=== PATIENT | female | born 1990 | race American Indian/Alaskan Native ===

== ENCOUNTER 2018-07-08 14:14 | Inpatient (IN) | payer MEDICAID ==
[2018-07-08] MEDS ORDERED: TYLENOL PO PRN (15:34)
[2018-07-08] MEDS: BENADRYL IV PRN (18:44)
[2018-07-08] MEDS: DILAUDID IV SCH ×3 (18:44→23:42)
[2018-07-08 18:52] LABS: Hemoglobin 6.2 gm/dl (10.1-14.3); Mean Corpuscular HGB Conc 35 % (30-34); Mean Corpuscular Volume 90 fl (79-97); Platelet Count 267 K/mm3 (140-440); Red Blood Count 1.96 M/mm3 (3.65-5.03)
[2018-07-08] MEDS ORDERED: ZOFRAN IV PRN (19:02)
[2018-07-08 19:08] LABS: Hematocrit 17.6 % (30.3-42.9); Red Cell Distribution Width 21.9 % (13.2-15.2)
--- NOTE | 2018-07-08 19:11 | History and Physical Report ---
History of Present Illness Date of examination: 07/08/18 Date of admission: 07/08/18 16:37 Chief complaint: Sickle pain crisis. History of present illness: Patient seen/examined, she had presented to the office, with pain crisis, and low grade temp. she was examined, and determined that she needed a direct admit to the Hospital , for sxs control, and management of other co morbid issues. She was in the hospital ER few days ago, hydrated, and went home but pain crisis started again, hence this admission. she does have hx of chronic iron overload, due to multiple blood transfusion.Will check her iron level this admission. Past History Past Medical History: anemia Social history: single, lives with family Family history: no significant family history Medications and Allergies Allergies Allergy/AdvReac Type Severity Reaction Status Date / Time morphine Allergy Unknown Verified 01/24/18 13:20 oxycodone [From Percocet] Allergy Unknown Verified 01/24/18 13:20 vancomycin AdvReac Unknown Verified 01/24/18 13:20 Home Medications Medication Instructions Recorded Confirmed Last Taken Type Folic Acid [Folvite] 1 mg PO DAILY 01/24/18 03/25/18 2 Days Ago History ~01/22/18 10 Hydroxyurea [Hydrea] 500 mg PO DAILY 01/24/18 03/25/18 2 Days Ago History ~01/22/18 500 OxyCONTIN ER TAB 10 mg PO Q12H 03/25/18 03/25/18 Unknown History Active Meds: Active Medications Acetaminophen (Tylenol) 650 mg PO Q6H PRN PRN Reason: Fever >100 Diphenhydramine HCl (Benadryl) 25 mg IV Q6H PRN PRN Reason: Itching Last Admin: 07/08/18 18:44 Dose: 25 mg Documented by: Folic Acid (Folvite) 1 mg PO DAILY [facility] Heparin Sodium (Porcine) (Heparin) 5,000 unit SUB-Q Q12HR SONAL Hydromorphone HCl (Dilaudid) 3 mg IV Q3H SONAL Stop: 07/09/18 16:59 Last Admin: 07/08/18 18:44 Dose: 3 mg Documented by: Hydromorphone HCl (Dilaudid) 2 mg IV Q3H PRN PRN Reason: Pain, Moderate (4-6) Hydroxyurea (Hydrea) 500 mg PO DAILY SONAL Dextrose/Sodium Chloride (D5ns 0.2%) 1,000 mls @ 250 mls/hr IV DIRECT SONAL Miscellaneous Medication (Oxycontin Er Tab) 10 mg PO Q12H SONAL Ondansetron HCl (Zofran) 4 mg IV Q8H PRN PRN Reason: Nausea And Vomiting Review of Systems Constitutional: fatigue, chronic pain Breasts: deferred Respiratory: dyspnea on exertion Menstruation: period normal Musculoskeletal: low back pain Integumentary: dryness Exam - Constitutional Vitals: Temp Pulse Resp BP Pulse Ox 99.6 F 105 H 20 110/68 93 07/08/18 17:31 07/08/18 17:31 07/08/18 17:31 07/08/18 17:31 07/08/18 17:31 General appearance: Present: mild distress, well-nourished - EENT Eyes: Present: PERRL ENT: hearing intact, clear oral mucosa - Neck Neck: Present: supple, normal ROM - Respiratory Respiratory: bilateral: CTA - Cardiovascular Heart Sounds: Present: S1 & S2. Absent: rub, click - Extremities Extremities: pulses symmetrical, No edema Peripheral Pulses: within normal limits - Abdominal General gastrointestinal: Present: soft, non-tender, non-distended, normal bowel sounds Female genitourinary: Present: deferred, normal - Rectal Rectal Exam: deferred - Integumentary Integumentary: Present: clear, warm, dry - Musculoskeletal Musculoskeletal: gait normal, strength equal bilaterally - Psychiatric Psychiatric: appropriate mood/affect, intact judgment & insight - Neurologic Neurologic: CNII-XII intact, moves all extremities Assessment and Plan - Patient Problems (1) Anemia Current Visit: No Status: Chronic Plan to address problem: Replacement transfusion. (2) Iron overload due to repeated red blood cell transfusions Current Visit: No Status: Chronic Plan to address problem: monitor iron level. (3) Dehydration Current Visit: No Status: Acute Plan to address problem: hydration. (4) Leukocytosis Current Visit: No Status: Resolved (5) Sickle cell pain crisis Current Visit: No Status: Acute Plan to address problem: pain control
[2018-07-08] MEDS ORDERED: OXYCONTIN 10 MG PO SCH (19:15)
[2018-07-08] MEDS ORDERED: NACL 0.9% 500 ML 500 ML IV SCH (19:18)
[2018-07-08 19:47] LABS: Basophils % (Manual) 0 % (0.0-1.8); Total Cells Counted 100
[2018-07-08 19:48] LABS: Anisocytosis 2+
[2018-07-08 19:49] LABS: Poikilocytosis 1+; Sickle Cells 2+; Target Cells Few
[2018-07-08 19:51] LABS: Giant Platelets Few; Hypochromasia 2+; Large Platelets Few; Platelet Estimate Consistent w Auto
[2018-07-08 20:07] LABS: % Iron Saturation 52.44 %; Alanine Aminotransferase 34 units/L (7-56); Albumin 4.3 g/dL (3.9-5); BUN/Creatinine Ratio 17; Blood Urea Nitrogen 12 mg/dL (7-17); Calcium 8.8 mg/dL (8.4-10.2); Hemolysis Index 30; Iron 86 ug/dL (37-170); Total Iron Binding Capacity 164 mcg/dL (250-450)
[2018-07-08] MEDS: OxyCONTIN PO SCH (23:15)
[2018-07-08] MEDS: HEPARIN SUB-Q SCH (23:15)
[2018-07-08] MEDS: D5NS 0.2% 1,000 ML IV SCH (23:15)
[2018-07-09] MEDS: BENADRYL IV PRN ×4 (02:41→23:01)
[2018-07-09] MEDS: DILAUDID IV SCH ×5 (02:41→15:29)
[2018-07-09] MEDS: D5NS 0.2% 1,000 ML IV SCH ×3 (02:58→18:24)
[2018-07-09] MEDS: HEPARIN SUB-Q SCH ×2 (09:05→22:42)
[2018-07-09] MEDS: HYDREA PO SCH (09:05)
[2018-07-09] MEDS: FOLVITE PO SCH (09:05)
[2018-07-09] MEDS: OxyCONTIN PO SCH ×2 (10:10→22:43)
--- NOTE | 2018-07-09 16:24 | Progress Note ---
Assessment and Plan - Patient Problems (1) Anemia Current Visit: No Status: Chronic Plan to address problem: Replacement transfusion. completed. (2) Iron overload due to repeated red blood cell transfusions Current Visit: No Status: Chronic Plan to address problem: monitor iron level. elevated,and will do a chelating tx. (3) Dehydration Current Visit: No Status: Acute Plan to address problem: hydration. (4) Sickle cell pain crisis Current Visit: No Status: Acute Plan to address problem: pain control Subjective Date of service: 07/09/18 Principal diagnosis: SCD/Pain crisis/anemia. Interval history: Patient seen/examined, resting in bed, records reviewed, case d/w patient.She is s/p PRBC replacement transfusion.Will start her on Iron chelator. She also complained of lack of appetite, and will give an enhancement. Objective - Constitutional Vitals: Vital Signs - 12hr 07/09/18 07/09/18 07/09/18 05:44 05:48 08:34 Temperature 98.2 F 98.2 F Pulse Rate 99 H 95 H Respiratory 16 16 18 Rate Blood Pressure 114/46 109/54 O2 Sat by Pulse 97 99 Oximetry 07/09/18 07/09/18 07/09/18 08:48 09:03 09:33 Temperature 98.1 F 98.7 F 98.4 F Pulse Rate 89 82 92 H Respiratory 18 18 18 Rate Blood Pressure 109/54 113/59 114/65 O2 Sat by Pulse 97 98 98 Oximetry 07/09/18 07/09/18 07/09/18 10:03 10:05 10:33 Temperature 98.1 F 98.3 F Pulse Rate 89 90 90 Respiratory 18 18 18 Rate Blood Pressure 116/71 114/65 111/70 O2 Sat by Pulse 98 98 99 Oximetry 07/09/18 07/09/18 07/09/18 11:03 11:15 12:00 Temperature 98.4 F 98.0 F 98.4 F Pulse Rate 90 95 H 88 Respiratory 18 20 18 Rate Blood Pressure 110/69 111/70 110/69 O2 Sat by Pulse 98 91 98 Oximetry 07/09/18 07/09/18 07/09/18 12:15 12:45 12:55 Temperature 98.2 F 98.6 F 98.5 F Pulse Rate 93 H 92 H 95 H Respiratory 18 18 18 Rate Blood Pressure 108/65 112/59 111/67 O2 Sat by Pulse 97 94 98 Oximetry 07/09/18 07/09/18 07/09/18 13:04 13:21 13:51 Temperature 98.7 F 98.8 F Pulse Rate 88 92 H Respiratory 18 18 Rate Blood Pressure 112/71 101/69 O2 Sat by Pulse 94 97 98 Oximetry 07/09/18 14:21 Temperature 98.9 F Pulse Rate 18 L Respiratory 18 Rate Blood Pressure 114/77 O2 Sat by Pulse 98 Oximetry General appearance: Present: mild distress - EENT Eyes: PERRL, EOM intact ENT: hearing intact, clear oral mucosa Ears: bilateral: normal - Neck Neck: supple, normal ROM - Respiratory Respiratory effort: normal Respiratory: bilateral: CTA - Breasts Breasts: deferred - Cardiovascular Rhythm: regular Heart Sounds: Present: S1 & S2. Absent: gallop, rub Extremities: pulses intact, No edema, normal color, Full ROM - Gastrointestinal General gastrointestinal: Present: soft, non-tender, non-distended, normal bowel sounds Rectal Exam: deferred - Genitourinary Female genitourinary: deferred - Integumentary Integumentary: clear, warm, dry - Musculoskeletal Musculoskeletal: 1, strength equal bilaterally - Neurologic Neurologic: moves all extremities - Psychiatric Psychiatric: memory intact, appropriate mood/affect, intact judgment & insight - Labs CBC & Chem 7: 07/08/18 18:22 07/08/18 18:22 Labs: Abnormal lab results 07/08/18 07/08/18 07/08/18 Range/Units 18:22 18:22 20:38 WBC 18.3 H (4.5-11.0) K/mm3 RBC 1.96 L (3.65-5.03) M/mm3 Hgb 6.2 L (10.1-14.3) gm/dl Hct 17.6 L* (30.3-42.9) % MCHC 35 H (30-34) % RDW 21.9 H (13.2-15.2) % Lymphocytes % (Manual) 43.0 H (13.4-35.0) % Monocytes % (Manual) 11.0 H (0.0-7.3) % Nucleated RBC % 3.0 H (0.0-0.9) % Seg Neutrophils # Man 7.9 H (1.8-7.7) K/mm3 Lymphocytes # (Manual) 7.9 H (1.2-5.4) K/mm3 Monocytes # (Manual) 2.0 H (0.0-0.8) K/mm3 Eosinophils # (Manual) 0.5 H (0.0-0.4) K/mm3 Sodium 136 L (137-145) mmol/L TIBC 164 L (250-450) mcg/dL Transferrin 133 L (192-382) mg/dl Ferritin 3603.0 H (13.0-400.0) ng/mL Total Bilirubin 3.30 H (0.1-1.2) mg/dL AST 102 H (5-40) units/L Lactate Dehydrogenase 696 H (91-180) units/L Crossmatch 07/08/18 Range/Units 20:38 WBC (4.5-11.0) K/mm3 RBC (3.65-5.03) M/mm3 Hgb (10.1-14.3) gm/dl Hct (30.3-42.9) % MCHC (30-34) % RDW (13.2-15.2) % Lymphocytes % (Manual) (13.4-35.0) % Monocytes % (Manual) (0.0-7.3) % Nucleated RBC % (0.0-0.9) % Seg Neutrophils # Man (1.8-7.7) K/mm3 Lymphocytes # (Manual) (1.2-5.4) K/mm3 Monocytes # (Manual) (0.0-0.8) K/mm3 Eosinophils # (Manual) (0.0-0.4) K/mm3 Sodium (137-145) mmol/L TIBC (250-450) mcg/dL Transferrin (192-382) mg/dl Ferritin (13.0-400.0) ng/mL Total Bilirubin (0.1-1.2) mg/dL AST (5-40) units/L Lactate Dehydrogenase (91-180) units/L Crossmatch See Detail Medications & Allergies - Medications Allergies/Adverse Reactions: Allergies morphine Allergy (Verified 01/24/18 13:20) Unknown oxycodone [From Percocet] Allergy (Verified 01/24/18 13:20) Unknown vancomycin Adverse Reaction (Verified 01/24/18 13:20) Unknown Home Medications: Home Medications Medication Instructions Recorded Confirmed Last Taken Type Folic Acid [Folvite] 1 mg PO DAILY 01/24/18 07/08/18 2 Days Ago History ~01/22/18 10 Hydroxyurea [Hydrea] 1,500 mg PO DAILY 01/24/18 07/08/18 2 Days Ago History ~01/22/18 500 OxyCONTIN ER TAB 10 mg PO Q12H 03/25/18 07/08/18 Unknown History Hydromorphone HCl [Dilaudid] 4 mg PO Q3H PRN 07/08/18 07/08/18 Unknown History Ibuprofen [Ibu] 800 mg PO Q6H 07/08/18 07/08/18 Unknown History Active Medications: Generic Name Dose Route Start Last Admin Trade Name Freq PRN Reason Stop Dose Admin Acetaminophen 650 mg 07/08/18 15:34 Tylenol PO Q6H PRN Fever >100 Diphenhydramine HCl 25 mg 07/08/18 15:50 07/09/18 15:30 Benadryl IV 25 mg Q6H PRN Administration Itching Folic Acid 1 mg 07/09/18 10:00 07/09/18 09:05 Folvite PO 1 mg DAILY SONAL Administration Heparin Sodium (Porcine) 5,000 unit 07/08/18 22:00 07/09/18 09:05 Heparin SUB-Q Not Given Q12HR SONAL Hydromorphone HCl 3 mg 07/08/18 17:00 07/09/18 15:29 Dilaudid IV 07/09/18 16:59 3 mg Q3H SONAL Administration Hydromorphone HCl 2 mg 07/09/18 20:00 Dilaudid IV Q3H PRN Pain, Moderate (4-6) Hydroxyurea 500 mg 07/09/18 10:00 07/09/18 09:05 Hydrea PO 500 mg DAILY SONAL Administration Dextrose/Sodium Chloride 1,000 mls @ 250 mls/hr 07/08/18 16:00 07/09/18 06:44 D5ns 0.2% IV 250 mls/hr DIRECT SONAL Administration Sodium Chloride 500 mls @ 0 mls/hr 07/08/18 19:18 Nacl 0.9% 500 Ml IV 07/09/18 19:17 ONCE SONAL As Directed Ondansetron HCl 4 mg 07/08/18 19:02 Zofran IV Q8H PRN Nausea And Vomiting Oxycodone HCl 10 mg 07/08/18 22:00 07/09/18 10:10 Oxycontin PO 10 mg Q12HR SONAL Administration
[2018-07-09] MEDS ORDERED: DILAUDID IV PRN (19:30)
[2018-07-09] MEDS: DILAUDID IV PRN ×2 (19:47→23:00)
[2018-07-09] MEDS: [UNRECOGNIZED DRUG - OTHER] IV SCH (20:05)
[2018-07-09] MEDS: NACL 0.9% IV SCH (20:05)
[2018-07-09 20:21] LABS: Hematocrit 22.7 % (30.3-42.9); Hemoglobin 7.9 gm/dl (10.1-14.3); Mean Corpuscular HGB Conc 35 % (30-34); Mean Corpuscular Volume 86 fl (79-97); Platelet Count 239 K/mm3 (140-440); Red Blood Count 2.65 M/mm3 (3.65-5.03); Red Cell Distribution Width 17.4 % (13.2-15.2)
[2018-07-09 21:58] LABS: Basophils % (Manual) 0 % (0.0-1.8); Total Cells Counted 100
[2018-07-09 21:59] LABS: Anisocytosis 2+; Platelet Estimate Consistent w Auto; Sickle Cells 1+; Target Cells 1+
[2018-07-09] MEDS: PERIACTIN PO SCH (22:42)
[2018-07-10] MEDS: D5NS 0.2% 1,000 ML IV SCH ×3 (05:19→15:38)
[2018-07-10] MEDS: DILAUDID IV PRN ×6 (05:19→23:35)
[2018-07-10] MEDS: PERIACTIN PO SCH ×4 (05:29→21:53)
[2018-07-10 05:49] LABS: Hematocrit 23.4 % (30.3-42.9); Hemoglobin 8.3 gm/dl (10.1-14.3); Mean Corpuscular HGB Conc 36 % (30-34); Mean Corpuscular Volume 85 fl (79-97); Platelet Count 257 K/mm3 (140-440); Red Blood Count 2.75 M/mm3 (3.65-5.03); Red Cell Distribution Width 17.9 % (13.2-15.2)
[2018-07-10 06:10] LABS: BUN/Creatinine Ratio 12; Blood Urea Nitrogen 6 mg/dL (7-17); Calcium 8.4 mg/dL (8.4-10.2); Hemolysis Index 24
[2018-07-10 06:58] LABS: Anisocytosis 1+; Band Neutrophils # (Manual) 0.4 K/mm3; Basophils % (Manual) 0 % (0.0-1.8); Platelet Estimate Consistent w Auto; Sickle Cells 1+; Target Cells 1+; Total Cells Counted 100
[2018-07-10] MEDS: BENADRYL IV PRN ×3 (08:22→23:35)
[2018-07-10] MEDS: FOLVITE PO SCH (09:45)
[2018-07-10] MEDS: HEPARIN SUB-Q SCH ×2 (09:46→21:55)
[2018-07-10] MEDS: HYDREA PO SCH (10:41)
[2018-07-10] MEDS: OxyCONTIN PO SCH ×2 (10:41→21:53)
--- NOTE | 2018-07-10 14:05 | Progress Note ---
Assessment and Plan - Patient Problems (1) Anemia Current Visit: No Status: Chronic Plan to address problem: Replacement transfusion. completed. (2) Iron overload due to repeated red blood cell transfusions Current Visit: No Status: Chronic Plan to address problem: monitor iron level. elevated,and will do a chelating tx. (3) Dehydration Current Visit: No Status: Acute Plan to address problem: hydration. (4) Sickle cell pain crisis Current Visit: No Status: Acute Plan to address problem: pain control Subjective Date of service: 07/10/18 Principal diagnosis: SCD/Pain crisis/anemia. Interval history: Patient seen/examined, resting in bed, records reviewed, case d/w patient.She is s/p PRBC replacement transfusion.Will start her on Iron chelator. She also complained of lack of appetite, and will give an enhancement. Patient seen/examined, resting in bed. pain still at 7/10, tolerating desferal ok. Retic count still up at 19+, cultures negative so far. Objective - Constitutional Vitals: Vital Signs - 12hr 07/10/18 07/10/18 07/10/18 05:09 10:00 12:00 Temperature 99.2 F 98.4 F Pulse Rate 91 H 94 H Respiratory 16 18 Rate Blood Pressure 138/86 Blood Pressure 118/68 [Left] O2 Sat by Pulse 95 94 95 Oximetry General appearance: Present: mild distress - EENT Eyes: PERRL, EOM intact ENT: hearing intact, clear oral mucosa Ears: bilateral: normal - Neck Neck: supple, normal ROM - Respiratory Respiratory effort: normal Respiratory: bilateral: CTA - Cardiovascular Rhythm: regular Heart Sounds: Present: S1 & S2. Absent: gallop, rub Extremities: pulses intact, No edema, normal color, Full ROM - Gastrointestinal General gastrointestinal: Present: soft, non-tender, non-distended, normal bowel sounds Rectal Exam: deferred - Genitourinary Female genitourinary: deferred - Integumentary Integumentary: clear, warm, dry - Musculoskeletal Musculoskeletal: 1, strength equal bilaterally - Neurologic Neurologic: moves all extremities - Psychiatric Psychiatric: memory intact, appropriate mood/affect, intact judgment & insight - Labs CBC & Chem 7: 07/10/18 05:30 07/10/18 05:30 Labs: Abnormal lab results 02/01/19 02/02/19 02/03/19 Range/Units 20:38 19:30 05:30 WBC 16.7 H 14.4 H (4.5-11.0) K/mm3 RBC 2.65 L 2.75 L (3.65-5.03) M/mm3 Hgb 7.9 L 8.3 L (10.1-14.3) gm/dl Hct 22.7 L 23.4 L (30.3-42.9) % MCHC 35 H 36 H (30-34) % RDW 17.4 H 17.9 H (13.2-15.2) % Seg Neuts % (Manual) 20.0 L 28.0 L (40.0-70.0) % Lymphocytes % (Manual) 70.0 H 60.0 H (13.4-35.0) % Eosinophils % (Manual) 7.0 H (0.0-4.3) % Nucleated RBC % 1.0 H 3.0 H (0.0-0.9) % Lymphocytes # (Manual) 11.7 H 8.6 H (1.2-5.4) K/mm3 Monocytes # (Manual) 0.9 H (0.0-0.8) K/mm3 Eosinophils # (Manual) 1.2 H (0.0-0.4) K/mm3 Percent Retic 19.76 H (0.78-2.58) % BUN (7-17) mg/dL Creatinine (0.7-1.2) mg/dL Glucose (65-100) mg/dL Crossmatch See Detail 07/10/18 Range/Units 05:30 WBC (4.5-11.0) K/mm3 RBC (3.65-5.03) M/mm3 Hgb (10.1-14.3) gm/dl Hct (30.3-42.9) % MCHC (30-34) % RDW (13.2-15.2) % Seg Neuts % (Manual) (40.0-70.0) % Lymphocytes % (Manual) (13.4-35.0) % Eosinophils % (Manual) (0.0-4.3) % Nucleated RBC % (0.0-0.9) % Lymphocytes # (Manual) (1.2-5.4) K/mm3 Monocytes # (Manual) (0.0-0.8) K/mm3 Eosinophils # (Manual) (0.0-0.4) K/mm3 Percent Retic (0.78-2.58) % BUN 6 L (7-17) mg/dL Creatinine 0.5 L (0.7-1.2) mg/dL Glucose 101 H (65-100) mg/dL Crossmatch Medications & Allergies - Medications Allergies/Adverse Reactions: Allergies morphine Allergy (Verified 01/24/18 13:20) Unknown oxycodone [From Percocet] Allergy (Verified 01/24/18 13:20) Unknown vancomycin Adverse Reaction (Verified 01/24/18 13:20) Unknown Home Medications: Home Medications Medication Instructions Recorded Confirmed Last Taken Type Folic Acid [Folvite] 1 mg PO DAILY 01/24/18 07/08/18 2 Days Ago History ~01/22/18 10 Hydroxyurea [Hydrea] 1,500 mg PO DAILY 01/24/18 07/08/18 2 Days Ago History ~01/22/18 500 OxyCONTIN ER TAB 10 mg PO Q12H 03/25/18 07/08/18 Unknown History Hydromorphone HCl [Dilaudid] 4 mg PO Q3H PRN 07/08/18 07/08/18 Unknown History Ibuprofen [Ibu] 800 mg PO Q6H 07/08/18 07/08/18 Unknown History Active Medications: Generic Name Dose Route Start Last Admin Trade Name Freq PRN Reason Stop Dose Admin Acetaminophen 650 mg 07/08/18 15:34 Tylenol PO Q6H PRN Fever >100 Cyproheptadine HCl 4 mg 07/09/18 22:00 07/10/18 09:47 Periactin PO 4 mg Q8HR SONAL Administration Diphenhydramine HCl 25 mg 07/08/18 15:50 07/10/18 08:22 Benadryl IV 25 mg Q6H PRN Administration Itching Folic Acid 1 mg 07/09/18 10:00 07/10/18 09:45 Folvite PO 1 mg DAILY SONAL Administration Heparin Sodium (Porcine) 5,000 unit 07/08/18 22:00 07/10/18 09:46 Heparin SUB-Q Not Given Q12HR SONAL Hydromorphone HCl 2 mg 07/09/18 20:00 07/10/18 12:27 Dilaudid IV 2 mg Q3H PRN Administration Pain, Moderate (4-6) Hydroxyurea 500 mg 07/09/18 10:00 07/10/18 10:41 Hydrea PO 500 mg DAILY SONAL Administration Dextrose/Sodium Chloride 1,000 mls @ 250 mls/hr 07/08/18 16:00 07/10/18 10:42 D5ns 0.2% IV 250 mls/hr DIRECT SONAL Administration Deferoxamine Mesylate 3,350 mg 250 mls @ 32 mls/hr 07/09/18 18:00 07/09/18 20:05 / Sodium Chloride IV 07/12/18 01:49 32 mls/hr Q24H SONAL Administration Ondansetron HCl 4 mg 07/08/18 19:02 07/09/18 20:13 Zofran IV 4 mg Q8H PRN Administration Nausea And Vomiting Oxycodone HCl 10 mg 07/08/18 22:00 07/10/18 10:41 Oxycontin PO 10 mg Q12HR SONAL Administration
[2018-07-10] MEDS: [UNRECOGNIZED DRUG - OTHER] IV SCH (17:34)
[2018-07-10] MEDS: NACL 0.9% IV SCH (17:34)
[2018-07-11] MEDS: DILAUDID IV PRN ×6 (02:59→21:11)
[2018-07-11] MEDS: BENADRYL IV PRN ×3 (05:51→21:11)
[2018-07-11] MEDS: PERIACTIN PO SCH ×3 (05:52→21:11)
[2018-07-11] MEDS: D5NS 0.2% 1,000 ML IV SCH (06:04)
[2018-07-11] MEDS: HYDREA PO SCH (09:36)
[2018-07-11] MEDS: FOLVITE PO SCH (09:36)
[2018-07-11] MEDS: OxyCONTIN PO SCH ×2 (10:43→22:44)
[2018-07-11] MEDS: HEPARIN SUB-Q SCH ×2 (10:43→21:11)
[2018-07-11] MEDS: [UNRECOGNIZED DRUG - OTHER] IV SCH (18:50)
[2018-07-11] MEDS: NACL 0.9% IV SCH (18:50)
[2018-07-11] MEDS ORDERED: MIRALAX 3350 PO PRN (19:20)
--- NOTE | 2018-07-11 19:25 | Progress Note ---
Assessment and Plan - Patient Problems (1) Anemia Current Visit: No Status: Chronic Plan to address problem: Replacement transfusion. completed. (2) Iron overload due to repeated red blood cell transfusions Current Visit: No Status: Chronic Plan to address problem: monitor iron level. elevated,and will do a chelating tx. (3) Dehydration Current Visit: No Status: Acute Plan to address problem: hydration. (4) Sickle cell pain crisis Current Visit: No Status: Acute Plan to address problem: pain control Subjective Date of service: 07/11/18 Principal diagnosis: SCD/Pain crisis/anemia. Interval history: Patient seen/examined, resting in bed, records reviewed, case d/w patient.She is s/p PRBC replacement transfusion.Will start her on Iron chelator. She also complained of lack of appetite, and will give an enhancement. Patient seen/examined, resting in bed. pain still at 7/10, tolerating desferal ok. Retic count still up at 19+, cultures negative so far. Patient seen/examined, resting in bed, c/o pain at 6/10, at this time.will d/c home tomorrow. Objective - Constitutional Vitals: Vital Signs - 12hr 07/11/18 07/11/18 12:51 18:41 Temperature 98.5 F 98.6 F Pulse Rate 96 H 94 H Respiratory 15 16 Rate Blood Pressure 113/71 121/72 O2 Sat by Pulse 95 95 Oximetry General appearance: Present: mild distress, well-nourished - EENT Eyes: PERRL, EOM intact ENT: hearing intact, clear oral mucosa Ears: bilateral: normal - Neck Neck: supple, normal ROM - Respiratory Respiratory effort: normal Respiratory: bilateral: CTA - Breasts Breasts: deferred - Cardiovascular Rhythm: regular Heart Sounds: Present: S1 & S2. Absent: gallop, rub Extremities: pulses intact, No edema, normal color, Full ROM - Gastrointestinal General gastrointestinal: Present: soft, non-tender, non-distended, normal bowel sounds Rectal Exam: deferred - Genitourinary Female genitourinary: deferred - Integumentary Integumentary: clear, warm, dry - Musculoskeletal Musculoskeletal: 1, strength equal bilaterally - Neurologic Neurologic: moves all extremities - Psychiatric Psychiatric: memory intact, appropriate mood/affect, intact judgment & insight - Labs CBC & Chem 7: 07/10/18 05:30 07/10/18 05:30 Medications & Allergies - Medications Allergies/Adverse Reactions: Allergies morphine Allergy (Verified 01/24/18 13:20) Unknown oxycodone [From Percocet] Allergy (Verified 01/24/18 13:20) Unknown vancomycin Adverse Reaction (Verified 01/24/18 13:20) Unknown Home Medications: Home Medications Medication Instructions Recorded Confirmed Last Taken Type Folic Acid [Folvite] 1 mg PO DAILY 01/24/18 07/08/18 2 Days Ago History ~01/22/18 10 Hydroxyurea [Hydrea] 1,500 mg PO DAILY 01/24/18 07/08/18 2 Days Ago History ~01/22/18 500 OxyCONTIN ER TAB 10 mg PO Q12H 03/25/18 07/08/18 Unknown History Hydromorphone HCl [Dilaudid] 4 mg PO Q3H PRN 07/08/18 07/08/18 Unknown History Ibuprofen [Ibu] 800 mg PO Q6H 07/08/18 07/08/18 Unknown History Active Medications: Generic Name Dose Route Start Last Admin Trade Name Freq PRN Reason Stop Dose Admin Acetaminophen 650 mg 07/08/18 15:34 Tylenol PO Q6H PRN Fever >100 Cyproheptadine HCl 4 mg 07/09/18 22:00 07/11/18 15:49 Periactin PO 4 mg Q8HR SONAL Administration Diphenhydramine HCl 25 mg 07/08/18 15:50 07/11/18 12:35 Benadryl IV 25 mg Q6H PRN Administration Itching Folic Acid 1 mg 07/09/18 10:00 07/11/18 09:36 Folvite PO 1 mg DAILY SONAL Administration Heparin Sodium (Porcine) 5,000 unit 07/08/18 22:00 07/11/18 10:43 Heparin SUB-Q Not Given Q12HR SONAL Hydromorphone HCl 2 mg 07/09/18 20:00 07/11/18 15:52 Dilaudid IV 2 mg Q3H PRN Administration Pain, Moderate (4-6) Hydroxyurea 500 mg 07/09/18 10:00 07/11/18 09:36 Hydrea PO 500 mg DAILY SONAL Administration Dextrose/Sodium Chloride 1,000 mls @ 250 mls/hr 07/08/18 16:00 07/11/18 06:04 D5ns 0.2% IV 250 mls/hr DIRECT SONAL Administration Deferoxamine Mesylate 3,350 mg 250 mls @ 32 mls/hr 07/09/18 18:00 07/11/18 18:50 / Sodium Chloride IV 07/12/18 01:49 32 mls/hr Q24H SONAL Administration Ondansetron HCl 4 mg 07/08/18 19:02 07/09/18 20:13 Zofran IV 4 mg Q8H PRN Administration Nausea And Vomiting Oxycodone HCl 10 mg 07/08/18 22:00 07/11/18 10:43 Oxycontin PO 10 mg Q12HR SONAL Administration Polyethylene Glycol 17 gm 07/11/18 19:20 Miralax 3350 PO BID PRN Constipation
[2018-07-12] MEDS: DILAUDID IV PRN ×7 (00:09→20:01)
[2018-07-12] MEDS: BENADRYL IV PRN ×3 (03:23→17:00)
[2018-07-12] MEDS: D5W IV SCH ×4 (03:25→15:28)
[2018-07-12] MEDS: NACL IV SCH ×4 (03:25→15:28)
[2018-07-12] MEDS: PERIACTIN PO SCH ×2 (06:21→13:42)
[2018-07-12 06:26] LABS: Hemoglobin 7.2 gm/dl (10.1-14.3); Mean Corpuscular HGB Conc 34 % (30-34); Mean Corpuscular Volume 86 fl (79-97); Platelet Count 272 K/mm3 (140-440); Red Blood Count 2.44 M/mm3 (3.65-5.03); Red Cell Distribution Width 17.6 % (13.2-15.2)
[2018-07-12 08:50] LABS: Anisocytosis 2+; Basophils % (Manual) 0 % (0.0-1.8); Total Cells Counted 100
[2018-07-12 08:51] LABS: Ovalocytes Few; Platelet Estimate Consistent w Auto; Sickle Cells 2+; Target Cells Few
[2018-07-12] MEDS: FOLVITE PO SCH (09:35)
[2018-07-12] MEDS: HYDREA PO SCH (09:36)
[2018-07-12] MEDS: HEPARIN SUB-Q SCH (11:51)
[2018-07-12] MEDS: OxyCONTIN PO SCH (11:53)
[2018-07-12 16:50] VITALS: BP 126/76
--- NOTE | 2018-07-12 20:03 | Discharge Summary ---
Providers - Providers Date of Admission: 07/08/18 16:37 Date of discharge: 07/12/18 Attending physician: CAM PARSON Primary care physician: CAM PARSON Hospitalization Reason for admission: Sickle pain crisis. Condition: Stable Hospital course: Patient was seen/examined in the office, and admitted directly into the hospital for sxs control, and management. She was treated with hydration, pain control, and given 2units PRBC replacement transfusion, which she tolerated fairly well.She also had iron chelation, for iron overload. She is seen today, examined, labs reviewed, some delusional effect on the hgb.NAD, she will be d/c home this evening. I have spoken to her mom.She will see me in the office. Disposition: TO HOME OR SELFCARE - Discharge Diagnoses (1) Anemia Status: Chronic (2) Iron overload due to repeated red blood cell transfusions Status: Chronic (3) Dehydration Status: Resolved (4) Sickle cell pain crisis Status: Resolved Core Measure Documentation - Palliative Care Palliative Care/ Comfort Measures: Not Applicable - Core Measures Any of the following diagnoses?: none Exam - Constitutional Vitals: Temp Pulse Resp BP Pulse Ox 98.9 F 104 H 18 126/76 94 07/12/18 16:28 07/12/18 16:28 07/12/18 16:28 07/12/18 16:28 07/12/18 16:28 General appearance: Present: no acute distress, well-nourished - EENT Eyes: Present: PERRL ENT: hearing intact, clear oral mucosa - Neck Neck: Present: supple, normal ROM - Respiratory Respiratory effort: normal Respiratory: bilateral: CTA - Cardiovascular Heart Sounds: Present: S1 & S2. Absent: rub, click - Extremities Extremities: pulses symmetrical, No edema Peripheral Pulses: within normal limits - Abdominal General gastrointestinal: Present: soft, non-tender, non-distended, normal bowel sounds Female genitourinary: Present: deferred - Rectal Rectal Exam: deferred - Integumentary Integumentary: Present: clear, warm, dry - Musculoskeletal Musculoskeletal: gait normal, strength equal bilaterally - Psychiatric Psychiatric: appropriate mood/affect, intact judgment & insight - Neurologic Neurologic: CNII-XII intact, moves all extremities Plan Activity: no restrictions Diet: regular Follow up with: CAM PARSON DO [Primary Care Provider] - 7 Days
== END 2018-07-12 21:16 | disposition home or self-care (01) | DRG 812 ==
LOC: 3A 14:14 → UNDOADMIN 14:14 → 3A 16:37
PROVIDERS: ADMIT Internal Medicine Hematology & Oncology; ATTEND Internal Medicine Hematology & Oncology
PROC: 30233N1 Transfusion of Nonautologous Red Blood Cells into Peripheral Vein, Percutaneous Approach (ICD-10-PCS; principal; 2018-07-09)
DX: D57.00 Hb-SS disease with crisis, unspecified (principal); E86.0 Dehydration; D64.9 Anemia, unspecified; E83.111 Hemochromatosis due to repeated red blood cell transfusions; G89.29 Other chronic pain; D72.829 Elevated white blood cell count, unspecified; Z88.5 Allergy status to narcotic agent; Z88.1 Allergy status to other antibiotic agents; Z79.899 Other long term (current) drug therapy
CPT/HCPCS: 36415; 80048; 80053; 82728; 83550; 83615; 85007; 85025; 85045; 85660; 86850; 86870; 86900; 86901; 86922; 87040; 94760; G0378; J0895; J1170; J1200; J1644; J2405; J7040; J7050; J7070; J7131; P9016

== ENCOUNTER 2018-08-15 11:27 | Inpatient (IN) | payer MEDICAID ==
--- NOTE | 2018-08-15 11:38 | Emergency Department Report ---
Blank Doc - Documentation Documentation: This is a 28-year-old female presents with generalized pain from sickle cell c risis with shortness of breathe. Denies any chest pain. 92% on room air. Tachycardia at 144 This initial assessment/diagnostic orders/clinical plan/treatment(s) is/are subject to change based on patient's health status, clinical progression and re- assessment by fellow clinical providers in the ED. Further treatment and workup at subsequent clinical providers discretion. Patient/guardians urged not to elope from the ED as their condition may be serious if not clinically assessed and managed. Initial orders include: 1- Patient sent to MAIN ED for further evaluation and treatment 2- Labs 3- EKG 4- CXR 5- O2 oxygen 4L
[2018-08-15 11:58] LABS: Hematocrit 20.7 % (30.3-42.9); Hemoglobin 7.2 gm/dl (10.1-14.3); Mean Corpuscular HGB Conc 35 % (30-34); Mean Corpuscular Volume 100 fl (79-97); Platelet Count 282 K/mm3 (140-440); Red Blood Count 2.08 M/mm3 (3.65-5.03)
[2018-08-15] MEDS ORDERED: NACL 0.9% 1000 ML 1,000 ML IV ONE (11:58)
[2018-08-15 12:03] LABS: Red Cell Distribution Width 30.7 % (13.2-15.2)
[2018-08-15 12:13] LABS: INR 0.99 (0.87-1.13)
[2018-08-15 12:14] LABS: Partial Thromboplastin Time 28.9 Sec. (24.2-36.6)
[2018-08-15 12:20] LABS: BUN/Creatinine Ratio 11; Blood Urea Nitrogen 10 mg/dL (7-17); Calcium 8.8 mg/dL (8.4-10.2); Hemolysis Index 21
--- NOTE | 2018-08-15 12:23 | XRay Report ---
AP CHEST: HISTORY: chest pain AP view of the chest demonstrates a normal mediastinal and cardiac contour with clear lungs and normal bony and soft tissue structures. Right [id number] is unchanged since 01/24/18. IMPRESSION: Unremarkable AP chest.
[2018-08-15 12:24] LABS: Albumin 4.1 g/dL (3.9-5); Bilirubin,Direct 0.8 mg/dL (0-0.2)
[2018-08-15] MEDS ORDERED: TORADOL IV ONE (12:25)
[2018-08-15] MEDS ORDERED: DILAUDID IV ONE ×2 (12:25→14:34)
[2018-08-15] MEDS ORDERED: BENADRYL IV ONE (12:37)
--- NOTE | 2018-08-15 13:08 | Emergency Department Report ---
ED General Adult HPI - General Chief complaint: Sickle Cell Crisis Stated complaint: SICKLE CELL Time Seen by Provider: 08/15/18 11:33 Source: patient Mode of arrival: Ambulatory Limitations: No Limitations - History of Present Illness Initial comments: 28-year-old female with history of sickle cell disease presents to ED with complaint of pain. Patient reports onset of pain approximately one week ago, states has been taking PO Dilaudid at home. Patient states pain worsened on yesterday. States pain initially began in bilateral ankles, now throughout the entire legs bilaterally. Denies chest pain, reports mild shortness of breath. He states baseline hemoglobin is around 7, usually gets transfused when hemoglobin reaches 6.5. Patient states she received a blood transfusion during her last admission here. Systems Operator: Shimon -: week(s) (1) Location: left, right, lower extremity Severity scale (0 -10): 8 Quality: aching Consistency: constant Improves with: none Worsens with: movement Associated Symptoms: shortness of breath. denies: chest pain, nausea/vomiting Treatments Prior to Arrival: other (dilaudid) - Related Data Home Medications Medication Instructions Recorded Confirmed Last Taken Folic Acid [Folvite] 1 mg PO DAILY 01/24/18 08/15/18 2 Days Ago ~01/22/18 10 Hydroxyurea [Hydrea] 1,500 mg PO DAILY 01/24/18 08/15/18 2 Days Ago ~01/22/18 500 OxyCONTIN ER TAB 10 mg PO Q12H 03/25/18 08/15/18 Unknown Hydromorphone HCl [Dilaudid] 4 mg PO Q3H PRN 07/08/18 08/15/18 Unknown Ibuprofen [Ibu] 800 mg PO Q6H 07/08/18 08/15/18 Unknown Allergies Allergy/AdvReac Type Severity Reaction Status Date / Time morphine Allergy Unknown Verified 01/24/18 13:20 oxycodone [From Percocet] Allergy Unknown Verified 01/24/18 13:20 vancomycin AdvReac Unknown Verified 01/24/18 13:20 ED Review of Systems ROS: Stated complaint: SICKLE CELL Other details as noted in HPI Comment: All other systems reviewed and negative Constitutional: denies: chills, fever Respiratory: shortness of breath Cardiovascular: denies: chest pain Gastrointestinal: denies: nausea, vomiting Musculoskeletal: arthralgia, other (denies leg swelling) ED Past Medical Hx - Past Medical History Hx Congestive Heart Failure: No Hx Diabetes: No Hx Sickle Cell Disease: Yes Hx Asthma: No Hx COPD: No - Surgical History Hx Appendectomy: Yes - Social History Smoking Status: Never Smoker Substance Use Type: None - Medications Home Medications: Home Medications Medication Instructions Recorded Confirmed Last Taken Type Folic Acid [Folvite] 1 mg PO DAILY 01/24/18 08/15/18 2 Days Ago History ~01/22/18 10 Hydroxyurea [Hydrea] 1,500 mg PO DAILY 01/24/18 08/15/18 2 Days Ago History ~01/22/18 500 OxyCONTIN ER TAB 10 mg PO Q12H 03/25/18 08/15/18 Unknown History Hydromorphone HCl [Dilaudid] 4 mg PO Q3H PRN 07/08/18 08/15/18 Unknown History Ibuprofen [Ibu] 800 mg PO Q6H 07/08/18 08/15/18 Unknown History ED Physical Exam - General Limitations: No Limitations General appearance: alert, in no apparent distress - Head Head exam: Present: atraumatic, normocephalic - Eye Eye exam: Present: normal appearance - ENT ENT exam: Present: mucous membranes moist - Neck Neck exam: Present: normal inspection - Respiratory Respiratory exam: Present: normal lung sounds bilaterally. Absent: respiratory distress - Cardiovascular Cardiovascular Exam: Present: normal rhythm, tachycardia - GI/Abdominal GI/Abdominal exam: Present: soft. Absent: distended, tenderness - Extremities Exam Extremities exam: Present: normal inspection. Absent: pedal edema, joint swelling - Neurological Exam Neurological exam: Present: alert, oriented X3, CN II-XII intact. Absent: motor sensory deficit - Psychiatric Psychiatric exam: Present: normal affect, normal mood - Skin Skin exam: Present: warm, dry, intact, normal color. Absent: rash ED Course Vital Signs 08/15/18 08/15/18 08/15/18 11:45 12:00 12:16 Temperature 98.1 F Pulse Rate 144 H 115 H 107 H Respiratory 20 10 L 10 L Rate Blood Pressure 136/81 124/79 O2 Sat by Pulse 92 97 98 Oximetry 08/15/18 08/15/18 08/15/18 12:31 12:35 12:45 Temperature Pulse Rate 101 H 104 H Respiratory 11 L 20 14 Rate Blood Pressure 124/79 O2 Sat by Pulse 99 98 Oximetry 08/15/18 08/15/18 08/15/18 13:01 13:59 14:01 Temperature Pulse Rate 108 H 109 H 105 H Respiratory 17 15 16 Rate Blood Pressure 124/79 O2 Sat by Pulse 99 97 97 Oximetry 08/15/18 08/15/18 08/15/18 14:15 14:51 14:52 Temperature Pulse Rate 98 H 112 H Respiratory 16 16 Rate Blood Pressure O2 Sat by Pulse 99 Oximetry 08/15/18 08/15/18 08/15/18 15:00 15:15 15:45 Temperature Pulse Rate 112 H 99 H 97 H Respiratory 13 11 L 15 Rate Blood Pressure 118/58 118/58 121/57 O2 Sat by Pulse 93 99 100 Oximetry ED Medical Decision Making - Lab Data Result diagrams: 08/15/18 11:41 08/15/18 11:41 - Radiology Data Radiology results: report reviewed, image reviewed - Medical Decision Making 28 yo female presents to ED with sickle cell crisis. Hemoglobin currently 7.2, with reticulocyte count of 16. Patient initially tachycardic and hypoxic, d- dimer was ordered and found to be elevated. CTA obtained, however negative for PE or any other acute findings. The patient has required several doses of Dilaudid here in the ED for pain control. 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 Requests bridge orders be placed. - Differential Diagnosis pain crisis, severe anemia, pneumonia, PE, pulm edema Critical care attestation.: If time is entered above; I have spent that time in minutes in the direct care of this critically ill patient, excluding procedure time. ED Disposition Clinical Impression: Sickle cell anemia with crisis, Hypoxia Disposition: OP ADMIT IP TO THIS HOSP Is pt being admited?: Yes Condition: Stable Time of Disposition: 15:15
--- NOTE | 2018-08-15 14:45 | Cat Scan Report ---
CTA CHEST: HISTORY: Short of breath. COMPARISON: none. TECHNIQUE: Helical CT in 1.25mm intervals following IV contrast. Pulmonary embolus protocol. Sagittal and coronal reformatted images. Rotational MIP images. FINDINGS: Contrast bolus is satisfactory. No pulmonary embolus is identified. Thyroid gland: Normal. Tracheobronchial tree: Normal. Esophagus: Normal. Heart: Borderline heart size. Pericardium: Normal. Mediastinum: Normal. Lung Jacobs: Normal. Pleural Spaces: Normal. Musculoskeletal: Normal. IMPRESSION: No evidence for pulmonary embolus. Borderline to mild cardiomegaly. Lungs clear.
[2018-08-15 14:46] LABS: Anisocytosis 3+; Band Neutrophils # (Manual) 0.3 K/mm3; Hypochromasia 1+; Sickle Cells 2+; Total Cells Counted 100
[2018-08-15 14:47] LABS: Platelet Estimate Consistent w Auto
[2018-08-15 15:10] LABS: Amphetamine Screen,Urine PRESUMPTIVE NEGATIVE; Benzodiazepines Screen,Urine PRESUMPTIVE NEGATIVE; Cannabinoid Screen,Urine PRESUMPTIVE NEGATIVE; Cocaine Screen,Urine PRESUMPTIVE NEGATIVE; Methadone Screen,Urine PRESUMPTIVE NEGATIVE; Opiate Screen,Urine PRESUMPTIVE NEGATIVE
[2018-08-15 15:24] LABS: Bacteria,Urine 1+ /HPF (Negative); Bilirubin,Urine NEG (Negative); Blood,Urine NEG (Negative); Color,Urine Yellow (Yellow); Mucus,Urine FEW /HPF; Protein,Urine <15 mg/dL mg/dL (Negative); Urobilinogen,Urine < 2.0 mg/dL (<2.0); WBC,Urine < 1.0 /HPF (0.0-6.0)
[2018-08-15] MEDS: BENADRYL IV PRN (18:21)
[2018-08-15] MEDS: ZOFRAN IV PRN (18:21)
[2018-08-15] MEDS: DILAUDID IV PRN ×2 (18:22→22:02)
[2018-08-15] MEDS: D5NS 0.2% 1,000 ML IV SCH ×2 (18:23→22:03)
--- NOTE | 2018-08-15 23:58 | History and Physical Report ---
History of Present Illness Date of examination: 08/15/18 Date of admission: 08/15/18 15:15 Chief complaint: Diffuse joint pain History of present illness: Patient presented to the ER with CC of diffuse joint pain, started at home, and unable to control with her home oral meds. She rated tony at 10/10. She was worked up in the ED, WBC 34,00, HGb 7.2, and is definitely expected to drop further. Patient severe pain crisis permits her to get full admission for better sxs management, and pain control, and treat her leukocytosis.She will be hydrated, get pain management, PRBC replacement, once her HGB less than 7.0 Past History Social history: single, lives with family Medications and Allergies Allergies Allergy/AdvReac Type Severity Reaction Status Date / Time morphine Allergy Unknown Verified 01/24/18 13:20 oxycodone [From Percocet] Allergy Unknown Verified 01/24/18 13:20 vancomycin AdvReac Unknown Verified 01/24/18 13:20 Home Medications Medication Instructions Recorded Confirmed Last Taken Type Folic Acid [Folvite] 1 mg PO DAILY 01/24/18 08/15/18 2 Days Ago History ~01/22/18 10 Hydroxyurea [Hydrea] 1,500 mg PO DAILY 01/24/18 08/15/18 2 Days Ago History ~01/22/18 500 OxyCONTIN ER TAB 10 mg PO Q12H 03/25/18 08/15/18 Unknown History Hydromorphone HCl [Dilaudid] 4 mg PO Q3H PRN 07/08/18 08/15/18 Unknown History Ibuprofen [Ibu] 800 mg PO Q6H 07/08/18 08/15/18 Unknown History Active Meds: Active Medications Diphenhydramine HCl (Benadryl) 25 mg IV Q6H PRN PRN Reason: Itching Last Admin: 08/15/18 18:21 Dose: 25 mg Documented by: Folic Acid (Folvite) 1 mg PO QDAY SONAL Folic Acid (Folvite) 1 mg PO DAILY SONAL Hydromorphone HCl (Dilaudid) 3 mg IV Q3H PRN PRN Reason: Pain , Severe (7-10) Last Admin: 08/15/18 22:02 Dose: 3 mg Documented by: Hydroxyurea (Hydrea) 1,500 mg PO DAILY SONAL Dextrose/Sodium Chloride (D5ns 0.2%) 1,000 mls @ 250 mls/hr IV DIRECT SONAL Last Admin: 08/15/18 22:03 Dose: 250 mls/hr Documented by: Miscellaneous Medication (Oxycontin Er Tab) 10 mg PO Q12H [facility] Ondansetron HCl (Zofran) 4 mg IV Q8H PRN PRN Reason: Nausea Last Admin: 08/15/18 18:21 Dose: 4 mg Documented by: Review of Systems Constitutional: fatigue, weakness, chronic pain Breasts: deferred Cardiovascular: shortness of breath Respiratory: shortness of breath Musculoskeletal: neck pain, low back pain, myalgias Exam - Constitutional Vitals: Temp Pulse Resp BP Pulse Ox 98.2 F 95 H 17 109/60 98 08/15/18 18:55 08/15/18 18:55 08/15/18 22:32 08/15/18 18:55 08/15/18 20:39 General appearance: Present: severe distress, well-nourished - EENT Eyes: Present: PERRL ENT: hearing intact, clear oral mucosa - Neck Neck: Present: supple, normal ROM - Respiratory Respiratory effort: normal Respiratory: bilateral: diminished - Cardiovascular Heart Sounds: Present: S1 & S2. Absent: rub, click - Extremities Extremities: pulses symmetrical, No edema Peripheral Pulses: within normal limits - Abdominal General gastrointestinal: Present: soft, non-tender, non-distended, normal bowel sounds Female genitourinary: Present: deferred - Rectal Rectal Exam: deferred - Integumentary Integumentary: Present: clear, warm, dry - Musculoskeletal Musculoskeletal: gait normal, strength equal bilaterally - Psychiatric Psychiatric: appropriate mood/affect, intact judgment & insight - Neurologic Neurologic: CNII-XII intact, moves all extremities Results - Labs CBC & Chem 7: 08/15/18 11:41 08/15/18 11:41 Labs: Abnormal lab results 08/15/18 08/15/18 08/15/18 Range/Units 11:41 11:41 11:41 WBC 34.0 H (4.5-11.0) K/mm3 RBC 2.08 L (3.65-5.03) M/mm3 Hgb 7.2 L (10.1-14.3) gm/dl Hct 20.7 L (30.3-42.9) % MCV 100 H (79-97) fl MCH 34 H (28-32) pg MCHC 35 H (30-34) % RDW 30.7 H (13.2-15.2) % Seg Neuts % (Manual) 39.0 L (40.0-70.0) % Lymphocytes % (Manual) 53.0 H (13.4-35.0) % Nucleated RBC % 9.0 H (0.0-0.9) % Seg Neutrophils # Man 13.3 H (1.8-7.7) K/mm3 Lymphocytes # (Manual) 18.0 H (1.2-5.4) K/mm3 Monocytes # (Manual) 1.4 H (0.0-0.8) K/mm3 Eosinophils # (Manual) 0.7 H (0.0-0.4) K/mm3 Basophils # (Manual) 0.3 H (0.0-0.1) K/mm3 Percent Retic 17.61 H (0.78-2.58) % D-Dimer 427.31 H (0-234) ng/mlDDU Glucose 102 H (65-100) mg/dL Total Bilirubin (0.1-1.2) mg/dL Direct Bilirubin (0-0.2) mg/dL AST (5-40) units/L /04/25 Range/Units 11:41 WBC (4.5-11.0) K/mm3 RBC (3.65-5.03) M/mm3 Hgb (10.1-14.3) gm/dl Hct (30.3-42.9) % MCV (79-97) fl MCH (28-32) pg MCHC (30-34) % RDW (13.2-15.2) % Seg Neuts % (Manual) (40.0-70.0) % Lymphocytes % (Manual) (13.4-35.0) % Nucleated RBC % (0.0-0.9) % Seg Neutrophils # Man (1.8-7.7) K/mm3 Lymphocytes # (Manual) (1.2-5.4) K/mm3 Monocytes # (Manual) (0.0-0.8) K/mm3 Eosinophils # (Manual) (0.0-0.4) K/mm3 Basophils # (Manual) (0.0-0.1) K/mm3 Percent Retic (0.78-2.58) % D-Dimer (0-234) ng/mlDDU Glucose (65-100) mg/dL Total Bilirubin 2.90 H (0.1-1.2) mg/dL Direct Bilirubin 0.8 H (0-0.2) mg/dL AST 52 H (5-40) units/L Assessment and Plan - Patient Problems (1) Sickle cell anemia with crisis Current Visit: Yes Status: Acute (2) Hypoxia Current Visit: Yes Status: Acute (3) Dehydration Current Visit: No Status: Acute Plan to address problem: hydration. (4) Iron overload due to repeated red blood cell transfusions Current Visit: No Status: Chronic Plan to address problem: check iron level, and treat as needed. (5) Anemia Current Visit: No Status: Acute (6) Sickle cell pain crisis Current Visit: No Status: Acute Plan to address problem: Pain control
[2018-08-16] MEDS: OxyCONTIN PO SCH ×3 (00:23→21:25)
[2018-08-16] MEDS: DILAUDID IV PRN ×7 (01:28→23:44)
[2018-08-16] MEDS: BENADRYL IV PRN ×4 (01:29→23:43)
[2018-08-16] MEDS: D5NS 0.2% 1,000 ML IV SCH ×4 (02:15→16:04)
[2018-08-16] MEDS: ZOFRAN IV PRN (05:11)
[2018-08-16 05:49] LABS: Mean Corpuscular HGB Conc 36 % (30-34); Mean Corpuscular Volume 96 fl (79-97); Platelet Count 227 K/mm3 (140-440); Red Blood Count 1.74 M/mm3 (3.65-5.03)
[2018-08-16 06:13] LABS: Iron 123 ug/dL (37-170)
[2018-08-16 06:14] LABS: Red Cell Distribution Width 28.4 % (13.2-15.2)
[2018-08-16 06:16] LABS: Hematocrit 16.8 % (30.3-42.9)
[2018-08-16 07:01] LABS: Total Iron Binding Capacity 136 mcg/dL (250-450)
[2018-08-16] MEDS ORDERED: NACL 0.9% 500 ML 500 ML IV ONE ×2 (08:06→17:44)
[2018-08-16 08:50] LABS: Band Neutrophils # (Manual) 0.2 K/mm3; Total Cells Counted 100
[2018-08-16 08:54] LABS: Anisocytosis 3+; Hypochromasia 1+; Poikilocytosis 2+; Sickle Cells 2+
[2018-08-16 08:55] LABS: Macrocytosis Few; Platelet Estimate Consistent w Auto; Target Cells 1+
[2018-08-16] MEDS: FOLVITE PO SCH (09:12)
[2018-08-16] MEDS: HYDREA PO SCH (09:12)
[2018-08-16] MEDS ORDERED: XYLOCAINE 1% MPF 5 mL INFILTRATI ONE (09:30)
[2018-08-16] MEDS ORDERED: FOLVITE PO SCH (10:00)
[2018-08-16] MEDS ORDERED: ROCEPHIN IM SCH (10:00)
[2018-08-16] MEDS: ROCEPHIN/NS 1 GM/50 ML 1 GM/50 ML BAG IV SCH (11:15)
[2018-08-16] MEDS: TYLENOL PO PRN ×2 (11:47→18:41)
[2018-08-16] MEDS ORDERED: PROVENTIL IH PRN ×2 (20:30→20:50)
--- NOTE | 2018-08-16 21:39 | Progress Note ---
Assessment and Plan - Patient Problems (1) Sickle cell anemia with crisis Current Visit: Yes Status: Acute Plan to address problem: blood transfusion (2) Hypoxia Current Visit: Yes Status: Acute Plan to address problem: oxygen support. (3) Dehydration Current Visit: No Status: Acute Plan to address problem: hydration. (4) Iron overload due to repeated red blood cell transfusions Current Visit: No Status: Chronic Plan to address problem: check iron level, and treat as needed. (5) Anemia Current Visit: No Status: Acute Plan to address problem: same as above. (6) Sickle cell pain crisis Current Visit: No Status: Acute Plan to address problem: Pain control Subjective Date of service: 08/16/18 Principal diagnosis: SCD/pain crisis/anemia. Interval history: Patient seen/examined, resting in bed, records reviewed, case d/w patient. She had requested breathing tx earlier. Will do a V/Q scan, to see why hypoxia.Will also repeat lab in am. Objective - Constitutional Vitals: Vital Signs - 12hr 08/16/18 08/16/18 08/16/18 10:00 11:07 17:24 Temperature 100.5 F H 98.0 F Pulse Rate 108 H 116 H Pulse Rate [ Bilateral Throughout] Respiratory 16 18 Rate Respiratory Rate [Bilateral Throughout] Blood Pressure 109/65 130/87 O2 Sat by Pulse 96 93 86 Oximetry 08/16/18 08/16/18 08/16/18 18:11 18:26 18:56 Temperature 98.1 F 99 F 99.2 F Pulse Rate 106 H 104 H 98 H Pulse Rate [ Bilateral Throughout] Respiratory 18 18 18 Rate Respiratory Rate [Bilateral Throughout] Blood Pressure 118/65 112/60 114/59 O2 Sat by Pulse 92 97 97 Oximetry 08/16/18 08/16/18 08/16/18 19:39 19:52 20:49 Temperature Pulse Rate Pulse Rate [ 110 H Bilateral Throughout] Respiratory 20 Rate Respiratory 18 Rate [Bilateral Throughout] Blood Pressure O2 Sat by Pulse 97 Oximetry 08/16/18 20:59 Temperature Pulse Rate Pulse Rate [ 106 H Bilateral Throughout] Respiratory Rate Respiratory 18 Rate [Bilateral Throughout] Blood Pressure O2 Sat by Pulse Oximetry General appearance: Present: mild distress, well-nourished - EENT Eyes: PERRL, EOM intact ENT: hearing intact, clear oral mucosa Ears: bilateral: normal - Neck Neck: supple, normal ROM - Respiratory Respiratory effort: normal Respiratory: bilateral: CTA - Breasts Breasts: deferred - Cardiovascular Rhythm: regular Heart Sounds: Present: S1 & S2. Absent: gallop, rub Extremities: pulses intact, No edema, normal color, Full ROM - Gastrointestinal General gastrointestinal: Present: soft, non-tender, non-distended, normal bowel sounds Rectal Exam: deferred - Genitourinary Female genitourinary: deferred - Integumentary Integumentary: clear, warm, dry - Musculoskeletal Musculoskeletal: 1, strength equal bilaterally - Neurologic Neurologic: moves all extremities - Psychiatric Psychiatric: memory intact, appropriate mood/affect, intact judgment & insight - Labs CBC & Chem 7: 08/16/18 05:22 08/15/18 11:41 Labs: Abnormal lab results 08/16/18 08/16/18 08/16/18 Range/Units 05:22 05:22 05:22 WBC 20.6 H (4.5-11.0) K/mm3 RBC 1.74 L (3.65-5.03) M/mm3 Hgb 6.0 L (10.1-14.3) gm/dl Hct 16.8 L* (30.3-42.9) % MCH 34 H (28-32) pg MCHC 36 H (30-34) % RDW 28.4 H (13.2-15.2) % Seg Neuts % (Manual) 33.0 L (40.0-70.0) % Lymphocytes % (Manual) 57.0 H (13.4-35.0) % Nucleated RBC % 10.0 H (0.0-0.9) % Lymphocytes # (Manual) 12.9 H (1.2-5.4) K/mm3 Monocytes # (Manual) 1.1 H (0.0-0.8) K/mm3 Eosinophils # (Manual) 0.7 H (0.0-0.4) K/mm3 Basophils # (Manual) 0.2 H (0.0-0.1) K/mm3 Percent Retic 18.19 H (0.78-2.58) % TIBC 136 L (250-450) mcg/dL Ferritin 2880.0 H (13.0-400.0) ng/mL Crossmatch 08/16/18 Range/Units 08:17 WBC (4.5-11.0) K/mm3 RBC (3.65-5.03) M/mm3 Hgb (10.1-14.3) gm/dl Hct (30.3-42.9) % MCH (28-32) pg MCHC (30-34) % RDW (13.2-15.2) % Seg Neuts % (Manual) (40.0-70.0) % Lymphocytes % (Manual) (13.4-35.0) % Nucleated RBC % (0.0-0.9) % Lymphocytes # (Manual) (1.2-5.4) K/mm3 Monocytes # (Manual) (0.0-0.8) K/mm3 Eosinophils # (Manual) (0.0-0.4) K/mm3 Basophils # (Manual) (0.0-0.1) K/mm3 Percent Retic (0.78-2.58) % TIBC (250-450) mcg/dL Ferritin (13.0-400.0) ng/mL Crossmatch See Detail Medications & Allergies - Medications Allergies/Adverse Reactions: Allergies morphine Allergy (Verified 01/24/18 13:20) Unknown oxycodone [From Percocet] Allergy (Verified 01/24/18 13:20) Unknown vancomycin Adverse Reaction (Verified 01/24/18 13:20) Unknown Home Medications: Home Medications Medication Instructions Recorded Confirmed Last Taken Type Folic Acid [Folvite] 1 mg PO DAILY 01/24/18 08/15/18 2 Days Ago History ~01/22/18 10 Hydroxyurea [Hydrea] 1,500 mg PO DAILY 01/24/18 08/15/18 2 Days Ago History ~01/22/18 500 OxyCONTIN ER TAB 10 mg PO Q12H 03/25/18 08/15/18 Unknown History Hydromorphone HCl [Dilaudid] 4 mg PO Q3H PRN 07/08/18 08/15/18 Unknown History Ibuprofen [Ibu] 800 mg PO Q6H 07/08/18 08/15/18 Unknown History Active Medications: Generic Name Dose Route Start Last Admin Trade Name Freq PRN Reason Stop Dose Admin Acetaminophen 650 mg 08/16/18 11:26 08/16/18 18:41 Tylenol PO 650 mg Q6H PRN Administration Pain, Mild (1-3) Albuterol 2.5 mg 08/16/18 20:50 Proventil IH Q4HRT PRN Shortness Of Breath Diphenhydramine HCl 25 mg 08/15/18 17:49 08/16/18 16:00 Benadryl IV 25 mg Q6H PRN Administration Itching Folic Acid 1 mg 08/16/18 10:00 08/16/18 09:12 Folvite PO 1 mg DAILY SONAL Administration Hydromorphone HCl 3 mg 08/15/18 17:49 08/16/18 20:47 Dilaudid IV 3 mg Q3H PRN Administration Pain , Severe (7-10) Hydroxyurea 1,500 mg 08/16/18 10:00 08/16/18 09:12 Hydrea PO 1,500 mg DAILY SONAL Administration Dextrose/Sodium Chloride 1,000 mls @ 250 mls/hr 08/15/18 18:00 08/16/18 16:04 D5ns 0.2% IV 250 mls/hr DIRECT SONAL Administration Ceftriaxone Sodium 1 gm in 50 mls @ 100 mls/hr 08/16/18 10:00 08/16/18 11:15 Rocephin/Ns 1 Gm/50 Ml IV 100 mls/hr Q24HR SONAL Administration Protocol Sodium Chloride 500 mls @ 50 mls/hr 08/16/18 17:44 Nacl 0.9% 500 Ml IV 08/17/18 03:43 ONCE ONE Ondansetron HCl 4 mg 08/15/18 17:59 08/16/18 05:11 Zofran IV 4 mg Q8H PRN Administration Nausea Oxycodone HCl 10 mg 08/16/18 00:00 08/16/18 21:25 Oxycontin PO 10 mg Q12HR SONAL Administration
[2018-08-17] MEDS ORDERED: BENADRYL IV ONE (01:05)
[2018-08-17] MEDS: DILAUDID IV PRN ×5 (04:10→20:38)
[2018-08-17 06:35] LABS: Hematocrit 24.1 % (30.3-42.9); Hemoglobin 8.7 gm/dl (10.1-14.3)
[2018-08-17] MEDS: BENADRYL IV PRN ×2 (09:07→17:26)
[2018-08-17] MEDS: FOLVITE PO SCH (09:08)
[2018-08-17] MEDS: HYDREA PO SCH (09:08)
[2018-08-17] MEDS: OxyCONTIN PO SCH ×2 (09:08→22:28)
[2018-08-17] MEDS: ROCEPHIN/NS 1 GM/50 ML 1 GM/50 ML BAG IV SCH (09:09)
--- NOTE | 2018-08-17 19:11 | Progress Note ---
Assessment and Plan - Patient Problems (1) Sickle cell anemia with crisis Current Visit: Yes Status: Acute Plan to address problem: blood transfusion (2) Hypoxia Current Visit: Yes Status: Acute Plan to address problem: oxygen support. (3) Dehydration Current Visit: No Status: Acute Plan to address problem: hydration. (4) Iron overload due to repeated red blood cell transfusions Current Visit: No Status: Chronic Plan to address problem: check iron level, and treat as needed. (5) Anemia Current Visit: No Status: Acute (6) Sickle cell pain crisis Current Visit: No Status: Acute Subjective Date of service: 08/17/18 Principal diagnosis: SCD/pain crisis/anemia. Interval history: Patient seen/examined, resting in bed, records reviewed, case d/w patient. She had requested breathing tx earlier. Will do a V/Q scan, to see why hypoxia.Will also repeat lab in am. Patient seen/examined, resting in b ed, labs/records reviewed.Her retic count still high, at 18.1 range. c/o pain at 7/10.will recheck retic count tomorrow, and if trending down, and pain better, will plan d/c home. Objective - Constitutional Vitals: Vital Signs - 12hr 08/17/18 08/17/18 08/17/18 09:06 09:33 10:00 Temperature Pulse Rate Respiratory 20 20 Rate Blood Pressure O2 Sat by Pulse 94 Oximetry 08/17/18 08/17/18 08/17/18 12:39 13:52 17:09 Temperature 100.0 F H 98.6 F Pulse Rate 109 H 115 H Respiratory 16 20 19 Rate Blood Pressure 134/81 131/86 O2 Sat by Pulse 89 91 Oximetry 08/17/18 17:25 Temperature Pulse Rate Respiratory 20 Rate Blood Pressure O2 Sat by Pulse Oximetry General appearance: Present: mild distress, well-nourished - EENT Eyes: PERRL, EOM intact ENT: hearing intact, clear oral mucosa Ears: bilateral: normal - Neck Neck: supple, normal ROM - Respiratory Respiratory effort: normal Respiratory: bilateral: CTA - Breasts Breasts: deferred - Cardiovascular Rhythm: regular Heart Sounds: Present: S1 & S2. Absent: gallop, rub Extremities: pulses intact, No edema, normal color, Full ROM - Gastrointestinal General gastrointestinal: Present: soft, non-tender, non-distended, normal bowel sounds Rectal Exam: deferred - Genitourinary Female genitourinary: deferred - Integumentary Integumentary: clear, warm, dry - Musculoskeletal Musculoskeletal: 1, strength equal bilaterally - Neurologic Neurologic: moves all extremities - Psychiatric Psychiatric: memory intact, appropriate mood/affect, intact judgment & insight - Labs CBC & Chem 7: 08/17/18 06:12 08/15/18 11:41 Labs: Abnormal lab results 08/16/18 08/17/18 Range/Units 08:17 06:12 Hgb 8.7 L (10.1-14.3) gm/dl Hct 24.1 L D (30.3-42.9) % Crossmatch See Detail Medications & Allergies - Medications Allergies/Adverse Reactions: Allergies morphine Allergy (Verified 01/24/18 13:20) Unknown oxycodone [From Percocet] Allergy (Verified 01/24/18 13:20) Unknown vancomycin Adverse Reaction (Verified 01/24/18 13:20) Unknown Home Medications: Home Medications Medication Instructions Recorded Confirmed Last Taken Type Folic Acid [Folvite] 1 mg PO DAILY 01/24/18 08/15/18 2 Days Ago History ~01/22/18 10 Hydroxyurea [Hydrea] 1,500 mg PO DAILY 01/24/18 08/15/18 2 Days Ago History ~01/22/18 500 OxyCONTIN ER TAB 10 mg PO Q12H 03/25/18 08/15/18 Unknown History Hydromorphone HCl [Dilaudid] 4 mg PO Q3H PRN 07/08/18 08/15/18 Unknown History Ibuprofen [Ibu] 800 mg PO Q6H 07/08/18 08/15/18 Unknown History Active Medications: Generic Name Dose Route Start Last Admin Trade Name Freq PRN Reason Stop Dose Admin Acetaminophen 650 mg 08/16/18 11:26 08/16/18 18:41 Tylenol PO 650 mg Q6H PRN Administration Pain, Mild (1-3) Albuterol 2.5 mg 08/16/18 20:50 Proventil IH Q4HRT PRN Shortness Of Breath Diphenhydramine HCl 25 mg 08/15/18 17:49 08/17/18 17:26 Benadryl IV 25 mg Q6H PRN Administration Itching Folic Acid 1 mg 08/16/18 10:00 08/17/18 09:08 Folvite PO 1 mg DAILY SONAL Administration Hydromorphone HCl 3 mg 08/15/18 17:49 08/17/18 17:25 Dilaudid IV 3 mg Q3H PRN Administration Pain , Severe (7-10) Hydroxyurea 1,500 mg 08/16/18 10:00 08/17/18 09:08 Hydrea PO 1,500 mg DAILY SONAL Administration Dextrose/Sodium Chloride 1,000 mls @ 250 mls/hr 08/15/18 18:00 08/16/18 20:30 D5ns 0.2% IV Infused DIRECT SONAL Infusion Ceftriaxone Sodium 1 gm in 50 mls @ 100 mls/hr 08/16/18 10:00 08/17/18 09:09 Rocephin/Ns 1 Gm/50 Ml IV 100 mls/hr Q24HR SONAL Administration Protocol Ondansetron HCl 4 mg 08/15/18 17:59 08/16/18 05:11 Zofran IV 4 mg Q8H PRN Administration Nausea Oxycodone HCl 10 mg 08/16/18 00:00 08/17/18 09:08 Oxycontin PO 10 mg Q12HR SONAL Administration
[2018-08-17] MEDS ORDERED: MIRALAX 3350 PO PRN (19:50)
[2018-08-17] MEDS: D5NS 0.2% 1,000 ML IV SCH (20:37)
[2018-08-18] MEDS: DILAUDID IV PRN ×6 (00:11→21:56)
[2018-08-18] MEDS: BENADRYL IV PRN ×3 (00:11→18:11)
[2018-08-18] MEDS: D5NS 0.2% 1,000 ML IV SCH ×6 (00:18→22:01)
[2018-08-18] MEDS: FOLVITE PO SCH (09:31)
[2018-08-18] MEDS: ROCEPHIN/NS 1 GM/50 ML 1 GM/50 ML BAG IV SCH (09:31)
[2018-08-18] MEDS: OxyCONTIN PO SCH ×2 (09:31→21:56)
[2018-08-18] MEDS: HYDREA PO SCH (09:32)
[2018-08-18] MEDS: ZOFRAN IV PRN ×2 (10:17→18:11)
[2018-08-18] MEDS: NACL 0.9% IV SCH (10:18)
[2018-08-18] MEDS: [UNRECOGNIZED DRUG - OTHER] IV SCH (10:18)
--- NOTE | 2018-08-18 19:22 | Progress Note ---
Assessment and Plan - Patient Problems (1) Sickle cell anemia with crisis Current Visit: Yes Status: Acute Plan to address problem: blood transfusion (2) Hypoxia Current Visit: Yes Status: Acute Plan to address problem: oxygen support. (3) Dehydration Current Visit: No Status: Acute Plan to address problem: hydration. (4) Iron overload due to repeated red blood cell transfusions Current Visit: No Status: Chronic Plan to address problem: check iron level, and treat as needed. (5) Anemia Current Visit: No Status: Acute Plan to address problem: same as above. (6) Sickle cell pain crisis Current Visit: No Status: Acute Plan to address problem: Pain control Subjective Date of service: 08/18/18 Principal diagnosis: SCD/pain crisis/anemia. Interval history: Patient seen/examined, resting in bed, records reviewed, case d/w patient. She had requested breathing tx earlier. Will do a V/Q scan, to see why hypoxia.Will also repeat lab in am. Patient seen/examined, resting in b ed, labs/records reviewed.Her retic count still high, at 18.1 range. c/o pain at 7/10.will recheck retic count tomorrow, and if trending down, and pain better, will plan d/c home. Patient seen/examined, resting in bed, labs reviewed, case d/w patient. the last Desf will finish tomorrow, and D/C home. Objective - Constitutional Vitals: Vital Signs - 12hr 08/18/18 08/18/18 12:26 17:20 Temperature 98.5 F 98.9 F Pulse Rate 101 H 103 H Respiratory 18 18 Rate Blood Pressure 103/55 123/78 O2 Sat by Pulse 93 93 Oximetry General appearance: Present: mild distress, well-nourished - EENT Eyes: PERRL, EOM intact ENT: hearing intact, clear oral mucosa Ears: bilateral: normal - Neck Neck: supple, normal ROM - Respiratory Respiratory effort: normal Respiratory: bilateral: CTA - Breasts Breasts: deferred - Cardiovascular Rhythm: regular Heart Sounds: Present: S1 & S2. Absent: gallop, rub Extremities: pulses intact, No edema, normal color, Full ROM - Gastrointestinal General gastrointestinal: Present: soft, non-tender, non-distended, normal bowel sounds Rectal Exam: deferred - Genitourinary Female genitourinary: deferred - Integumentary Integumentary: clear, warm, dry - Musculoskeletal Musculoskeletal: 1, strength equal bilaterally - Neurologic Neurologic: moves all extremities - Psychiatric Psychiatric: memory intact, appropriate mood/affect, intact judgment & insight - Labs CBC & Chem 7: 08/17/18 06:12 08/15/18 11:41 Labs: Abnormal lab results 08/18/18 Range/Units 05:30 Percent Retic 23.40 H (0.78-2.58) % Medications & Allergies - Medications Allergies/Adverse Reactions: Allergies morphine Allergy (Verified 01/24/18 13:20) Unknown oxycodone [From Percocet] Allergy (Verified 01/24/18 13:20) Unknown vancomycin Adverse Reaction (Verified 01/24/18 13:20) Unknown Home Medications: Home Medications Medication Instructions Recorded Confirmed Last Taken Type Folic Acid [Folvite] 1 mg PO DAILY 01/24/18 08/15/18 2 Days Ago History ~01/22/18 10 Hydroxyurea [Hydrea] 1,500 mg PO DAILY 01/24/18 08/15/18 2 Days Ago History ~01/22/18 500 OxyCONTIN ER TAB 10 mg PO Q12H 03/25/18 08/15/18 Unknown History Hydromorphone HCl [Dilaudid] 4 mg PO Q3H PRN 07/08/18 08/15/18 Unknown History Ibuprofen [Ibu] 800 mg PO Q6H 07/08/18 08/15/18 Unknown History Active Medications: Generic Name Dose Route Start Last Admin Trade Name Freq PRN Reason Stop Dose Admin Acetaminophen 650 mg 08/16/18 11:26 08/16/18 18:41 Tylenol PO 650 mg Q6H PRN Administration Pain, Mild (1-3) Albuterol 2.5 mg 08/16/18 20:50 Proventil IH Q4HRT PRN Shortness Of Breath Diphenhydramine HCl 25 mg 08/15/18 17:49 08/18/18 18:11 Benadryl IV 25 mg Q6H PRN Administration Itching Folic Acid 1 mg 08/16/18 10:00 08/18/18 09:31 Folvite PO 1 mg DAILY SONAL Administration Hydromorphone HCl 3 mg 08/15/18 17:49 08/18/18 18:11 Dilaudid IV 3 mg Q3H PRN Administration Pain , Severe (7-10) Hydroxyurea 1,500 mg 08/16/18 10:00 08/18/18 09:32 Hydrea PO 1,500 mg DAILY SONAL Administration Dextrose/Sodium Chloride 1,000 mls @ 250 mls/hr 08/15/18 18:00 08/18/18 18:16 D5ns 0.2% IV 250 mls/hr DIRECT SONAL Administration Ceftriaxone Sodium 1 gm in 50 mls @ 100 mls/hr 08/16/18 10:00 08/18/18 09:31 Rocephin/Ns 1 Gm/50 Ml IV 100 mls/hr Q24HR SONAL Administration Protocol Deferoxamine Mesylate 3,950 mg 250 mls @ 32 mls/hr 08/18/18 10:00 08/18/18 10:18 / Sodium Chloride IV 32 mls/hr Q24HR SONAL Administration Ondansetron HCl 4 mg 08/15/18 17:59 08/18/18 18:11 Zofran IV 4 mg Q8H PRN Administration Nausea Oxycodone HCl 10 mg 08/16/18 00:00 08/18/18 09:31 Oxycontin PO 10 mg Q12HR SONAL Administration Polyethylene Glycol 17 gm 08/17/18 19:50 Miralax 3350 PO BID PRN Constipation
[2018-08-19] MEDS: DILAUDID IV PRN ×5 (00:58→18:00)
[2018-08-19] MEDS: BENADRYL IV PRN ×3 (00:59→18:00)
[2018-08-19] MEDS: D5NS 0.2% 1,000 ML IV SCH ×4 (02:31→15:40)
[2018-08-19] MEDS: ROCEPHIN/NS 1 GM/50 ML 1 GM/50 ML BAG IV SCH (09:52)
[2018-08-19] MEDS: NACL 0.9% IV SCH (09:52)
[2018-08-19] MEDS: ZOFRAN IV PRN ×2 (09:52→18:00)
[2018-08-19] MEDS: [UNRECOGNIZED DRUG - OTHER] IV SCH (09:52)
[2018-08-19] MEDS: OxyCONTIN PO SCH (09:53)
[2018-08-19] MEDS: HYDREA PO SCH (09:53)
[2018-08-19] MEDS: FOLVITE PO SCH (09:53)
[2018-08-19 17:53] VITALS: BP 111/59
--- NOTE | 2018-08-19 19:20 | Discharge Summary ---
Providers - Providers Date of Admission: 08/15/18 15:15 Date of discharge: 08/19/18 Attending physician: CAM PASRON Primary care physician: CAM PARSON Hospitalization Reason for admission: SCDPain crisis/anemia. Condition: Stable Hospital course: Patient presented to the ER with diffuse pain in all the joints, admitted with Pain crisis, sepsis syndrome. She was treated with IVF, pain control, and was transfused with 2uPRBC, followed by iron chelation for chronic iron overload.She also was given IV ABX, for WBC of 30+,000.She is seen/examined, no ACD, labs reviewed, case d/w patient, .She will be D/C home today. Disposition: DC- TO HOME OR SELFCARE - Discharge Diagnoses (1) Sickle cell anemia with crisis Status: Chronic (2) Hypoxia Status: Resolved (3) Dehydration Status: Resolved (4) Iron overload due to repeated red blood cell transfusions Status: Chronic (5) Anemia Status: Chronic (6) Sickle cell pain crisis Status: Resolved Core Measure Documentation - Palliative Care Palliative Care/ Comfort Measures: Not Applicable - Core Measures Any of the following diagnoses?: none Exam - Constitutional Vitals: Temp Pulse Resp BP Pulse Ox 98.8 F 91 H 18 111/59 100 08/19/18 16:56 08/19/18 16:56 08/19/18 16:56 08/19/18 16:56 08/19/18 16:56 General appearance: Present: no acute distress, well-nourished - EENT Eyes: Present: PERRL ENT: hearing intact, clear oral mucosa - Neck Neck: Present: supple, normal ROM - Respiratory Respiratory effort: normal Respiratory: bilateral: CTA - Cardiovascular Heart Sounds: Present: S1 & S2. Absent: rub, click - Extremities Extremities: pulses symmetrical, No edema Peripheral Pulses: within normal limits - Abdominal General gastrointestinal: Present: soft, non-tender, non-distended, normal bowel sounds Female genitourinary: Present: deferred - Rectal Rectal Exam: deferred - Integumentary Integumentary: Present: clear, warm, dry - Musculoskeletal Musculoskeletal: gait normal, strength equal bilaterally - Psychiatric Psychiatric: appropriate mood/affect, intact judgment & insight - Neurologic Neurologic: CNII-XII intact, moves all extremities Plan Activity: no restrictions Diet: regular Follow up with: PRIMARY CARE, [Referring] - 3-5 Days
[2018-08-19] MEDS ORDERED: FLUSH HEPARIN IV ONE (19:48)
== END 2018-08-19 21:39 | disposition home or self-care (01) | DRG 871 ==
LOC: ED 11:27 → 3A 15:15
PROVIDERS: ADMIT Internal Medicine Hematology & Oncology; ATTEND Internal Medicine Hematology & Oncology
PROC: 30233N1 Transfusion of Nonautologous Red Blood Cells into Peripheral Vein, Percutaneous Approach (ICD-10-PCS; principal; 2018-08-16)
DX: A41.9 Sepsis, unspecified organism (principal); D57.00 Hb-SS disease with crisis, unspecified; R09.02 Hypoxemia; E83.111 Hemochromatosis due to repeated red blood cell transfusions; E86.0 Dehydration; Z88.5 Allergy status to narcotic agent; Z88.1 Allergy status to other antibiotic agents; Z79.899 Other long term (current) drug therapy; Z90.49 Acquired absence of other specified parts of digestive tract
CPT/HCPCS: 36415; 71045; 71275; 80048; 80076; 80307; 81001; 82728; 83550; 84484; 84703; 85007; 85014; 85018; 85025; 85045; 85379; 85610; 85660; 85730; 86850; 86870; 86900; 86901; 86922; 87040; 87116; 93005; 93010; 94640; 94760; 96374; 96375; 99285; G0378; J0696; J0895; J1170; J1200; J1642; J1885; J2405; J7030; J7040; J7050; P9016; Q9967

== ENCOUNTER 2018-09-09 08:25 | Inpatient (IN) | payer MEDICAID ==
[2018-09-09] MEDS ORDERED: BENADRYL IV ONE (09:17)
[2018-09-09] MEDS ORDERED: DILAUDID IV ONE ×3 (09:17→10:53)
[2018-09-09] MEDS ORDERED: TORADOL IV ONE (09:17)
[2018-09-09] MEDS ORDERED: ZOFRAN IV ONE (09:17)
--- NOTE | 2018-09-09 09:23 | Emergency Department Report ---
ED General Adult HPI - General Chief complaint: Chest Pain Stated complaint: SICKLE CELL CRSIS Time Seen by Provider: 09/09/18 09:11 Source: patient Mode of arrival: Ambulatory Limitations: No Limitations - History of Present Illness Initial comments: Cinthya Patterson is a very pleasant 28 yo female with hx of Hgb SS disease who presents with 2 weeks of sharp chest pain. Ruled out for acute chest syndrome with chest x-ray at [facility] recently. Has used home oxygen as needed with analgesia. No relief. Persistent severe chest pain without shortness of breath. Denies abdominal pain or fever. Denies extremity pain. LMP this week. Has port in right chest. PCP Dr. Robins -: Gradual, week(s) (2) Location: chest Severity scale (0 -10): 8 Quality: sharp Consistency: constant Worsens with: none Associated Symptoms: denies other symptoms - Related Data Home Medications Medication Instructions Recorded Confirmed Last Taken Folic Acid [Folvite] 1 mg PO DAILY 01/24/18 08/15/18 2 Days Ago ~01/22/18 10 Hydroxyurea [Hydrea] 1,500 mg PO DAILY 01/24/18 08/15/18 2 Days Ago ~01/22/18 500 OxyCONTIN ER TAB 10 mg PO Q12H 03/25/18 08/15/18 Unknown Hydromorphone HCl [Dilaudid] 4 mg PO Q3H PRN 07/08/18 08/15/18 Unknown Ibuprofen [Ibu] 800 mg PO Q6H 07/08/18 08/15/18 Unknown Allergies Allergy/AdvReac Type Severity Reaction Status Date / Time morphine Allergy Unknown Verified 09/09/18 08:47 oxycodone [From Percocet] Allergy Unknown Verified 09/09/18 08:47 vancomycin AdvReac Unknown Verified 09/09/18 08:47 ED Review of Systems ROS: Stated complaint: SICKLE CELL CRSIS Other details as noted in HPI Comment: All other systems reviewed and negative Constitutional: denies: fever, malaise Respiratory: denies: cough, shortness of breath Cardiovascular: chest pain Gastrointestinal: denies: abdominal pain ED Past Medical Hx - Past Medical History Previous Medical History?: Yes Hx Congestive Heart Failure: No Hx Diabetes: No Hx Sickle Cell Disease: Yes Hx Asthma: No Hx COPD: No - Surgical History Hx Appendectomy: Yes - Social History Smoking Status: Never Smoker Substance Use Type: None Other Social History: mother is a family practice physician, 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 - Medications Home Medications: Home Medications Medication Instructions Recorded Confirmed Last Taken Type Folic Acid [Folvite] 1 mg PO DAILY 01/24/18 08/15/18 2 Days Ago History ~01/22/18 10 Hydroxyurea [Hydrea] 1,500 mg PO DAILY 01/24/18 08/15/18 2 Days Ago History ~01/22/18 500 OxyCONTIN ER TAB 10 mg PO Q12H 03/25/18 08/15/18 Unknown History Hydromorphone HCl [Dilaudid] 4 mg PO Q3H PRN 07/08/18 08/15/18 Unknown History Ibuprofen [Ibu] 800 mg PO Q6H 07/08/18 08/15/18 Unknown History ED Physical Exam - General Limitations: No Limitations General appearance: alert, in no apparent distress - Head Head exam: Present: atraumatic, normocephalic - Eye Eye exam: Present: normal appearance - ENT ENT exam: Present: mucous membranes moist - Neck Neck exam: Present: normal inspection, full ROM - Respiratory Respiratory exam: Present: normal lung sounds bilaterally. Absent: respiratory distress, wheezes, rales, rhonchi - Cardiovascular Cardiovascular Exam: Present: regular rate, normal rhythm, normal heart sounds. Absent: systolic murmur, diastolic murmur, rubs, gallop - GI/Abdominal GI/Abdominal exam: Present: soft, normal bowel sounds. Absent: distended, tenderness, guarding, rebound - Extremities Exam Extremities exam: Present: normal inspection - Back Exam Back exam: Present: normal inspection - Neurological Exam Neurological exam: Present: alert, oriented X3 - Psychiatric Psychiatric exam: Present: normal affect, normal mood - Skin Skin exam: Present: warm, dry, intact, normal color. Absent: rash ED Course Vital Signs 09/09/18 08:47 Temperature 97.8 F Pulse Rate 90 Respiratory 18 Rate Blood Pressure 127/62 O2 Sat by Pulse 96 Oximetry ED Medical Decision Making - Lab Data Result diagrams: 09/09/18 09:20 09/09/18 09:20 - EKG Data -: EKG Interpreted by Me EKG shows normal: sinus rhythm, axis, intervals, QRS complexes, ST-T waves Rate: normal - EKG Data Interpretation: no acute changes, normal EKG - Medical Decision Making Cinthya presents with sickle cell crisis and chest pain. No indication of pneumonia, pericarditis, PE. Consideration: acute chest syndrome, Labs reviewed, Dr. Robins will admit Critical care attestation.: If time is entered above; I have spent that time in minutes in the direct care of this critically ill patient, excluding procedure time. ED Disposition Clinical Impression: Sickle cell anemia with crisis, Chest pain Disposition: OP ADMIT IP TO THIS HOSP Is pt being admited?: Yes Does the pt Need Aspirin: No Condition: Stable Instructions: Chest Pain (ED)
[2018-09-09 09:45] LABS: Hematocrit 20.2 % (30.3-42.9); Hemoglobin 7.2 gm/dl (10.1-14.3); Mean Corpuscular HGB Conc 36 % (30-34); Mean Corpuscular Volume 90 fl (79-97); Platelet Count 331 K/mm3 (140-440); Red Blood Count 2.23 M/mm3 (3.65-5.03)
[2018-09-09 09:48] LABS: Hemolysis Index 0
[2018-09-09 09:49] LABS: Red Cell Distribution Width 22.3 % (13.2-15.2)
[2018-09-09] MEDS ORDERED: ZOFRAN IV PRN (10:22)
[2018-09-09 10:23] LABS: Basophils % (Manual) 0 % (0.0-1.8); Total Cells Counted 100
[2018-09-09 10:24] LABS: Anisocytosis 2+; Large Platelets Few; Platelet Estimate Consistent w Auto; Poikilocytosis 2+; Sickle Cells 2+; Target Cells Few
[2018-09-09] MEDS: D5NS 0.2% 1,000 ML IV SCH ×3 (10:30→22:03)
[2018-09-09 10:36] LABS: BUN/Creatinine Ratio 19; Blood Urea Nitrogen 13 mg/dL (7-17); Calcium 8.6 mg/dL (8.4-10.2)
[2018-09-09] MEDS ORDERED: DILAUDID ONE (10:56)
[2018-09-09] MEDS: DILAUDID IV PRN ×3 (14:11→22:36)
[2018-09-09] MEDS: BENADRYL IV PRN (17:48)
--- NOTE | 2018-09-09 17:56 | History and Physical Report ---
History of Present Illness Date of examination: 09/09/18 Date of admission: 09/09/18 10:20 Chief complaint: Diffuse joint pain. History of present illness: Patient presents to the Er with diffuse joint pain, not getting better at home, hence to Er. W/Up revealed anemia, elevated WBC, and retic count.. she was admitted, for better management, and sxs control.She has chronic iron overload.She will be hydrated, pain control, and w/up leukocytosis.She may be treated with abx,if indicated. Past History Past Medical History: anemia Social history: no significant social history, lives with family Family history: no significant family history Medications and Allergies Allergies Allergy/AdvReac Type Severity Reaction Status Date / Time morphine Allergy Unknown Verified 09/09/18 08:47 oxycodone [From Percocet] Allergy Unknown Verified 09/09/18 08:47 vancomycin AdvReac Unknown Verified 09/09/18 08:47 Home Medications Medication Instructions Recorded Confirmed Last Taken Type Folic Acid [Folvite] 1 mg PO DAILY 01/24/18 09/09/18 2 Days Ago History ~01/22/18 10 Hydroxyurea [Hydrea] 1,500 mg PO DAILY 01/24/18 09/09/18 2 Days Ago History ~01/22/18 500 OxyCONTIN ER TAB 10 mg PO Q12H 03/25/18 09/09/18 Unknown History Hydromorphone HCl [Dilaudid] 4 mg PO Q3H PRN 07/08/18 09/09/18 Unknown History Ibuprofen [Ibu] 800 mg PO Q6H 07/08/18 09/09/18 Unknown History Active Meds: Active Medications Diphenhydramine HCl (Benadryl) 25 mg IV Q6H PRN PRN Reason: Itching Hydromorphone HCl (Dilaudid) 1 mg IV Q2H PRN PRN Reason: Pain , Severe (7-10) Last Admin: 09/09/18 14:11 Dose: 1 mg Documented by: Dextrose/Sodium Chloride (D5ns 0.2%) 1,000 mls @ 250 mls/hr IV DIRECT SONAL Last Admin: 09/09/18 14:12 Dose: 250 mls/hr Documented by: Ondansetron HCl (Zofran) 4 mg IV Q6H PRN PRN Reason: Nausea Review of Systems Constitutional: chronic pain Breasts: deferred Exam - Constitutional Vitals: Temp Pulse Resp BP Pulse Ox 98.9 F 103 H 18 123/68 91 09/09/18 17:25 09/09/18 17:25 09/09/18 17:25 09/09/18 17:25 09/09/18 17:25 General appearance: Present: mild distress, well-nourished - EENT Eyes: Present: PERRL ENT: hearing intact, clear oral mucosa - Neck Neck: Present: supple, normal ROM - Respiratory Respiratory effort: normal Respiratory: bilateral: CTA - Cardiovascular Heart Sounds: Present: S1 & S2. Absent: rub, click - Extremities Extremities: pulses symmetrical, No edema Peripheral Pulses: within normal limits - Abdominal General gastrointestinal: Present: soft, non-tender, non-distended, normal bowel sounds Female genitourinary: Present: deferred - Rectal Rectal Exam: deferred - Integumentary Integumentary: Present: clear, warm, dry - Musculoskeletal Musculoskeletal: gait normal, strength equal bilaterally - Psychiatric Psychiatric: appropriate mood/affect, intact judgment & insight - Neurologic Neurologic: CNII-XII intact, moves all extremities Results - Labs CBC & Chem 7: 09/09/18 09:20 09/09/18 09:20 Labs: Abnormal lab results 09/09/18 09/09/18 Range/Units 09:20 09:20 WBC 19.6 H (4.5-11.0) K/mm3 RBC 2.23 L (3.65-5.03) M/mm3 Hgb 7.2 L (10.1-14.3) gm/dl Hct 20.2 L (30.3-42.9) % MCHC 36 H (30-34) % RDW 22.3 H (13.2-15.2) % Lymphocytes % (Manual) 47.0 H (13.4-35.0) % Monocytes % (Manual) 8.0 H (0.0-7.3) % Nucleated RBC % 2.0 H (0.0-0.9) % Seg Neutrophils # Man 8.4 H (1.8-7.7) K/mm3 Lymphocytes # (Manual) 9.2 H (1.2-5.4) K/mm3 Monocytes # (Manual) 1.6 H (0.0-0.8) K/mm3 Percent Retic 18.02 H (0.78-2.58) % Chloride 60.0 L (98-107) mmol/L Creatinine < 0.2 L (0.7-1.2) mg/dL Assessment and Plan - Patient Problems (1) Chest pain Current Visit: Yes Status: Acute (2) Sickle cell anemia with crisis Current Visit: Yes Status: Chronic Plan to address problem: pain control. (3) Anemia Current Visit: No Status: Chronic Plan to address problem: replacement ,if needed. (4) Iron overload due to repeated red blood cell transfusions Current Visit: No Status: Chronic Plan to address problem: monitor, may chelate. (5) Dehydration Current Visit: No Status: Resolved Plan to address problem: hydration. (6) Leukocytosis Current Visit: No Status: Resolved Plan to address problem: see w/up labs.
[2018-09-09] MEDS ORDERED: OXYCONTIN 10 MG PO SCH (18:00)
[2018-09-09] MEDS ORDERED: DILAUDID IM PRN (18:02)
[2018-09-09] MEDS ORDERED: XYLOCAINE 1% MPF 5 mL INFILTRATI ONE (18:06)
[2018-09-09] MEDS ORDERED: PERCOCET 5/325 PO PRN (20:50)
[2018-09-09] MEDS: OxyCONTIN PO SCH (22:03)
[2018-09-09] MEDS: HEPARIN SUB-Q SCH (22:06)
[2018-09-10] MEDS: BENADRYL IV PRN ×4 (02:10→23:47)
[2018-09-10] MEDS: DILAUDID IV PRN ×7 (02:11→23:43)
[2018-09-10] MEDS: D5NS 0.2% 1,000 ML IV SCH ×4 (02:18→17:18)
[2018-09-10 06:17] LABS: Hemoglobin 6.3 gm/dl (10.1-14.3); Mean Corpuscular HGB Conc 36 % (30-34); Mean Corpuscular Volume 89 fl (79-97); Platelet Count 289 K/mm3 (140-440)
[2018-09-10 06:28] LABS: Hematocrit 17.7 % (30.3-42.9); Red Cell Distribution Width 21.9 % (13.2-15.2)
[2018-09-10] MEDS ORDERED: NACL 0.9% 500 ML 500 ML IV ONE ×2 (07:00→23:10)
[2018-09-10] MEDS: TYLENOL PO PRN ×2 (09:17→23:23)
[2018-09-10] MEDS ORDERED: ROCEPHIN IM SCH (10:00)
[2018-09-10] MEDS ORDERED: HYDREA PO SCH (10:00)
[2018-09-10] MEDS: ROCEPHIN/NS 1 GM/50 ML 1 GM/50 ML BAG IV SCH (13:10)
[2018-09-10] MEDS: FOLVITE PO SCH (13:11)
[2018-09-10] MEDS: HEPARIN SUB-Q SCH ×2 (14:04→23:13)
[2018-09-10] MEDS: OxyCONTIN PO SCH ×2 (14:04→23:13)
[2018-09-10 15:37] LABS: Basophils % (Manual) 0 % (0.0-1.8); Total Cells Counted 100
[2018-09-10 15:38] LABS: Anisocytosis 1+; Platelet Estimate Consistent w Auto; Sickle Cells 2+
[2018-09-10 15:40] LABS: Target Cells Rare
--- NOTE | 2018-09-10 16:45 | Progress Note ---
Assessment and Plan - Patient Problems (1) Chest pain Current Visit: Yes Status: Acute Plan to address problem: better. (2) Sickle cell anemia with crisis Current Visit: Yes Status: Chronic Plan to address problem: pain control. (3) Anemia Current Visit: No Status: Chronic Plan to address problem: replacement ,if needed. awaiting Blood. (4) Iron overload due to repeated red blood cell transfusions Current Visit: No Status: Chronic Plan to address problem: monitor, may chelate. will start today. (5) Dehydration Current Visit: No Status: Resolved Plan to address problem: hydration. (6) Leukocytosis Current Visit: No Status: Resolved Plan to address problem: see w/up labs. Subjective Date of service: 09/10/18 Principal diagnosis: Sickle pain crisis. Interval history: Patient seen/examined, resting in bed, records reviewed, case d/w her. Hgb 6.2, and awaiting PRBC. Iron, elevated, and will start on DESFEROLWill also start on appetite enhancement. Objective - Constitutional Vitals: Vital Signs - 12hr 09/10/18 09/10/18 09/10/18 05:46 10:00 10:12 Temperature 99.5 F Pulse Rate 103 H Respiratory 16 20 Rate Blood Pressure 109/57 O2 Sat by Pulse 92 99 Oximetry 09/10/18 09/10/18 12:02 13:40 Temperature 98.9 F Pulse Rate 89 Respiratory 16 20 Rate Blood Pressure 101/49 O2 Sat by Pulse 90 Oximetry General appearance: Present: mild distress, well-nourished - EENT Eyes: PERRL, EOM intact ENT: hearing intact, clear oral mucosa Ears: bilateral: normal - Neck Neck: supple, normal ROM - Respiratory Respiratory effort: normal Respiratory: bilateral: CTA - Breasts Breasts: deferred - Cardiovascular Rhythm: regular Heart Sounds: Present: S1 & S2. Absent: gallop, rub Extremities: pulses intact, No edema, normal color, Full ROM - Gastrointestinal General gastrointestinal: Present: soft, non-tender, non-distended, normal bowel sounds Rectal Exam: deferred - Genitourinary Female genitourinary: deferred - Integumentary Integumentary: clear, warm, dry - Musculoskeletal Musculoskeletal: 1, strength equal bilaterally - Neurologic Neurologic: moves all extremities - Psychiatric Psychiatric: memory intact, appropriate mood/affect, intact judgment & insight - Labs CBC & Chem 7: 09/10/18 05:30 09/09/18 09:20 Labs: Abnormal lab results 09/09/18 09/10/18 09/10/18 Range/Units 18:41 05:30 08:50 WBC 18.9 H (4.5-11.0) K/mm3 RBC 2.00 L (3.65-5.03) M/mm3 Hgb 6.3 L (10.1-14.3) gm/dl Hct 17.7 L* (30.3-42.9) % MCHC 36 H (30-34) % RDW 21.9 H (13.2-15.2) % Lymphocytes % (Manual) 49.0 H (13.4-35.0) % Nucleated RBC % 2.0 H (0.0-0.9) % Seg Neutrophils # Man 8.7 H (1.8-7.7) K/mm3 Lymphocytes # (Manual) 9.3 H (1.2-5.4) K/mm3 Eosinophils # (Manual) 0.6 H (0.0-0.4) K/mm3 Percent Retic 17.75 H (0.78-2.58) % Ferritin 3740.0 H (13.0-400.0) ng/mL Crossmatch See Detail Medications & Allergies - Medications Allergies/Adverse Reactions: Allergies morphine Allergy (Verified 09/09/18 08:47) Unknown oxycodone [From Percocet] Allergy (Verified 09/09/18 08:47) Unknown vancomycin Adverse Reaction (Verified 09/09/18 08:47) Unknown Home Medications: Home Medications Medication Instructions Recorded Confirmed Last Taken Type Folic Acid [Folvite] 1 mg PO DAILY 01/24/18 09/09/18 2 Days Ago History ~01/22/18 10 Hydroxyurea [Hydrea] 1,500 mg PO DAILY 01/24/18 09/09/18 2 Days Ago History ~01/22/18 500 OxyCONTIN ER TAB 10 mg PO Q12H 03/25/18 09/09/18 Unknown History Hydromorphone HCl [Dilaudid] 4 mg PO Q3H PRN 07/08/18 09/09/18 Unknown History Ibuprofen [Ibu] 800 mg PO Q6H 07/08/18 09/09/18 Unknown History Active Medications: Generic Name Dose Route Start Last Admin Trade Name Freq PRN Reason Stop Dose Admin Acetaminophen 650 mg 09/10/18 09:04 09/10/18 09:17 Tylenol PO 650 mg Q6H PRN Administration Pain, Mild (1-3) Diphenhydramine HCl 25 mg 09/09/18 10:22 09/10/18 09:41 Benadryl IV 25 mg Q6H PRN Administration Itching Folic Acid 1 mg 09/10/18 10:00 09/10/18 13:11 Folvite PO 1 mg DAILY SONAL Administration Heparin Sodium (Porcine) 5,000 unit 09/09/18 22:00 09/10/18 14:04 Heparin SUB-Q 5,000 unit Q12HR SONAL Administration Hydromorphone HCl 2 mg 09/09/18 21:20 09/10/18 13:10 Dilaudid IV 2 mg Q3H PRN Administration Pain , Severe (7-10) Hydroxyurea 1,500 mg 09/10/18 10:00 09/10/18 13:11 Hydrea PO 1,500 mg DAILY SONAL Administration Dextrose/Sodium Chloride 1,000 mls @ 250 mls/hr 09/09/18 19:00 09/10/18 12:52 D5ns 0.2% IV 250 mls/hr DIRECT SONAL Administration Ceftriaxone Sodium 1 gm in 50 mls @ 100 mls/hr 09/10/18 10:00 09/10/18 13:10 Rocephin/Ns 1 Gm/50 Ml IV 100 mls/hr Q24HR SONAL Administration Ondansetron HCl 4 mg 09/09/18 10:22 Zofran IV Q6H PRN Nausea Oxycodone HCl 10 mg 09/09/18 22:00 09/10/18 14:04 Oxycontin PO 10 mg Q12HR SONAL Administration
[2018-09-10] MEDS: [UNRECOGNIZED DRUG - OTHER] IV SCH (20:33)
[2018-09-10] MEDS: NACL 0.9% IV SCH (20:33)
[2018-09-10] MEDS: PERIACTIN PO SCH (23:14)
[2018-09-11] MEDS: DILAUDID IV PRN ×5 (03:48→21:17)
[2018-09-11] MEDS: PERIACTIN PO SCH ×3 (06:17→22:44)
[2018-09-11] MEDS: OxyCONTIN PO SCH ×2 (09:51→22:44)
[2018-09-11] MEDS: FOLVITE PO SCH (09:51)
[2018-09-11] MEDS: ROCEPHIN/NS 1 GM/50 ML 1 GM/50 ML BAG IV SCH (09:51)
[2018-09-11] MEDS: HEPARIN SUB-Q SCH ×2 (09:53→21:18)
[2018-09-11] MEDS: BENADRYL IV PRN ×2 (10:40→16:23)
[2018-09-11] MEDS: D5NS 0.2% 1,000 ML IV SCH (10:42)
--- NOTE | 2018-09-11 10:46 | Progress Note ---
Assessment and Plan - Patient Problems (1) Chest pain Current Visit: Yes Status: Acute Plan to address problem: better. resolved. (2) Sickle cell anemia with crisis Current Visit: Yes Status: Chronic Plan to address problem: pain control. (3) Anemia Current Visit: No Status: Chronic Plan to address problem: replacement ,if needed. awaiting Blood. (4) Iron overload due to repeated red blood cell transfusions Current Visit: No Status: Chronic Plan to address problem: monitor, may chelate. will start today. (5) Dehydration Current Visit: No Status: Resolved Plan to address problem: hydration. (6) Leukocytosis Current Visit: No Status: Resolved Plan to address problem: see w/up labs. Subjective Date of service: 09/11/18 Principal diagnosis: Sickle pain crisis. Interval history: Patient seen/examined, resting in bed, records reviewed, case d/w her. Hgb 6.2, and awaiting PRBC. Iron, elevated, and will start on DESFEROLWill also start on appetite enhancement. patient seen/examined, resting in bed, s/p blood transfusion. will continue Desf for another couple of days, and d/c.Had fever last, night. Objective - Constitutional Vitals: Vital Signs - 12hr 09/10/18 09/11/18 09/11/18 23:16 02:22 02:37 Temperature 100.3 F H 98.1 F 98.1 F Pulse Rate 105 H 91 H 84 Respiratory 17 20 20 Rate Blood Pressure 110/56 124/70 120/70 O2 Sat by Pulse 92 99 Oximetry 09/11/18 09/11/18 09/11/18 03:07 03:37 04:07 Temperature 99.3 F 98.0 F 98.3 F Pulse Rate 89 84 85 Respiratory 20 20 20 Rate Blood Pressure 106/57 102/48 107/48 O2 Sat by Pulse 99 99 100 Oximetry 09/11/18 09/11/18 09/11/18 04:14 04:16 04:29 Temperature 98.3 F 98.3 F 98.1 F Pulse Rate 85 90 85 Respiratory 20 20 20 Rate Blood Pressure 107/48 101/52 103/51 O2 Sat by Pulse 100 100 100 Oximetry 09/11/18 09/11/18 09/11/18 05:36 06:14 06:45 Temperature 98.3 F 98.1 F 98.1 F Pulse Rate 90 90 92 H Respiratory 16 20 20 Rate Blood Pressure 101/52 107/58 109/63 O2 Sat by Pulse 97 100 100 Oximetry 09/11/18 09/11/18 09:51 10:40 Temperature Pulse Rate Respiratory 16 16 Rate Blood Pressure O2 Sat by Pulse Oximetry General appearance: Present: mild distress, well-nourished - EENT Eyes: PERRL, EOM intact ENT: hearing intact, clear oral mucosa Ears: bilateral: normal - Neck Neck: supple, normal ROM - Respiratory Respiratory effort: normal Respiratory: bilateral: CTA - Breasts Breasts: deferred - Cardiovascular Rhythm: regular Heart Sounds: Present: S1 & S2. Absent: gallop, rub Extremities: pulses intact, No edema, normal color, Full ROM - Gastrointestinal General gastrointestinal: Present: soft, non-tender, non-distended, normal bowel sounds Rectal Exam: deferred - Genitourinary Female genitourinary: deferred - Integumentary Integumentary: clear, warm, dry - Musculoskeletal Musculoskeletal: 1, strength equal bilaterally - Neurologic Neurologic: moves all extremities - Psychiatric Psychiatric: memory intact, appropriate mood/affect, intact judgment & insight - Labs CBC & Chem 7: 09/10/18 05:30 09/09/18 09:20 Labs: Abnormal lab results 09/10/18 09/10/18 Range/Units 05:30 08:50 Lymphocytes % (Manual) 49.0 H (13.4-35.0) % Nucleated RBC % 2.0 H (0.0-0.9) % Seg Neutrophils # Man 8.7 H (1.8-7.7) K/mm3 Lymphocytes # (Manual) 9.3 H (1.2-5.4) K/mm3 Eosinophils # (Manual) 0.6 H (0.0-0.4) K/mm3 Crossmatch See Detail Medications & Allergies - Medications Allergies/Adverse Reactions: Allergies morphine Allergy (Verified 09/09/18 08:47) Unknown oxycodone [From Percocet] Allergy (Verified 09/09/18 08:47) Unknown vancomycin Adverse Reaction (Verified 09/09/18 08:47) Unknown Home Medications: Home Medications Medication Instructions Recorded Confirmed Last Taken Type Folic Acid [Folvite] 1 mg PO DAILY 01/24/18 09/09/18 2 Days Ago History ~01/22/18 10 Hydroxyurea [Hydrea] 1,500 mg PO DAILY 01/24/18 09/09/18 2 Days Ago History ~01/22/18 500 OxyCONTIN ER TAB 10 mg PO Q12H 03/25/18 09/09/18 Unknown History Hydromorphone HCl [Dilaudid] 4 mg PO Q3H PRN 07/08/18 09/09/18 Unknown History Ibuprofen [Ibu] 800 mg PO Q6H 07/08/18 09/09/18 Unknown History Active Medications: Generic Name Dose Route Start Last Admin Trade Name Freq PRN Reason Stop Dose Admin Acetaminophen 650 mg 09/10/18 09:04 09/10/18 23:23 Tylenol PO 650 mg Q6H PRN Administration Pain, Mild (1-3) Cyproheptadine HCl 4 mg 09/10/18 22:00 09/11/18 06:17 Periactin PO 4 mg Q8HR SONAL Administration Diphenhydramine HCl 25 mg 09/09/18 10:22 09/11/18 10:40 Benadryl IV 25 mg Q6H PRN Administration Itching Folic Acid 1 mg 09/10/18 10:00 09/11/18 09:51 Folvite PO 1 mg DAILY SONAL Administration Heparin Sodium (Porcine) 5,000 unit 09/09/18 22:00 09/11/18 09:53 Heparin SUB-Q 5,000 unit Q12HR SONAL Administration Hydromorphone HCl 2 mg 09/09/18 21:20 09/11/18 10:40 Dilaudid IV 2 mg Q3H PRN Administration Pain , Severe (7-10) Dextrose/Sodium Chloride 1,000 mls @ 250 mls/hr 09/09/18 19:00 09/11/18 10:42 D5ns 0.2% IV 250 mls/hr DIRECT SONAL Administration Ceftriaxone Sodium 1 gm in 50 mls @ 100 mls/hr 09/10/18 10:00 09/11/18 09:51 Rocephin/Ns 1 Gm/50 Ml IV 100 mls/hr Q24HR SONAL Administration Deferoxamine Mesylate 3,500 mg 250 mls @ 32 mls/hr 09/10/18 19:00 09/10/18 20:33 / Sodium Chloride IV 32 mls/hr Q24H SONAL Administration Ondansetron HCl 4 mg 09/09/18 10:22 Zofran IV Q6H PRN Nausea Oxycodone HCl 10 mg 09/09/18 22:00 09/11/18 09:51 Oxycontin PO 10 mg Q12HR SONAL Administration
[2018-09-11] MEDS ORDERED: NACL 38.5 MEQ in D5W 1,000 ML IV SCH (16:15)
[2018-09-11] MEDS: NACL IV SCH (17:43)
[2018-09-11] MEDS: D5W IV SCH (17:43)
[2018-09-11] MEDS: [UNRECOGNIZED DRUG - OTHER] IV SCH (21:17)
[2018-09-11] MEDS: NACL 0.9% IV SCH (21:17)
[2018-09-12] MEDS: DILAUDID IV PRN ×5 (00:43→18:43)
[2018-09-12] MEDS: BENADRYL IV PRN ×3 (00:45→18:42)
[2018-09-12] MEDS: NACL IV SCH (05:51)
[2018-09-12] MEDS: D5W IV SCH (05:51)
[2018-09-12] MEDS: PERIACTIN PO SCH ×2 (06:10→14:33)
[2018-09-12 06:31] LABS: Hematocrit 24.5 % (30.3-42.9); Hemoglobin 8.7 gm/dl (10.1-14.3); Mean Corpuscular HGB Conc 36 % (30-34); Mean Corpuscular Volume 89 fl (79-97); Platelet Count 268 K/mm3 (140-440); Red Blood Count 2.75 M/mm3 (3.65-5.03)
[2018-09-12 06:34] LABS: Red Cell Distribution Width 20.8 % (13.2-15.2)
[2018-09-12 09:14] LABS: Basophils % (Manual) 0 % (0.0-1.8); Total Cells Counted 100
[2018-09-12 09:15] LABS: Anisocytosis 1+; Large Platelets Few; Macrocytosis Few; Platelet Estimate Consistent w Auto; Poikilocytosis 2+; Sickle Cells 2+
[2018-09-12] MEDS: NACL 38.5 MEQ in D5W 1,000 ML IV SCH ×2 (09:26→14:33)
[2018-09-12] MEDS: FOLVITE PO SCH (09:34)
[2018-09-12] MEDS: ROCEPHIN/NS 1 GM/50 ML 1 GM/50 ML BAG IV SCH (09:35)
[2018-09-12] MEDS: HEPARIN SUB-Q SCH (09:48)
[2018-09-12] MEDS: OxyCONTIN PO SCH (13:31)
[2018-09-12 16:42] VITALS: BP 130/80
--- NOTE | 2018-09-12 19:00 | Discharge Summary ---
Providers - Providers Date of Admission: 09/09/18 10:20 Date of discharge: 09/12/18 Attending physician: CAM PARSON Primary care physician: CAM PARSON Hospitalization Reason for admission: Sickle pain crisis, anemia. Condition: Stable Disposition: DC-01 TO HOME OR SELFCARE - Discharge Diagnoses (1) Chest pain Status: Resolved (2) Sickle cell anemia with crisis Status: Resolved (3) Anemia Status: Chronic (4) Iron overload due to repeated red blood cell transfusions Status: Chronic (5) Dehydration Status: Resolved (6) Leukocytosis Status: Resolved Core Measure Documentation - Palliative Care Palliative Care/ Comfort Measures: Not Applicable - Core Measures Any of the following diagnoses?: none Exam - Constitutional Vitals: Temp Pulse Resp BP Pulse Ox 98.6 F 89 14 130/80 98 09/12/18 16:34 09/12/18 16:34 09/12/18 16:34 09/12/18 16:34 09/12/18 16:34 General appearance: Present: no acute distress, well-nourished - EENT Eyes: Present: PERRL ENT: hearing intact, clear oral mucosa - Neck Neck: Present: supple, normal ROM - Respiratory Respiratory effort: normal Respiratory: bilateral: CTA - Cardiovascular Heart Sounds: Present: S1 & S2. Absent: rub, click - Extremities Extremities: pulses symmetrical, No edema Peripheral Pulses: within normal limits - Abdominal General gastrointestinal: Present: soft, non-tender, non-distended, normal bowel sounds Female genitourinary: Present: deferred - Rectal Rectal Exam: deferred - Integumentary Integumentary: Present: clear, warm, dry - Musculoskeletal Musculoskeletal: gait normal, strength equal bilaterally - Psychiatric Psychiatric: appropriate mood/affect, intact judgment & insight - Neurologic Neurologic: CNII-XII intact, moves all extremities Plan Activity: no restrictions Diet: regular Follow up with: CAM PARSON DO [Primary Care Provider] - 3-5 Days
[2018-09-12] MEDS ORDERED: FLUSH HEPARIN IV ONE (19:51)
== END 2018-09-12 20:45 | disposition home or self-care (01) | DRG 812 ==
LOC: ED 08:25 → 3A 10:20
PROVIDERS: ADMIT Internal Medicine Hematology & Oncology; ATTEND Internal Medicine Hematology & Oncology
PROC: 30233N1 Transfusion of Nonautologous Red Blood Cells into Peripheral Vein, Percutaneous Approach (ICD-10-PCS; principal; 2018-09-11)
DX: D57.00 Hb-SS disease with crisis, unspecified (principal); R07.9 Chest pain, unspecified; E83.111 Hemochromatosis due to repeated red blood cell transfusions; E86.0 Dehydration; D72.829 Elevated white blood cell count, unspecified; G89.29 Other chronic pain; D64.9 Anemia, unspecified; Z88.5 Allergy status to narcotic agent; Z88.1 Allergy status to other antibiotic agents; Z79.899 Other long term (current) drug therapy; Z90.49 Acquired absence of other specified parts of digestive tract
CPT/HCPCS: 36415; 80048; 82728; 83540; 84484; 85007; 85025; 85045; 85660; 86850; 86870; 86900; 86901; 86922; 87040; 87086; 93005; 93010; 96374; 96375; 96376; G0378; J0696; J0895; J1170; J1200; J1642; J1644; J1885; J2405; J7040; J7050; J7070; J7131; P9016

== ENCOUNTER 2018-11-28 11:11 | Outpatient (CLI) | payer MEDICAID | END 2018-11-28 11:12 | disposition home or self-care (01) | LOC: ECHO 11:11 | PROVIDERS: ATTEND Internal Medicine Hematology & Oncology | DX: I07.1 Rheumatic tricuspid insufficiency (principal); R09.02 Hypoxemia | CPT/HCPCS: 93306 ==

== ENCOUNTER 2018-12-09 15:44 | Inpatient (IN) | payer MEDICAID ==
--- NOTE | 2018-12-09 16:00 | Emergency Department Report ---
Blank Doc - Documentation Documentation: reports pain all over from mostly to joint. Reports blood transfusion 1.5 weeks ago at [facility] Went to Hydration treatment today at [facility] and labs drawn and HBG 5.0. SOB, CP received 1 liter of fluids. at [facility]. Spoke with guide foreign tour and was instructed to come to ER for evaluation. Was placed placed on O2 at infusion center. Fever 102 yesterday Sound Equipment Mechanic is Dr. Robins last seen last week Went to main ED Labs, EKG, HCG. sepsis protocol
[2018-12-09] MEDS ORDERED: NACL 0.9% 1000 ML IV ONE (16:01)
[2018-12-09] MEDS ORDERED: DILAUDID IV ONE ×3 (16:48→20:38)
[2018-12-09] MEDS ORDERED: ZOFRAN IV ONE (16:48)
[2018-12-09] MEDS ORDERED: BENADRYL IV ONE ×2 (17:12→21:03)
[2018-12-09] MEDS ORDERED: D5NS 0.2% 1,000 ML IV ONE (17:18)
--- NOTE | 2018-12-09 17:22 | Emergency Department Report ---
HPI - General Chief Complaint: Sickle Cell Crisis Time Seen by Provider: 12/09/18 15:52 - HPI HPI: Room 4 The patient is a 28-year-old female presenting with chief complaint sickle cell pain crisis. The patient states her symptoms began yesterday with fatigue and pain everywhere she states is consistent with her sickle cell. The patient went for hydration this morning at [facility]. While there the patient was informed her hemoglobin was 5 and subsequently her go cart mechanic (Dr. Robisn) instructed her to come to the ED Location: [See above] Duration: [See above] Quality: [See above] Severity: [See above] Modifying factors: [see above] Context: [see above] Mode of transportation: [not driving] ED Past Medical Hx - Past Medical History Previous Medical History?: Yes Hx Sickle Cell Disease: Yes - Surgical History Past Surgical History?: Yes Additional Surgical History: Port a cath placement. - Family History Family history: no significant - Social History Smoking Status: Never Smoker Substance Use Type: None (denies illicit drug use), Alcohol (rarely) - Medications Home Medications: Home Medications Medication Instructions Recorded Confirmed Last Taken Type Folic Acid [Folvite] 1 mg PO DAILY 01/24/18 10/10/18 2 Days Ago History ~01/22/18 10 Hydroxyurea [Hydrea] 1,500 mg PO DAILY 01/24/18 10/10/18 2 Days Ago History ~01/22/18 500 OxyCONTIN ER TAB 10 mg PO Q12H 03/25/18 10/10/18 Unknown History Hydromorphone HCl [Dilaudid] 4 mg PO Q3H PRN 07/08/18 10/10/18 Unknown History Ibuprofen [Ibu] 800 mg PO Q6H 07/08/18 10/10/18 Unknown History ED Review of Systems ROS: Stated complaint: SICKLE CELL PAIN Other details as noted in HPI Constitutional: fever Physical Exam - Physical Exam Vital Signs: Vital Signs 12/09/18 15:52 Temperature 99.7 F H Pulse Rate 130 H Respiratory 22 Rate Blood Pressure 115/64 O2 Sat by Pulse 99 Oximetry Physical Exam: GENERAL: The patient is well-developed well-nourished female lying on stretcher not appear to be in acute distress. [] HEENT: Normocephalic. Atraumatic. Extraocular motions are intact. Patient has moist mucous membranes. NECK: Supple. Trachea midline CHEST/LUNGS: Clear to auscultation. There is no respiratory distress noted. HEART/CARDIOVASCULAR: Regular. There is no tachycardia. There is no gallop rub or murmur. ABDOMEN: Abdomen is soft, nontender. Patient has normal bowel sounds. There is no abdominal distention. SKIN: There is no rash. There is no edema. There is no diaphoresis. NEURO: The patient is awake, alert, and oriented. The patient is cooperative. The patient has normal speech MUSCULOSKELETAL: There is no evidence of acute injury. ED Course Vital Signs 12/09/18 15:52 Temperature 99.7 F H Pulse Rate 130 H Respiratory 22 Rate Blood Pressure 115/64 O2 Sat by Pulse 99 Oximetry ED Medical Decision Making - Lab Data Result diagrams: 12/09/18 16:42 12/09/18 16:42 Laboratory Tests 12/09/18 12/09/18 12/09/18 16:05 16:42 16:42 WBC 19.3 H RBC 1.68 L Hgb 4.9 L* Hct 14.8 L* MCV 88 MCH 29 MCHC 33 RDW 21.7 H Plt Count 314 Lymph # Conductor Yard Percent Retic 11.26 H APTT 33.0 Sodium Potassium Chloride Carbon Dioxide Anion Gap BUN Creatinine Estimated GFR BUN/Creatinine Ratio Glucose Lactic Acid Calcium Total Bilirubin AST ALT Alkaline Phosphatase Troponin T Albumin Urine Color Yellow Urine Turbidity Cloudy Urine pH 7.[address] [place] 1.003 Urine Protein <15 mg/dl Urine Glucose (UA) Neg Urine Ketones Neg Urine Blood Mod Urine Nitrite Neg Urine Bilirubin Neg Urine Urobilinogen < 2.0 Ur Leukocyte Esterase Tr Urine WBC (Auto) 9.0 H Urine RBC (Auto) 3.0 U Epithel Cells (Auto) 40.0 H Urine Bacteria (Auto) 1+ Urine Mucus Few 12/09/18 12/09/18 16:42 16:42 WBC RBC Hgb Hct MCV MCH MCHC RDW Plt Count Lymph # Percent Retic APTT Sodium 139 Potassium 3.6 Chloride 106.6 Carbon Dioxide 22 Anion Gap 14 BUN 10 Creatinine 0.8 Estimated GFR > 60 BUN/Creatinine Ratio 13 Glucose 101 H Lactic Acid 1.00 Calcium 8.5 Total Bilirubin 3.60 H AST 89 H ALT 49 Alkaline Phosphatase 117 Troponin T < 0.010 Albumin 3.9 Urine Color Urine Turbidity Urine pH Ur Specific [place] Urine Protein Urine Glucose (UA) Urine Ketones Urine Blood Urine Nitrite Urine Bilirubin Urine Urobilinogen Ur Leukocyte Esterase Urine WBC (Auto) Urine RBC (Auto) U Epithel Cells (Auto) Urine Bacteria (Auto) Urine Mucus - Differential Diagnosis sickle cell pain crisis, symptomatic anemia Critical care attestation.: If time is entered above; I have spent that time in minutes in the direct care of this critically ill patient, excluding procedure time. ED Disposition Clinical Impression: Symptomatic anemia, Sickle cell pain crisis Disposition: OP ADMIT IP TO THIS HOSP Is pt being admited?: Yes Does the pt Need Aspirin: No Condition: Fair Time of Disposition: 18:00 (Dr Robins paged)
[2018-12-09 17:24] LABS: Mean Corpuscular HGB Conc 33 % (30-34); Mean Corpuscular Volume 88 fl (79-97); Platelet Count 314 K/mm3 (140-440); Red Blood Count 1.68 M/mm3 (3.65-5.03)
[2018-12-09 17:27] LABS: Hemoglobin 4.9 gm/dl (10.1-14.3); Red Cell Distribution Width 21.7 % (13.2-15.2)
[2018-12-09 17:28] LABS: Hematocrit 14.8 % (30.3-42.9)
[2018-12-09 17:31] LABS: Bacteria,Urine 1+ /HPF (Negative); Bilirubin,Urine NEG (Negative); Blood,Urine MOD (Negative); Color,Urine Yellow (Yellow); Mucus,Urine FEW /HPF; Protein,Urine <15 mg/dL mg/dL (Negative); Urobilinogen,Urine < 2.0 mg/dL (<2.0)
[2018-12-09] MEDS ORDERED: NACL 0.9% 500 ML 500 ML IV ONE ×2 (17:35→22:39)
[2018-12-09 17:50] LABS: Alanine Aminotransferase 49 units/L (7-56); Albumin 3.9 g/dL (3.9-5); BUN/Creatinine Ratio 13; Blood Urea Nitrogen 10 mg/dL (7-17); Calcium 8.5 mg/dL (8.4-10.2); Hemolysis Index 8
[2018-12-09 18:30] LABS: Band Neutrophils # (Manual) 1.5 K/mm3; Total Cells Counted 100
[2018-12-09 18:31] LABS: Anisocytosis 1+; Giant Platelets 1+; Hypochromasia 3+
[2018-12-09 18:32] LABS: Poikilocytosis 1+; Sickle Cells 1+
[2018-12-09 18:33] LABS: Ovalocytes Few; Target Cells Few; Tear Drop Cells Few
[2018-12-09 18:34] LABS: Platelet Estimate Consistent w Auto
--- NOTE | 2018-12-09 19:27 | XRay Report ---
CHEST 1 VIEW 7:06 PM INDICATION / CLINICAL INFORMATION: Cough and fever for one month. Sickle cell crisis. COMPARISON: 10/11/2018. FINDINGS: SUPPORT DEVICES: There is a right jugular Port-A-Cath with the tip overlying the cavoatrial junction. HEART / MEDIASTINUM: Mild cardiomegaly is stable. LUNGS / PLEURA: Minimal chronic interstitial lung disease is unchanged. No new abnormality is seen. N o pneumothorax. ADDITIONAL FINDINGS: No significant additional findings. IMPRESSION: No acute abnormality or significant change. Signer Name: Sidney Lund MD Signed: 12/09/2018 7:23 PM Workstation Name: [id number]
[2018-12-09] MEDS ORDERED: NACL 0.9% 500 ML 500 ML ONE (20:21)
[2018-12-09] MEDS ORDERED: TYLENOL PO ONE (20:43)
[2018-12-09] MEDS ORDERED: DILAUDID ONE ×2 (20:47)
[2018-12-09] MEDS ORDERED: TYLENOL ONE (20:48)
[2018-12-09] MEDS ORDERED: BENADRYL ONE (21:00)
[2018-12-09] MEDS ORDERED: SOLU-Medrol IV ONE (22:31)
[2018-12-09] MEDS ORDERED: BENADRYL IV PRN (22:36)
[2018-12-09] MEDS ORDERED: TYLENOL PO PRN (22:37)
[2018-12-09] MEDS: DILAUDID IV PRN (23:50)
[2018-12-09] MEDS: D5NS 0.2% 1,000 ML IV SCH (23:50)
[2018-12-09] MEDS: ROCEPHIN/NS 1 GM/50 ML 1 GM/50 ML BAG IV SCH (23:50)
[2018-12-10] MEDS: BENADRYL IV PRN ×3 (02:59→17:39)
[2018-12-10] MEDS: DILAUDID IV PRN ×7 (02:59→20:45)
[2018-12-10] MEDS: SOLU-Medrol IV SCH ×3 (05:23→20:59)
[2018-12-10] MEDS: D5NS 0.2% 1,000 ML IV SCH ×3 (05:24→20:59)
[2018-12-10] MEDS ORDERED: NACL 0.9% 500 ML 500 ML ONE (08:42)
[2018-12-10] MEDS: ZOFRAN IV PRN (08:46)
[2018-12-10] MEDS: OxyCONTIN PO SCH (11:04)
--- NOTE | 2018-12-10 12:16 | History and Physical Report ---
History of Present Illness Date of examination: 12/10/18 Date of admission: 12/09/18 18:06 Chief complaint: SCD/Pain crisis./Severe, symptomatic anemia. History of present illness: patient seen/examined, resting in bed,, She presented to the ER from an infusion center, with sxs of Sob, generalized fatigue, hgb was 4.9, She is admitted, transfusion ordered, and currently on the second unit of blood. She is getting hydration, and pain control. rated her pain at 8/10 at this time.She has hx of chronic iron overload. She repoprted CP, better with blood transfusion so far. Past History Social history: no significant social history, single, lives with family Family history: no significant family history Medications and Allergies Allergies Allergy/AdvReac Type Severity Reaction Status Date / Time morphine Allergy Unknown Verified 12/09/18 15:49 oxycodone [From Percocet] Allergy Unknown Verified 12/09/18 15:49 vancomycin AdvReac Unknown Verified 12/09/18 15:49 Home Medications Medication Instructions Recorded Confirmed Last Taken Type Folic Acid [Folvite] 1 mg PO DAILY 01/24/18 12/09/18 2 Days Ago History ~01/22/18 10 Hydroxyurea [Hydrea] 1,500 mg PO DAILY 01/24/18 12/09/18 2 Days Ago History ~01/22/18 500 Hydromorphone HCl [Dilaudid] 4 mg PO Q4H PRN 12/10/18 12/10/18 2 Days Ago History ~12/08/18 Ibuprofen [Motrin] 400 mg PO Q6H PRN 12/10/18 12/10/18 2 Days Ago History ~12/08/18 oxyCODONE ER [oxyCONTIN ER] 10 mg PO Q12HR 12/10/18 12/10/18 2 Days Ago History ~12/08/18 Active Meds: Active Medications Acetaminophen (Tylenol) 650 mg PO Q4H PRN PRN Reason: prior to blood transfusion Diphenhydramine HCl (Benadryl) 25 mg IV Q6H PRN PRN Reason: Itching Last Admin: 12/10/18 02:59 Dose: 25 mg Documented by: Diphenhydramine HCl (Benadryl) 25 mg IV Q4H PRN PRN Reason: prior to blood transfusion Stop: 12/11/18 22:35 Last Admin: 12/10/18 08:45 Dose: 25 mg Documented by: Hydromorphone HCl (Dilaudid) 2 mg IV Q3H PRN PRN Reason: Pain , Severe (7-10) Last Admin: 12/10/18 11:31 Dose: 2 mg Documented by: Ceftriaxone Sodium (Rocephin/Ns 1 Gm/50 Ml) 1 gm in 50 mls @ 100 mls/hr IV Q24HR@2200 SONAL; Protocol Last Admin: 12/09/18 23:50 Dose: 100 mls/hr Documented by: Dextrose/Sodium Chloride (D5ns 0.2%) 1,000 mls @ 175 mls/hr IV DIRECT SONAL Last Admin: 12/10/18 05:24 Dose: 175 mls/hr Documented by: Methylprednisolone Sodium Succinate (Solu-Medrol) 40 mg IV Q8HR SONAL Last Admin: 12/10/18 05:23 Dose: 40 mg Documented by: Ondansetron HCl (Zofran) 4 mg IV Q8H PRN PRN Reason: Nausea Last Admin: 12/10/18 08:46 Dose: 4 mg Documented by: Oxycodone HCl (Oxycontin) 10 mg PO Q12HR SONAL Last Admin: 12/10/18 11:04 Dose: 10 mg Documented by: Review of Systems Constitutional: fatigue, chronic pain Breasts: deferred Cardiovascular: chest pain Musculoskeletal: low back pain Exam - Constitutional Vitals: Temp Pulse Resp BP Pulse Ox 98.8 F 94 H 16 105/58 100 12/10/18 08:31 12/10/18 08:31 12/10/18 08:31 12/10/18 08:31 12/10/18 08:31 General appearance: Present: mild distress, well-nourished - EENT Eyes: Present: PERRL ENT: hearing intact, clear oral mucosa - Neck Neck: Present: supple, normal ROM - Respiratory Respiratory effort: normal Respiratory: bilateral: CTA - Cardiovascular Heart Sounds: Present: S1 & S2. Absent: rub, click - Extremities Extremities: pulses symmetrical, No edema Peripheral Pulses: within normal limits - Abdominal General gastrointestinal: Present: soft, non-tender, non-distended, normal bowel sounds Female genitourinary: Present: deferred - Rectal Rectal Exam: deferred - Integumentary Integumentary: Present: clear, warm, dry - Musculoskeletal Musculoskeletal: gait normal, strength equal bilaterally - Psychiatric Psychiatric: appropriate mood/affect, intact judgment & insight - Neurologic Neurologic: CNII-XII intact, moves all extremities Results - Labs CBC & Chem 7: 12/09/18 16:42 12/09/18 16:42 Labs: Abnormal lab results 12/09/18 12/09/18 12/09/18 Range/Units 16:05 16:42 16:42 WBC 19.3 H (4.5-11.0) K/mm3 RBC 1.68 L (3.65-5.03) M/mm3 Hgb 4.9 L* (10.1-14.3) gm/dl Hct 14.8 L* (30.3-42.9) % RDW 21.7 H (13.2-15.2) % Lymphocytes % (Manual) 37.0 H (13.4-35.0) % Basophils % (Manual) 2.0 H (0.0-1.8) % Nucleated RBC % 3.0 H (0.0-0.9) % Seg Neutrophils # Man 8.7 H (1.8-7.7) K/mm3 Lymphocytes # (Manual) 7.1 H (1.2-5.4) K/mm3 Monocytes # (Manual) 1.0 H (0.0-0.8) K/mm3 Basophils # (Manual) 0.4 H (0.0-0.1) K/mm3 Percent Retic 11.26 H (0.78-2.58) % Glucose 101 H (65-100) mg/dL POC Glucose (70-105) Total Bilirubin 3.60 H (0.1-1.2) mg/dL AST 89 H (5-40) units/L Urine WBC (Auto) 9.0 H (0.0-6.0) /HPF U Epithel Cells (Auto) 40.0 H (0-13.0) /HPF Crossmatch 12/09/18 12/09/18 Range/Units 16:51 22:15 WBC (4.5-11.0) K/mm3 RBC (3.65-5.03) M/mm3 Hgb (10.1-14.3) gm/dl Hct (30.3-42.9) % RDW (13.2-15.2) % Lymphocytes % (Manual) (13.4-35.0) % Basophils % (Manual) (0.0-1.8) % Nucleated RBC % (0.0-0.9) % Seg Neutrophils # Man (1.8-7.7) K/mm3 Lymphocytes # (Manual) (1.2-5.4) K/mm3 Monocytes # (Manual) (0.0-0.8) K/mm3 Basophils # (Manual) (0.0-0.1) K/mm3 Percent Retic (0.78-2.58) % Glucose (65-100) mg/dL POC Glucose 112 H (70-105) Total Bilirubin (0.1-1.2) mg/dL AST (5-40) units/L Urine WBC (Auto) (0.0-6.0) /HPF U Epithel Cells (Auto) (0-13.0) /HPF Crossmatch See Detail Assessment and Plan - Patient Problems (1) Sickle cell pain crisis Current Visit: Yes Status: Acute Plan to address problem: Pain control. (2) Symptomatic anemia Current Visit: Yes Status: Acute Plan to address problem: Replacement transfusion. (3) Iron overload due to repeated red blood cell transfusions Current Visit: No Status: Chronic Plan to address problem: Will give Desferol post transfusion. (4) Chest pain Current Visit: No Status: Resolved Plan to address problem: Due to severe anemia. (5) Dehydration Current Visit: No Status: Resolved Plan to address problem: Hydration. (6) Fever Current Visit: Yes Status: Acute Plan to address problem: See below. (7) Leukocytosis Current Visit: Yes Status: Acute Plan to address problem: Along with fever, w/u for sepsis., continue IV ABX.
[2018-12-10] MEDS ORDERED: IBUPROFEN PO PRN (12:24)
[2018-12-10] MEDS: ROCEPHIN/NS 1 GM/50 ML 1 GM/50 ML BAG IV SCH (20:59)
[2018-12-10] MEDS ORDERED: OxyCONTIN PO SCH (22:00)
[2018-12-11] MEDS: BENADRYL IV PRN ×4 (00:04→21:45)
[2018-12-11] MEDS: DILAUDID IV PRN ×7 (00:04→21:44)
[2018-12-11] MEDS: OxyCONTIN PO SCH ×3 (00:11→21:43)
[2018-12-11] MEDS: D5NS 0.2% 1,000 ML IV SCH ×4 (04:30→21:41)
[2018-12-11 05:56] LABS: Hematocrit 23.8 % (30.3-42.9); Hemoglobin 8.1 gm/dl (10.1-14.3); Mean Corpuscular HGB Conc 34 % (30-34); Mean Corpuscular Volume 87 fl (79-97); Platelet Count 326 K/mm3 (140-440); Red Blood Count 2.74 M/mm3 (3.65-5.03); Red Cell Distribution Width 18.4 % (13.2-15.2)
[2018-12-11 06:20] LABS: BUN/Creatinine Ratio 16; Blood Urea Nitrogen 8 mg/dL (7-17); Hemolysis Index 10; Iron 145 ug/dL (37-170)
[2018-12-11 06:22] LABS: Total Iron Binding Capacity 136 mcg/dL (250-450)
[2018-12-11] MEDS: SOLU-Medrol IV SCH ×2 (06:59→14:38)
[2018-12-11 07:31] LABS: Band Neutrophils # (Manual) 0.3 K/mm3; Basophils % (Manual) 0 % (0.0-1.8); Eosinophils % (Manual) 0 % (0.0-4.3); Total Cells Counted 100
[2018-12-11 07:32] LABS: Anisocytosis 1+; Hypochromasia 1+; Platelet Estimate Consistent w Auto; Target Cells Rare
[2018-12-11] MEDS: ZOFRAN IV PRN (09:02)
[2018-12-11] MEDS: FOLVITE PO SCH (09:03)
[2018-12-11] MEDS: HYDREA PO SCH (09:17)
--- NOTE | 2018-12-11 14:13 | Progress Note ---
Assessment and Plan - Patient Problems (1) Sickle cell pain crisis Current Visit: Yes Status: Acute Plan to address problem: Pain control. (2) Symptomatic anemia Current Visit: Yes Status: Acute Plan to address problem: Replacement transfusion. Post transfusion replacement. (3) Iron overload due to repeated red blood cell transfusions Current Visit: No Status: Chronic Plan to address problem: Will give Desferol post transfusion. Will start on Iron chelation. (4) Chest pain Current Visit: No Status: Resolved Plan to address problem: Due to severe anemia. Resolved. (5) Dehydration Current Visit: No Status: Resolved Plan to address problem: Hydration. continue to hydrate. (6) Fever Current Visit: Yes Status: Acute Plan to address problem: See below. resolved. (7) Leukocytosis Current Visit: Yes Status: Acute Plan to address problem: Along with fever, w/u for sepsis., continue IV ABX. See notes . Partly due to steroids. Subjective Date of service: 12/11/18 Interval history: Patient seen/examined, resting in bed, labs reviewed, case d/w her. WBC elevated, in part ,due to the steroids. All cultures so far negative.Hgb now at 8+. will start on Desferol tx. for the next few days, her pain crisis get under control. Objective - Constitutional Vitals: Vital Signs - 12hr 12/11/18 12/11/18 12/11/18 04:42 05:55 12:07 Temperature 98.9 F 98.2 F Pulse Rate 68 76 Respiratory 16 18 16 Rate Blood Pressure 134/70 124/60 O2 Sat by Pulse 100 99 Oximetry General appearance: Present: mild distress, well-nourished - EENT Eyes: PERRL, EOM intact ENT: hearing intact, clear oral mucosa Ears: bilateral: normal - Neck Neck: supple, normal ROM - Respiratory Respiratory effort: normal Respiratory: bilateral: CTA - Breasts Breasts: deferred - Cardiovascular Rhythm: regular Heart Sounds: Present: S1 & S2. Absent: gallop, rub Extremities: pulses intact, No edema, normal color, Full ROM - Gastrointestinal General gastrointestinal: Present: soft, non-tender, non-distended, normal bowel sounds Rectal Exam: deferred - Genitourinary Female genitourinary: deferred - Integumentary Integumentary: clear, warm, dry - Musculoskeletal Musculoskeletal: 1, strength equal bilaterally - Neurologic Neurologic: moves all extremities - Psychiatric Psychiatric: memory intact, appropriate mood/affect, intact judgment & insight - Labs CBC & Chem 7: 12/11/18 05:37 12/11/18 05:37 Labs: Abnormal lab results 12/09/18 12/11/18 12/11/18 Range/Units 16:51 05:37 05:37 WBC 26.0 H (4.5-11.0) K/mm3 RBC 2.74 L (3.65-5.03) M/mm3 Hgb 8.1 L D (10.1-14.3) gm/dl Hct 23.8 L D (30.3-42.9) % RDW 18.4 H (13.2-15.2) % Monocytes % (Manual) 8.0 H (0.0-7.3) % Nucleated RBC % 2.0 H (0.0-0.9) % Seg Neutrophils # Man 17.2 H (1.8-7.7) K/mm3 Lymphocytes # (Manual) 6.5 H (1.2-5.4) K/mm3 Monocytes # (Manual) 2.1 H (0.0-0.8) K/mm3 Percent Retic 12.45 H (0.78-2.58) % Creatinine 0.5 L (0.7-1.2) mg/dL Glucose 169 H (65-100) mg/dL TIBC 136 L (250-450) mcg/dL Ferritin (13.0-400.0) ng/mL Crossmatch See Detail 12/11/18 Range/Units 05:37 WBC (4.5-11.0) K/mm3 RBC (3.65-5.03) M/mm3 Hgb (10.1-14.3) gm/dl Hct (30.3-42.9) % RDW (13.2-15.2) % Monocytes % (Manual) (0.0-7.3) % Nucleated RBC % (0.0-0.9) % Seg Neutrophils # Man (1.8-7.7) K/mm3 Lymphocytes # (Manual) (1.2-5.4) K/mm3 Monocytes # (Manual) (0.0-0.8) K/mm3 Percent Retic (0.78-2.58) % Creatinine (0.7-1.2) mg/dL Glucose (65-100) mg/dL TIBC (250-450) mcg/dL Ferritin 5035.0 H (13.0-400.0) ng/mL Crossmatch
[2018-12-11] MEDS: ROCEPHIN/NS 1 GM/50 ML 1 GM/50 ML BAG IV SCH (21:42)
[2018-12-12] MEDS: DILAUDID IV PRN ×7 (01:31→21:20)
[2018-12-12] MEDS: D5NS 0.2% 1,000 ML IV SCH ×3 (04:19→22:32)
[2018-12-12] MEDS: BENADRYL IV PRN ×3 (04:30→17:48)
[2018-12-12] MEDS: FOLVITE PO SCH (09:40)
[2018-12-12] MEDS: OxyCONTIN PO SCH ×2 (09:41→21:14)
[2018-12-12] MEDS: HYDREA PO SCH (09:43)
[2018-12-12] MEDS: [UNRECOGNIZED DRUG - OTHER] IV SCH (10:00)
[2018-12-12] MEDS: NACL 0.9% IV SCH (10:00)
[2018-12-12] MEDS: ZOFRAN IV PRN (11:27)
--- NOTE | 2018-12-12 19:16 | Progress Note ---
Assessment and Plan - Patient Problems (1) Sickle cell pain crisis Current Visit: Yes Status: Acute Plan to address problem: Pain control. (2) Symptomatic anemia Current Visit: Yes Status: Acute Plan to address problem: Replacement transfusion. Post transfusion replacement. (3) Iron overload due to repeated red blood cell transfusions Current Visit: No Status: Chronic Plan to address problem: Will give Desferol post transfusion. Will start on Iron chelation. (4) Chest pain Current Visit: No Status: Resolved Plan to address problem: Due to severe anemia. Resolved. (5) Dehydration Current Visit: No Status: Resolved Plan to address problem: Hydration. continue to hydrate. (6) Fever Current Visit: Yes Status: Acute Plan to address problem: See below. resolved. (7) Leukocytosis Current Visit: Yes Status: Acute Plan to address problem: Along with fever, w/u for sepsis., continue IV ABX. See notes . Partly due to steroids. Subjective Date of service: 12/12/18 Interval history: Patient seen/examined, resting in bed, labs reviewed, case d/w her. WBC elevated, in part ,due to the steroids. All cultures so far negative.Hgb now at 8+. will start on Desferol tx. for the next few days, her pain crisis get under control. Patient seen/examined, resting in bed, labs/reviewed, case d/w patient. Desfaral infusion on board, will plan d/w for tomorrow. Objective - Constitutional Vitals: Vital Signs - 12hr 12/12/18 12/12/18 12/12/18 09:32 10:00 12:34 Temperature 98.6 F Pulse Rate 82 Respiratory 16 Rate Blood Pressure 102/45 O2 Sat by Pulse 99 96 99 Oximetry 12/12/18 16:26 Temperature 98.8 F Pulse Rate 78 Respiratory 16 Rate Blood Pressure 110/58 O2 Sat by Pulse 95 Oximetry General appearance: Present: mild distress, well-nourished - EENT Eyes: PERRL, EOM intact ENT: hearing intact, clear oral mucosa Ears: bilateral: normal - Neck Neck: supple, normal ROM - Respiratory Respiratory effort: normal Respiratory: bilateral: CTA - Breasts Breasts: deferred - Cardiovascular Rhythm: regular Heart Sounds: Present: S1 & S2. Absent: gallop, rub Extremities: pulses intact, No edema, normal color, Full ROM - Gastrointestinal General gastrointestinal: Present: soft, non-tender, non-distended, normal bowel sounds Rectal Exam: deferred - Integumentary Integumentary: clear, warm, dry - Musculoskeletal Musculoskeletal: 1, strength equal bilaterally - Neurologic Neurologic: moves all extremities - Psychiatric Psychiatric: memory intact, appropriate mood/affect, intact judgment & insight - Labs CBC & Chem 7: 12/11/18 05:37 12/11/18 05:37 Medications & Allergies - Medications Allergies/Adverse Reactions: Allergies morphine Allergy (Verified 12/09/18 15:49) Unknown oxycodone [From Percocet] Allergy (Verified 12/09/18 15:49) Unknown vancomycin Adverse Reaction (Verified 12/09/18 15:49) Unknown Home Medications: Home Medications Medication Instructions Recorded Confirmed Last Taken Type Folic Acid [Folvite] 1 mg PO DAILY 01/24/18 12/09/18 2 Days Ago History ~01/22/18 10 Hydroxyurea [Hydrea] 1,500 mg PO DAILY 01/24/18 12/09/18 2 Days Ago History ~01/22/18 500 Hydromorphone HCl [Dilaudid] 4 mg PO Q4H PRN 12/10/18 12/10/18 2 Days Ago History ~12/08/18 Ibuprofen [Motrin] 400 mg PO Q6H PRN 12/10/18 12/10/18 2 Days Ago History ~12/08/18 oxyCODONE ER [oxyCONTIN ER] 10 mg PO Q12HR 12/10/18 12/10/18 2 Days Ago History ~12/08/18 Active Medications: Generic Name Dose Route Start Last Admin Trade Name Brijeshq PRN Reason Stop Dose Admin Acetaminophen 650 mg 12/09/18 22:37 12/12/18 07:46 Tylenol PO 650 mg Q4H PRN Administration prior to blood transfusion Diphenhydramine HCl 25 mg 12/09/18 22:30 12/12/18 17:48 Benadryl IV 25 mg Q6H PRN Administration Itching Folic Acid 1 mg 12/11/18 10:00 12/12/18 09:40 Folvite PO 1 mg DAILY SONAL Administration Hydromorphone HCl 2 mg 12/10/18 06:40 12/12/18 17:48 Dilaudid IV 2 mg Q3H PRN Administration Pain , Severe (7-10) Hydroxyurea 1,500 mg 12/11/18 10:00 12/12/18 09:43 Hydrea PO 1,500 mg DAILY SONAL Administration Ceftriaxone Sodium 1 gm in 50 mls @ 100 mls/hr 12/09/18 22:27 12/11/18 21:42 Rocephin/Ns 1 Gm/50 Ml IV 100 mls/hr Q24HR@2200 SONAL Administration Protocol Dextrose/Sodium Chloride 1,000 mls @ 175 mls/hr 12/09/18 23:00 12/12/18 09:38 D5ns 0.2% IV 175 mls/hr DIRECT SONAL Administration Deferoxamine Mesylate 3,500 mg 250 mls @ 32 mls/hr 12/12/18 10:00 12/12/18 10:00 / Sodium Chloride IV 12/15/18 17:49 32 mls/hr Q24HR SONAL Administration Ibuprofen 400 mg 12/10/18 12:24 Ibuprofen PO Q6H PRN Pain , Severe (7-10) Ondansetron HCl 4 mg 12/09/18 22:29 12/12/18 11:27 Zofran IV 4 mg Q8H PRN Administration Nausea Oxycodone HCl 10 mg 12/10/18 10:00 12/12/18 09:41 Oxycontin PO 10 mg Q12HR SONAL Administration
[2018-12-12] MEDS: ROCEPHIN/NS 1 GM/50 ML 1 GM/50 ML BAG IV SCH (21:15)
[2018-12-12] MEDS: MIRALAX 3350 PO SCH (21:15)
[2018-12-13] MEDS: DILAUDID IV PRN ×7 (00:40→22:06)
[2018-12-13] MEDS: BENADRYL IV PRN ×4 (00:40→18:24)
[2018-12-13] MEDS: D5NS 0.2% 1,000 ML IV SCH ×2 (04:50→10:07)
[2018-12-13] MEDS: NACL 0.9% IV SCH (09:52)
[2018-12-13] MEDS: [UNRECOGNIZED DRUG - OTHER] IV SCH (09:52)
[2018-12-13] MEDS: OxyCONTIN PO SCH ×2 (09:53→22:06)
[2018-12-13] MEDS: MIRALAX 3350 PO SCH ×2 (09:53→22:13)
[2018-12-13] MEDS: FOLVITE PO SCH (09:54)
[2018-12-13] MEDS: HYDREA PO SCH (09:54)
[2018-12-13] MEDS: ZOFRAN IV PRN ×2 (09:55→18:24)
--- NOTE | 2018-12-13 20:06 | Progress Note ---
Assessment and Plan - Patient Problems (1) Sickle cell pain crisis Current Visit: Yes Status: Acute Plan to address problem: Pain control. (2) Symptomatic anemia Current Visit: Yes Status: Acute Plan to address problem: Replacement transfusion. Post transfusion replacement. stable hgb for now. (3) Iron overload due to repeated red blood cell transfusions Current Visit: No Status: Chronic Plan to address problem: Will give Desferol post transfusion. Will start on Iron chelation. continue with current infusion. (4) Fever Current Visit: Yes Status: Acute Plan to address problem: See below. resolved. (5) Leukocytosis Current Visit: Yes Status: Acute Plan to address problem: Along with fever, w/u for sepsis., continue IV ABX. See notes . Partly due to steroids. better. Subjective Date of service: 12/13/18 Principal diagnosis: SCD/Pain crisis. Interval history: Patient seen/examined, resting in bed, labs reviewed, case d/w her. WBC elevated, in part ,due to the steroids. All cultures so far negative.Hgb now at 8+. will start on Desferol tx. for the next few days, her pain crisis get under control. Patient seen/examined, resting in bed, labs/reviewed, case d/w patient. Desfaral infusion on board, will plan d/w for tomorrow. Patient seen/examined, resting in bed, records reviewed, Continue Desfaral . Once pain some what control, will d/c home. Objective - Constitutional Vitals: Vital Signs - 12hr 12/13/18 12/13/18 12:42 16:10 Temperature 98.5 F 98.5 F Pulse Rate 95 H 88 Respiratory 20 20 Rate Blood Pressure 112/73 108/57 O2 Sat by Pulse 96 98 Oximetry General appearance: Present: mild distress, well-nourished - EENT Eyes: PERRL, EOM intact ENT: hearing intact, clear oral mucosa Ears: bilateral: normal - Neck Neck: supple, normal ROM - Respiratory Respiratory effort: normal Respiratory: bilateral: CTA - Breasts Breasts: deferred - Cardiovascular Rhythm: regular Heart Sounds: Present: S1 & S2. Absent: gallop, rub Extremities: pulses intact, No edema, normal color, Full ROM - Gastrointestinal General gastrointestinal: Present: soft, non-tender, non-distended, normal bowel sounds Rectal Exam: deferred - Genitourinary Female genitourinary: deferred - Integumentary Integumentary: clear, warm, dry - Musculoskeletal Musculoskeletal: 1, strength equal bilaterally - Neurologic Neurologic: moves all extremities - Psychiatric Psychiatric: memory intact, appropriate mood/affect, intact judgment & insight - Labs CBC & Chem 7: 12/11/18 05:37 12/11/18 05:37 Labs: Abnormal lab results 12/13/18 Range/Units 02:11 POC Glucose 141 H (70-105)
[2018-12-13] MEDS: ROCEPHIN/NS 1 GM/50 ML 1 GM/50 ML BAG IV SCH (22:05)
[2018-12-14] MEDS: BENADRYL IV PRN ×3 (01:37→17:11)
[2018-12-14] MEDS: DILAUDID IV PRN ×4 (01:37→17:12)
[2018-12-14] MEDS: D5NS 0.2% 1,000 ML IV SCH ×2 (06:53→22:31)
[2018-12-14] MEDS: OxyCONTIN PO SCH ×2 (09:57→22:32)
[2018-12-14] MEDS: NACL 0.9% IV SCH (09:58)
[2018-12-14] MEDS: MIRALAX 3350 PO SCH ×2 (09:58→22:32)
[2018-12-14] MEDS: [UNRECOGNIZED DRUG - OTHER] IV SCH (09:58)
[2018-12-14] MEDS: FOLVITE PO SCH (09:59)
[2018-12-14] MEDS: HYDREA PO SCH (10:01)
--- NOTE | 2018-12-14 19:00 | Progress Note ---
Assessment and Plan - Patient Problems (1) Sickle cell pain crisis Current Visit: Yes Status: Acute Plan to address problem: Pain control. (2) Symptomatic anemia Current Visit: Yes Status: Acute Plan to address problem: Replacement transfusion. Post transfusion replacement. stable hgb for now. (3) Iron overload due to repeated red blood cell transfusions Current Visit: No Status: Chronic Plan to address problem: Will give Desferol post transfusion. Will start on Iron chelation. continue with current infusion. (4) Fever Current Visit: Yes Status: Acute Plan to address problem: See below. resolved. (5) Leukocytosis Current Visit: Yes Status: Acute Plan to address problem: Along with fever, w/u for sepsis., continue IV ABX. See notes . Partly due to steroids. better. Subjective Date of service: 12/14/18 Principal diagnosis: SCD/Pain crisis. Interval history: Patient seen/examined, resting in bed, labs reviewed, case d/w her. WBC elevated, in part ,due to the steroids. All cultures so far negative.Hgb now at 8+. will start on Desferol tx. for the next few days, her pain crisis get under control. Patient seen/examined, resting in bed, labs/reviewed, case d/w patient. Desfaral infusion on board, will plan d/w for tomorrow. Patient seen/examined, resting in bed, records reviewed, Continue Desfaral . Once pain some what control, will d/c home. patient seen/examined, resting in bed, c/o still in pain, 12/14.continue with Desfaral, for one more day, then d/c home. Objective - Constitutional Vitals: Vital Signs - 12hr 12/14/18 12/14/18 12/14/18 09:57 11:21 13:51 Temperature 99.0 F Pulse Rate 99 H Respiratory 20 20 20 Rate Blood Pressure 103/63 O2 Sat by Pulse 97 Oximetry 12/14/18 12/14/18 17:05 17:12 Temperature 99.0 F Pulse Rate 96 H Respiratory 20 20 Rate Blood Pressure 125/79 O2 Sat by Pulse 97 Oximetry General appearance: Present: mild distress, well-nourished - EENT Eyes: PERRL, EOM intact ENT: hearing intact, clear oral mucosa Ears: bilateral: normal - Neck Neck: supple, normal ROM - Respiratory Respiratory effort: normal Respiratory: bilateral: CTA - Breasts Breasts: deferred - Cardiovascular Rhythm: regular Heart Sounds: Present: S1 & S2. Absent: gallop, rub Extremities: pulses intact, No edema, normal color, Full ROM - Gastrointestinal General gastrointestinal: Present: soft, non-tender, non-distended, normal bowel sounds Rectal Exam: deferred - Genitourinary Female genitourinary: deferred - Integumentary Integumentary: clear, warm, dry - Musculoskeletal Musculoskeletal: 1, strength equal bilaterally - Neurologic Neurologic: moves all extremities - Psychiatric Psychiatric: memory intact, appropriate mood/affect, intact judgment & insight - Labs CBC & Chem 7: 12/11/18 05:37 12/11/18 05:37 Labs: Abnormal lab results 12/13/18 Range/Units 21:34 POC Glucose 128 H (70-105)
[2018-12-14] MEDS: ROCEPHIN/NS 1 GM/50 ML 1 GM/50 ML BAG IV SCH (22:32)
[2018-12-15] MEDS: DILAUDID IV PRN ×7 (00:39→22:06)
[2018-12-15] MEDS: BENADRYL IV PRN ×4 (01:36→22:06)
[2018-12-15] MEDS: D5NS 0.2% 1,000 ML IV SCH (04:43)
[2018-12-15 06:12] LABS: Hemoglobin 6.5 gm/dl (10.1-14.3); Mean Corpuscular HGB Conc 34 % (30-34); Mean Corpuscular Volume 93 fl (79-97); Platelet Count 282 K/mm3 (140-440); Red Blood Count 2.09 M/mm3 (3.65-5.03); Red Cell Distribution Width 18.2 % (13.2-15.2)
[2018-12-15 06:52] LABS: Hematocrit 19.4 % (30.3-42.9)
[2018-12-15] MEDS ORDERED: NACL 0.9% 500 ML 500 ML IV NR (07:50)
[2018-12-15] MEDS ORDERED: BENADRYL IV NR (07:57)
[2018-12-15] MEDS: FOLVITE PO SCH (09:55)
[2018-12-15] MEDS: MIRALAX 3350 PO SCH ×2 (09:56→22:06)
[2018-12-15] MEDS: [UNRECOGNIZED DRUG - OTHER] IV SCH (10:00)
[2018-12-15] MEDS: NACL 0.9% IV SCH (10:00)
[2018-12-15] MEDS: OxyCONTIN PO SCH (10:00)
[2018-12-15] MEDS: HYDREA PO SCH (11:46)
[2018-12-15] MEDS ORDERED: TYLENOL PO ONE (12:00)
[2018-12-15 13:34] LABS: Anisocytosis 1+; Basophils % (Manual) 0 % (0.0-1.8); Macrocytosis Few; Total Cells Counted 100
[2018-12-15 13:35] LABS: Hypochromasia 1+; Platelet Estimate Consistent w Auto; Poikilocytosis 1+; Sickle Cells 1+; Target Cells Rare
--- NOTE | 2018-12-15 14:22 | Progress Note ---
Assessment and Plan - Patient Problems (1) Sickle cell pain crisis Current Visit: Yes Status: Acute Plan to address problem: Pain control. continue with pain control. (2) Symptomatic anemia Current Visit: Yes Status: Acute Plan to address problem: Replacement transfusion. Post transfusion replacement. stable hgb for now. (3) Iron overload due to repeated red blood cell transfusions Current Visit: No Status: Chronic Plan to address problem: Will give Desferol post transfusion. Will start on Iron chelation. continue with current infusion. (4) Fever Current Visit: Yes Status: Acute Plan to address problem: See below. resolved. (5) Leukocytosis Current Visit: Yes Status: Acute Plan to address problem: Along with fever, w/u for sepsis., continue IV ABX. See notes . Partly due to steroids. better. non sepsis related. (6) Sepsis Current Visit: Yes Status: Acute Plan to address problem: Rulled out, with negative cultures. Subjective Date of service: 12/15/18 Principal diagnosis: SCD/Pain crisis. Interval history: Patient seen/examined, resting in bed, labs reviewed, case d/w her. WBC elevated, in part ,due to the steroids. All cultures so far negative.Hgb now at 8+. will start on Desferol tx. for the next few days, her pain crisis get under control. Patient seen/examined, resting in bed, labs/reviewed, case d/w patient. Desfaral infusion on board, will plan d/w for tomorrow. Patient seen/examined, resting in bed, records reviewed, Continue Desfaral . Once pain some what control, will d/c home. patient seen/examined, resting in bed, c/o still in pain, 12/14.continue with Desfaral, for one more day, then d/c home. Patient seen/examined, resting in bed, labs reviewed, showing quite low hgb, and will need replacement transfusion.One more day of Desfaral. Objective - Constitutional Vitals: Vital Signs - 12hr 12/15/18 12/15/18 05:44 11:50 Temperature 98.7 F 98.3 F Pulse Rate 89 99 H Respiratory 18 14 Rate Blood Pressure 99/63 122/71 O2 Sat by Pulse 99 96 Oximetry General appearance: Present: mild distress, well-nourished - EENT Eyes: PERRL, EOM intact ENT: hearing intact, clear oral mucosa Ears: bilateral: normal - Neck Neck: supple, normal ROM - Respiratory Respiratory effort: normal Respiratory: bilateral: CTA - Breasts Breasts: deferred - Cardiovascular Rhythm: regular Heart Sounds: Present: S1 & S2. Absent: gallop, rub Extremities: pulses intact, No edema, normal color, Full ROM - Gastrointestinal General gastrointestinal: Present: soft, non-tender, non-distended, normal bowel sounds Rectal Exam: deferred - Genitourinary Female genitourinary: deferred - Integumentary Integumentary: clear, warm, dry - Musculoskeletal Musculoskeletal: 1, strength equal bilaterally - Neurologic Neurologic: moves all extremities - Psychiatric Psychiatric: memory intact, appropriate mood/affect, intact judgment & insight - Labs CBC & Chem 7: 12/15/18 05:23 12/11/18 05:37 Labs: Abnormal lab results 12/15/18 12/15/18 Range/Units 05:23 08:28 WBC 16.5 H (4.5-11.0) K/mm3 RBC 2.09 L (3.65-5.03) M/mm3 Hgb 6.5 L (10.1-14.3) gm/dl Hct 19.4 L* (30.3-42.9) % RDW 18.2 H (13.2-15.2) % Lymphocytes % (Manual) 55.0 H (13.4-35.0) % Nucleated RBC % 3.0 H (0.0-0.9) % Lymphocytes # (Manual) 9.1 H (1.2-5.4) K/mm3 Percent Retic 11.04 H (0.78-2.58) % Crossmatch See Detail
[2018-12-15] MEDS: ZOFRAN IV PRN (18:43)
[2018-12-15 22:36] LABS: Hematocrit 23.1 % (30.3-42.9); Hemoglobin 7.6 gm/dl (10.1-14.3); Mean Corpuscular HGB Conc 33 % (30-34); Mean Corpuscular Volume 92 fl (79-97); Platelet Count 299 K/mm3 (140-440); Red Blood Count 2.51 M/mm3 (3.65-5.03); Red Cell Distribution Width 17.7 % (13.2-15.2)
[2018-12-15 23:04] LABS: Basophils % (Manual) 0 % (0.0-1.8); Total Cells Counted 100
[2018-12-15 23:05] LABS: Platelet Estimate Consistent w Auto
[2018-12-15 23:06] LABS: Anisocytosis 1+; Sickle Cells 1+; Spherocytes 1+
[2018-12-15 23:07] LABS: Target Cells Few
[2018-12-16] MEDS: OxyCONTIN PO SCH ×2 (01:07→10:01)
[2018-12-16] MEDS: DILAUDID IV PRN ×6 (02:09→20:46)
[2018-12-16] MEDS: BENADRYL IV PRN ×3 (06:56→21:04)
[2018-12-16 08:02] LABS: Hematocrit 22.4 % (30.3-42.9); Hemoglobin 7.5 gm/dl (10.1-14.3); Mean Corpuscular HGB Conc 34 % (30-34); Mean Corpuscular Volume 92 fl (79-97); Platelet Count 281 K/mm3 (140-440); Red Blood Count 2.44 M/mm3 (3.65-5.03); Red Cell Distribution Width 17.4 % (13.2-15.2)
[2018-12-16] MEDS: HYDREA PO SCH (10:02)
[2018-12-16] MEDS: FOLVITE PO SCH (10:02)
[2018-12-16] MEDS: MIRALAX 3350 PO SCH (10:02)
[2018-12-16 11:25] LABS: Basophils % (Manual) 0 % (0.0-1.8); Total Cells Counted 100
[2018-12-16 11:38] LABS: Anisocytosis 1+; Poikilocytosis 1+
[2018-12-16 11:39] LABS: Macrocytosis Few; Ovalocytes Few; Platelet Estimate Consistent w Auto; Sickle Cells Few
[2018-12-16 18:35] VITALS: BP 118/72
--- NOTE | 2018-12-16 21:17 | Discharge Summary ---
Providers - Providers Date of Admission: 12/09/18 18:06 Date of discharge: 12/16/18 Attending physician: CAM PARSON [facility] Reason for admission: SCD/Anemia with pain crisis. Condition: Stable Hospital course: Patient presented to the ER ,with CC of diffuse joint pain, and fever. She was worked up, and admitted to the hospitalfor further w/up, sxs control, and management.Patient was hydrated, transfused with total of 4units of PRBC, for repeated anemia, despite replacement transfusion. Her pain was treated with pain meds. She also had Desfaral tx due to chronic iron overload.She was ruled out for sepsis. She is seen today, examined, pain at 4-10/14, denies any chest pain. She is therefore d/c home. Disposition: - TO HOME OR SELFCARE - Discharge Diagnoses (1) Sickle cell pain crisis Status: Resolved (2) Symptomatic anemia Status: Resolved (3) Iron overload due to repeated red blood cell transfusions Status: Chronic (4) Fever Status: Resolved (5) Leukocytosis Status: Resolved (6) Sepsis Status: Ruled-out Core Measure Documentation - Palliative Care Palliative Care/ Comfort Measures: Not Applicable - Core Measures Any of the following diagnoses?: none Exam - Constitutional Vitals: Temp Pulse Resp BP Pulse Ox 98.4 F 92 H 14 118/72 100 12/16/18 17:08 12/16/18 17:08 12/16/18 17:08 12/16/18 17:08 12/16/18 17:08 General appearance: Present: no acute distress, well-nourished - EENT Eyes: Present: PERRL ENT: hearing intact, clear oral mucosa - Neck Neck: Present: supple, normal ROM - Respiratory Respiratory effort: normal Respiratory: bilateral: CTA - Cardiovascular Heart Sounds: Present: S1 & S2. Absent: rub, click - Extremities Extremities: pulses symmetrical, No edema Peripheral Pulses: within normal limits - Abdominal General gastrointestinal: Present: soft, non-tender, non-distended, normal bowel sounds Female genitourinary: Present: deferred - Rectal Rectal Exam: deferred - Integumentary Integumentary: Present: clear, warm, dry - Musculoskeletal Musculoskeletal: gait normal, strength equal bilaterally - Psychiatric Psychiatric: appropriate mood/affect, intact judgment & insight - Neurologic Neurologic: CNII-XII intact, moves all extremities Plan Activity: no restrictions Diet: regular Follow up with: EVELIN ORR MD [Primary Care Provider] - 7 Days CAM PARSON DO [Family Provider] - 7 Days
[2018-12-16] MEDS ORDERED: FLUSH HEPARIN IV ONE (22:00)
== END 2018-12-16 22:41 | disposition home or self-care (01) | DRG 812 ==
LOC: ED 15:44 → 3A 18:06
PROVIDERS: ADMIT Internal Medicine Hematology & Oncology; ATTEND Internal Medicine Hematology & Oncology
PROC: 30233N1 Transfusion of Nonautologous Red Blood Cells into Peripheral Vein, Percutaneous Approach (ICD-10-PCS; principal; 2018-12-09)
DX: D57.00 Hb-SS disease with crisis, unspecified (principal); E83.111 Hemochromatosis due to repeated red blood cell transfusions; D72.829 Elevated white blood cell count, unspecified; E86.0 Dehydration; Z88.5 Allergy status to narcotic agent; Z88.1 Allergy status to other antibiotic agents
CPT/HCPCS: 36415; 36430; 71045; 80048; 80053; 81001; 82140; 82550; 82728; 82962; 83550; 84484; 84703; 85007; 85025; 85045; 85660; 85730; 86850; 86870; 86900; 86901; 86922; 87040; 87086; 93005; 93010; 94760; 96365; 96375; G0378; J0696; J0895; J1170; J1200; J1642; J2405; J2920; J2930; J7030; J7040; J7050; P9016

== ENCOUNTER 2019-03-20 15:02 | Inpatient (IN) | payer MEDICAID ==
[2019-03-20] MEDS ORDERED: RESTORIL PO PRN (16:12)
[2019-03-20] MEDS ORDERED: NACL 0.9% 500 ML 500 ML IV NR (17:20)
[2019-03-20] MEDS ORDERED: FOLVITE PO SCH (18:00)
[2019-03-20] MEDS ORDERED: TORADOL IV SCH (18:30)
[2019-03-20] MEDS: D5NS 0.2% 1,000 ML IV SCH (18:43)
[2019-03-20] MEDS: DILAUDID IV PRN ×2 (18:58→22:45)
[2019-03-20] MEDS: FOLVITE PO SCH (19:01)
[2019-03-20] MEDS: BENADRYL IV PRN (19:25)
[2019-03-20 19:54] LABS: Hemoglobin 6.9 gm/dl (10.1-14.3)
[2019-03-20 20:06] LABS: Hematocrit 19.6 % (30.3-42.9)
[2019-03-20] MEDS: HEPARIN SUB-Q SCH (22:45)
[2019-03-20] MEDS: HYDREA PO SCH (22:45)
[2019-03-20] MEDS: Desferal 3,000 MG in NACL 0.9% 250ML 250 ML IV SCH (22:45)
[2019-03-20] MEDS: SODIUM CHLORIDE FLUSH SYRINGE 10 ML IV PRN (22:50)
[2019-03-20] MEDS: SODIUM CHLORIDE FLUSH SYRINGE 10 ML IV SCH (22:50)
[2019-03-21] MEDS: TORADOL IV SCH ×4 (01:06→19:30)
[2019-03-21] MEDS: SODIUM CHLORIDE FLUSH SYRINGE 10 ML IV PRN ×3 (01:06→06:27)
[2019-03-21] MEDS: BENADRYL IV PRN ×6 (03:02→22:59)
[2019-03-21] MEDS: DILAUDID IV PRN ×7 (03:02→22:58)
[2019-03-21] MEDS: D5NS 0.2% 1,000 ML IV SCH ×2 (07:37→15:09)
[2019-03-21] MEDS: SODIUM CHLORIDE FLUSH SYRINGE 10 ML IV SCH ×2 (09:38→23:00)
[2019-03-21] MEDS: FOLVITE PO SCH (09:39)
[2019-03-21] MEDS ORDERED: HYDREA PO SCH ×2 (10:00)
[2019-03-21] MEDS: HEPARIN SUB-Q SCH ×2 (10:12→23:00)
[2019-03-21] MEDS: HYDREA PO SCH ×3 (11:08→22:59)
[2019-03-21] MEDS ORDERED: NACL 0.9% 500 ML 500 ML ONE (15:06)
--- NOTE | 2019-03-21 20:31 | History and Physical Report ---
History of Present Illness Date of examination: 03/21/19 Date of admission: 03/20/19 15:55 Chief complaint: Sickle pain crisis. 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 She ai also getting hydration, and pain control, as well as iron extraction therapy. Past History Past Medical History: anemia Past Surgical History: No surgical history Social history: single, lives with family Family history: no significant family history Medications and Allergies Allergies Allergy/AdvReac Type Severity Reaction Status Date / Time morphine Allergy Unknown Verified 12/09/18 15:49 oxycodone [From Percocet] Allergy Unknown Verified 12/09/18 15:49 vancomycin AdvReac Unknown Verified 12/09/18 15:49 Home Medications Medication Instructions Recorded Confirmed Last Taken Type Folic Acid [Folvite] 1 mg PO DAILY 01/24/18 03/20/19 03/20/19 History Hydroxyurea [Hydrea] 1,500 mg PO DAILY 01/24/18 03/20/19 03/20/19 History Hydromorphone HCl [Dilaudid] 4 mg PO Q4H PRN 12/10/18 03/20/19 03/20/19 History Ibuprofen [Motrin] 400 mg PO Q6H PRN 12/10/18 03/20/19 03/20/19 History oxyCODONE ER [oxyCONTIN ER] 10 mg PO Q12HR 12/10/18 03/20/19 03/20/19 History Active Meds: Active Medications Diphenhydramine HCl (Benadryl) 12.5 mg IV Q3H PRN PRN Reason: Itching Last Admin: 03/21/19 19:34 Dose: 12.5 mg Documented by: Folic Acid (Folvite) 1 mg PO QDAY [facility] Last Admin: 03/21/19 09:39 Dose: 1 mg Documented by: Heparin Sodium (Porcine) (Heparin) 5,000 unit SUB-Q Q12HR [facility] Last Admin: 03/21/19 10:12 Dose: Not Given Documented by: Hydromorphone HCl (Dilaudid) 2 mg IV Q3H PRN PRN Reason: Pain , Severe (7-10) Last Admin: 03/21/19 19:33 Dose: 2 mg Documented by: Hydroxyurea (Hydrea) 500 mg PO TID [facility] Last Admin: 03/21/19 15:10 Dose: 500 mg Documented by: Dextrose/Sodium Chloride (D5ns 0.2%) 1,000 mls @ 125 mls/hr IV DIRECT [facility] Last Admin: 03/21/19 15:09 Dose: 125 mls/hr Documented by: Deferoxamine Mesylate 3,000 mg (/ Sodium Chloride) 250 mls @ 32 mls/hr IV Q24H [facility] Last Admin: 03/20/19 22:45 Dose: 32 mls/hr Documented by: Sodium Chloride (Sodium Chloride Flush Syringe 10 Ml) 10 ml IV BID [facility] Last Admin: 03/21/19 09:38 Dose: 10 ml Documented by: Sodium Chloride (Sodium Chloride Flush Syringe 10 Ml) 10 ml IV PRN PRN PRN Reason: LINE FLUSH Last Admin: 03/21/19 06:27 Dose: 10 ml Documented by: Temazepam (Restoril) 15 mg PO QHS PRN PRN Reason: Sleep Review of Systems Constitutional: fatigue, chronic pain Breasts: deferred Gastrointestinal: constipation, jaundice Musculoskeletal: low back pain Exam - Constitutional Vitals: Temp Pulse Resp BP Pulse Ox 98.5 F 91 H 18 122/69 97 03/21/19 19:44 03/21/19 19:44 03/21/19 19:44 03/21/19 19:44 03/21/19 20:22 General appearance: Present: mild distress, well-nourished - EENT Eyes: Present: PERRL ENT: hearing intact, clear oral mucosa - Neck Neck: Present: supple, normal ROM - Respiratory Respiratory effort: normal Respiratory: bilateral: CTA - Cardiovascular Heart Sounds: Present: S1 & S2. Absent: rub, click - Extremities Extremities: pulses symmetrical, No edema Peripheral Pulses: within normal limits - Abdominal General gastrointestinal: Present: soft, non-tender, non-distended, normal bowel sounds Female genitourinary: Present: deferred - Rectal Rectal Exam: deferred - Integumentary Integumentary: Present: clear, warm, dry - Musculoskeletal Musculoskeletal: gait normal, strength equal bilaterally - Psychiatric Psychiatric: appropriate mood/affect, intact judgment & insight - Neurologic Neurologic: CNII-XII intact, moves all extremities Results - Labs CBC & Chem 7: 03/20/19 19:07 Labs: Abnormal lab results 03/20/19 03/20/19 Range/Units 19:07 19:11 Ferritin 5228.0 H (13.0-400.0) ng/mL Crossmatch See Detail Assessment and Plan - Patient Problems (1) Anemia Current Visit: No Status: Chronic Plan to address problem: Replacement transfusion. (2) Iron overload due to repeated red blood cell transfusions Current Visit: No Status: Chronic Plan to address problem: Iron extraction therapy. (3) Hypoxia Current Visit: No Status: Chronic Plan to address problem: oxygen support. (4) Dehydration Current Visit: No Status: Resolved Plan to address problem: hydration.
[2019-03-21] MEDS: Desferal 3,000 MG in NACL 0.9% 250ML 250 ML IV SCH (23:34)
[2019-03-22] MEDS: BENADRYL IV PRN ×6 (03:30→23:29)
[2019-03-22] MEDS: DILAUDID IV PRN ×6 (03:31→23:30)
[2019-03-22] MEDS: HEPARIN SUB-Q SCH ×2 (09:03→23:23)
[2019-03-22] MEDS: FOLVITE PO SCH (09:03)
[2019-03-22] MEDS: HYDREA PO SCH ×3 (09:04→20:04)
[2019-03-22] MEDS: SODIUM CHLORIDE FLUSH SYRINGE 10 ML IV SCH ×3 (09:04→23:30)
[2019-03-22] MEDS: D5NS 0.2% 1,000 ML IV SCH (16:26)
--- NOTE | 2019-03-22 19:14 | Progress Note ---
Assessment and Plan - Patient Problems (1) Anemia Current Visit: No Status: Chronic Plan to address problem: Replacement transfusion. (2) Iron overload due to repeated red blood cell transfusions Current Visit: No Status: Chronic Plan to address problem: Iron extraction therapy. (3) Hypoxia Current Visit: No Status: Chronic Plan to address problem: oxygen support. (4) Dehydration Current Visit: No Status: Resolved Plan to address problem: hydration. Subjective Date of service: 03/22/19 Interval history: Patient seen/examined, resting in bed, finished blood transfusion. will recheck labs in am, and if stable, will d/c home.Continue with iron extraction therapy. Objective - Constitutional Vitals: Vital Signs - 12hr 03/22/19 03/22/19 03/22/19 08:22 12:10 17:15 Temperature 97.3 F L 97.8 F Pulse Rate 84 80 Respiratory 16 16 Rate Blood Pressure 112/71 108/59 O2 Sat by Pulse 98 97 97 Oximetry General appearance: Present: mild distress, well-nourished - EENT Eyes: PERRL, EOM intact ENT: hearing intact, clear oral mucosa Ears: bilateral: normal - Neck Neck: supple, normal ROM - Respiratory Respiratory effort: normal Respiratory: bilateral: CTA - Breasts Breasts: deferred - Cardiovascular Rhythm: regular Heart Sounds: Present: S1 & S2. Absent: gallop, rub Extremities: pulses intact, No edema, normal color, Full ROM - Gastrointestinal General gastrointestinal: Present: soft, non-tender, non-distended, normal bowel sounds Rectal Exam: deferred - Genitourinary Female genitourinary: deferred - Integumentary Integumentary: clear, warm, dry - Musculoskeletal Musculoskeletal: 1, strength equal bilaterally - Neurologic Neurologic: moves all extremities - Psychiatric Psychiatric: memory intact, appropriate mood/affect, intact judgment & insight - Labs CBC & Chem 7: 03/20/19 19:07 Labs: Abnormal lab results 03/20/19 Range/Units 19:11 Crossmatch See Detail
[2019-03-22] MEDS: Desferal 3,000 MG in NACL 0.9% 250ML 250 ML IV SCH (20:04)
[2019-03-23] MEDS: BENADRYL IV PRN ×4 (03:14→18:11)
[2019-03-23] MEDS: DILAUDID IV PRN ×5 (03:15→18:10)
[2019-03-23] MEDS: D5NS 0.2% 1,000 ML IV SCH ×2 (07:22→16:00)
[2019-03-23 07:36] LABS: Hematocrit 26.4 % (30.3-42.9); Hemoglobin 9.2 gm/dl (10.1-14.3)
[2019-03-23] MEDS: HYDREA PO SCH ×3 (09:45→20:30)
[2019-03-23] MEDS: FOLVITE PO SCH (09:46)
[2019-03-23] MEDS: HEPARIN SUB-Q SCH (09:47)
[2019-03-23] MEDS: SODIUM CHLORIDE FLUSH SYRINGE 10 ML IV SCH (10:30)
[2019-03-23 17:30] VITALS: BP 134/84
--- NOTE | 2019-03-23 18:38 | Discharge Summary ---
Providers - Providers Date of Admission: 03/20/19 15:55 Date of discharge: 03/23/19 Attending physician: CAM PARSON [facility] Reason for admission: SCD/Pain crisis/anemia. Condition: Good Hospital course: Patient presented to the office with diffuse joint pain, unable to control, with her home meds,.She was examined, as admitted for sxs control, and management. She was found to have very low H/H, and was transfused, with 2units PRBC. She also had very high iron level, and was given extraction therapy. She is seen /examined today, new labs reviewed, and showed improvement. She denies any new issues ,or problems , at this time, and ,will therefore, be D/C home now. Disposition: - TO HOME OR SELFCARE - Discharge Diagnoses (1) Anemia Status: Chronic (2) Iron overload due to repeated red blood cell transfusions Status: Chronic (3) Hypoxia Status: Chronic Core Measure Documentation - Palliative Care Palliative Care/ Comfort Measures: Not Applicable - Core Measures Any of the following diagnoses?: none Exam - Constitutional Vitals: Temp Pulse Resp BP Pulse Ox 98.7 F 84 14 134/84 96 03/23/19 16:52 03/23/19 16:52 03/23/19 16:52 03/23/19 16:52 03/23/19 16:52 General appearance: Present: no acute distress, well-nourished - EENT Eyes: Present: PERRL ENT: hearing intact, clear oral mucosa - Neck Neck: Present: supple, normal ROM - Respiratory Respiratory effort: normal Respiratory: bilateral: CTA - Cardiovascular Heart Sounds: Present: S1 & S2. Absent: rub, click - Extremities Extremities: pulses symmetrical, No edema Peripheral Pulses: within normal limits - Abdominal General gastrointestinal: Present: soft, non-tender, non-distended, normal bowel sounds Female genitourinary: Present: deferred - Rectal Rectal Exam: deferred - Integumentary Integumentary: Present: clear, warm, dry - Musculoskeletal Musculoskeletal: gait normal, strength equal bilaterally - Psychiatric Psychiatric: appropriate mood/affect, intact judgment & insight - Neurologic Neurologic: CNII-XII intact, moves all extremities Plan Activity: no restrictions Follow up with: EVELIN ORR MD [Primary Care Provider] - 7 Days
[2019-03-23] MEDS ORDERED: FLUSH HEPARIN IV ONE (20:03)
[2019-03-23] MEDS ORDERED: TRIPLE ANTIBIOTIC TP ONE (20:04)
== END 2019-03-23 21:18 | disposition home or self-care (01) | DRG 812 ==
LOC: 3A 15:02 → UNDOADMIN 15:02 → 3A 15:55
PROVIDERS: ADMIT Internal Medicine Hematology & Oncology; ATTEND Internal Medicine Hematology & Oncology
PROC: 30233N1 Transfusion of Nonautologous Red Blood Cells into Peripheral Vein, Percutaneous Approach (ICD-10-PCS; principal; 2019-03-21)
DX: D57.00 Hb-SS disease with crisis, unspecified (principal); D64.9 Anemia, unspecified; E86.0 Dehydration; R09.02 Hypoxemia; E83.111 Hemochromatosis due to repeated red blood cell transfusions; Z88.5 Allergy status to narcotic agent; Z88.1 Allergy status to other antibiotic agents; Z79.899 Other long term (current) drug therapy
CPT/HCPCS: 36415; 82728; 85014; 85018; 85660; 86850; 86870; 86900; 86901; 86922; 94760; G0378; A6250; J0895; J1170; J1200; J1642; J1644; J1885; J7040; J7050; P9016

== ENCOUNTER 2019-04-17 14:54 | Inpatient (IN) | payer MEDICAID ==
[2019-04-17] MEDS ORDERED: HYDROmorphone 1 MG/1 ML INJ IV PRN (14:58)
[2019-04-17] MEDS ORDERED: SODIUM CHLORIDE 0.9% 500 ML 500 ML IV SCH (15:52)
[2019-04-17] MEDS: diphenhydrAMINE 50 MG/ML VIAL IV PRN ×2 (17:11→23:46)
[2019-04-17] MEDS: D5W/0.2% NACL 1,000 ML IV SCH (17:12)
[2019-04-17] MEDS ORDERED: ACETAMINOPHEN 325 MG TAB PO PRN (19:55)
[2019-04-17 20:03] LABS: Iron 128 ug/dL (37-170)
[2019-04-17 20:05] LABS: Mean Corpuscular HGB Conc 35 % (30-34); Mean Corpuscular Volume 88 fl (79-97); Platelet Count 212 K/mm3 (140-440); Red Blood Count 1.72 M/mm3 (3.65-5.03)
[2019-04-17 20:11] LABS: BUN/Creatinine Ratio 9; Blood Urea Nitrogen 6 mg/dL (7-17); Calcium 8.4 mg/dL (8.4-10.2); Hemolysis Index 17
[2019-04-17 20:12] LABS: Hematocrit 15.2 % (30.3-42.9); Hemoglobin 5.3 gm/dl (10.1-14.3)
[2019-04-17] MEDS: HYDROmorphone 1 MG/1 ML INJ IV PRN ×2 (20:16→23:47)
[2019-04-17 20:31] LABS: Total Iron Binding Capacity 122 mcg/dL (250-450)
[2019-04-17] MEDS ORDERED: POLYETHYLENE GLYCOL 3350 17 GM POWDER PO PRN (20:56)
--- NOTE | 2019-04-17 21:06 | History and Physical Report ---
History of Present Illness Date of examination: 04/17/19 Date of admission: 04/17/19 15:49 Chief complaint: Diffuse joint pain/anemia/low grade fever. History of present illness: Patient presented to the office , with complaints of pain all over, and unable ,to control at home.She was seen/examined, labs showed HGb at 5.8, and low grade fever.She is admitted , for sxs management, and control. She has chronic iron overload. She will be worked up for sepsis, and treated with hydration, blood transfusion, and pain control.Once stable, will d/c home. Past History Past Medical History: anemia Social history: single, lives with family Family history: no significant family history Medications and Allergies Allergies Allergy/AdvReac Type Severity Reaction Status Date / Time morphine Allergy Unknown Verified 12/09/18 15:49 oxycodone [From Percocet] Allergy Unknown Verified 12/09/18 15:49 vancomycin AdvReac Unknown Verified 12/09/18 15:49 Home Medications Medication Instructions Recorded Confirmed Last Taken Type Folic Acid [Folvite] 1 mg PO DAILY 01/24/18 03/20/19 03/20/19 History Hydroxyurea 1,500 mg PO DAILY 01/24/18 03/20/19 03/20/19 History Hydromorphone HCl [Dilaudid] 4 mg PO Q4H PRN 12/10/18 03/20/19 03/20/19 History Ibuprofen [Motrin] 400 mg PO Q6H PRN 12/10/18 03/20/19 03/20/19 History oxyCODONE ER [oxyCONTIN ER] 10 mg PO Q12HR 12/10/18 03/20/19 03/20/19 History Active Meds: Active Medications Acetaminophen (Tylenol) 650 mg PO Q6H PRN PRN Reason: Pain, Mild (1-3) Diphenhydramine HCl (Benadryl) 12.5 mg IV Q3H PRN PRN Reason: Itching Last Admin: 04/17/19 17:11 Dose: 12.5 mg Documented by: Folic Acid (Folvite) 1 mg PO QDAY SONAL Hydromorphone HCl (Dilaudid) 3 mg IV Q3H PRN PRN Reason: Pain , Severe (7-10) Last Admin: 04/17/19 20:16 Dose: 3 mg Documented by: Hydroxyurea (Hydroxyurea) 500 mg PO TID SONAL Dextrose/Sodium Chloride (D5ns 0.2%) 1,000 mls @ 250 mls/hr IV DIRECT SONAL Last Admin: 04/17/19 17:12 Dose: 250 mls/hr Documented by: Sodium Chloride (Nacl 0.9% 500 Ml) 500 mls @ 0 mls/hr IV ONCE SONAL Stop: 04/18/19 15:51 Ceftriaxone Sodium (Rocephin/Ns 2 Gm/100 Ml) 2 gm in 100 mls @ 200 mls/hr IV Q24HR SONAL; Protocol Ketorolac Tromethamine (Toradol) 30 mg IV Q6HR SONAL Stop: 04/19/19 06:01 Oxycodone HCl (Oxycontin) 10 mg PO Q8HR SONAL Polyethylene Glycol (Miralax 3350) 17 gm PO BID PRN PRN Reason: Constipation Sodium Chloride (Sodium Chloride Flush Syringe 10 Ml) 10 ml IV BID OSNAL Sodium Chloride (Sodium Chloride Flush Syringe 10 Ml) 10 ml IV PRN PRN PRN Reason: LINE FLUSH Review of Systems Constitutional: fever, fatigue, weakness, chronic pain Breasts: deferred Musculoskeletal: low back pain Exam - Constitutional Vitals: Temp Pulse Resp BP Pulse Ox 100.3 F H 97 H 18 114/72 93 04/17/19 18:38 04/17/19 16:43 04/17/19 20:16 04/17/19 16:49 04/17/19 16:43 General appearance: Present: mild distress, well-nourished - EENT Eyes: Present: PERRL ENT: hearing intact, clear oral mucosa - Neck Neck: Present: supple, normal ROM - Respiratory Respiratory: bilateral: diminished - Cardiovascular Heart Sounds: Present: S1 & S2. Absent: rub, click - Extremities Extremities: pulses symmetrical, No edema Peripheral Pulses: within normal limits - Abdominal General gastrointestinal: Present: soft, non-tender, non-distended, normal bowel sounds Female genitourinary: Present: deferred - Rectal Rectal Exam: deferred - Integumentary Integumentary: Present: clear, warm, dry - Musculoskeletal Musculoskeletal: gait normal, strength equal bilaterally - Psychiatric Psychiatric: appropriate mood/affect, intact judgment & insight - Neurologic Neurologic: CNII-XII intact, moves all extremities Results - Labs CBC & Chem 7: 04/17/19 Unknown 04/17/19 Unknown Labs: Abnormal lab results 04/17/19 04/17/19 04/17/19 Range/Units 20:00 Unknown Unknown WBC 18.1 H (4.5-11.0) K/mm3 RBC 1.72 L (3.65-5.03) M/mm3 Hgb 5.3 L* (10.1-14.3) gm/dl Hct 15.2 L* (30.3-42.9) % MCHC 35 H (30-34) % RDW 29.0 H (13.2-15.2) % BUN 6 L (7-17) mg/dL Glucose 132 H (65-100) mg/dL TIBC (250-450) mcg/dL Ferritin (13.0-400.0) ng/mL Crossmatch See Detail 04/17/19 04/17/19 Range/Units Unknown Unknown WBC (4.5-11.0) K/mm3 RBC (3.65-5.03) M/mm3 Hgb (10.1-14.3) gm/dl Hct (30.3-42.9) % MCHC (30-34) % RDW (13.2-15.2) % BUN (7-17) mg/dL Glucose (65-100) mg/dL TIBC 122 L (250-450) mcg/dL Ferritin 5384.0 H (13.0-400.0) ng/mL Crossmatch Assessment and Plan - Patient Problems (1) Anemia Current Visit: No Status: Chronic Plan to address problem: PRBC replacement. (2) Hypoxia Current Visit: No Status: Chronic (3) Dehydration Current Visit: No Status: Resolved Plan to address problem: hydration. (4) Fever Current Visit: No Status: Resolved Plan to address problem: work up for sepsis.present on admission. (5) Iron overload due to repeated red blood cell transfusions Current Visit: No Status: Chronic Plan to address problem: iron extraction therapy, if needed.
--- NOTE | 2019-04-17 21:17 | History and Physical Report ---
History of Present Illness Date of examination: 04/17/19 Date of admission: 04/17/19 15:49 Chief complaint: Diffuse joint pain/symptomatic anemia. Medications and Allergies Allergies Allergy/AdvReac Type Severity Reaction Status Date / Time morphine Allergy Unknown Verified 12/09/18 15:49 oxycodone [From Percocet] Allergy Unknown Verified 12/09/18 15:49 vancomycin AdvReac Unknown Verified 12/09/18 15:49 Home Medications Medication Instructions Recorded Confirmed Last Taken Type Folic Acid [Folvite] 1 mg PO DAILY 01/24/18 03/20/19 03/20/19 History Hydroxyurea 1,500 mg PO DAILY 01/24/18 03/20/19 03/20/19 History Hydromorphone HCl [Dilaudid] 4 mg PO Q4H PRN 12/10/18 03/20/19 03/20/19 History Ibuprofen [Motrin] 400 mg PO Q6H PRN 12/10/18 03/20/19 03/20/19 History oxyCODONE ER [oxyCONTIN ER] 10 mg PO Q12HR 12/10/18 03/20/19 03/20/19 History Active Meds: Active Medications Acetaminophen (Tylenol) 650 mg PO Q6H PRN PRN Reason: Pain, Mild (1-3) Diphenhydramine HCl (Benadryl) 12.5 mg IV Q3H PRN PRN Reason: Itching Last Admin: 04/17/19 17:11 Dose: 12.5 mg Documented by: Folic Acid (Folvite) 1 mg PO QDAY SONAL Hydromorphone HCl (Dilaudid) 3 mg IV Q3H PRN PRN Reason: Pain , Severe (7-10) Last Admin: 04/17/19 20:16 Dose: 3 mg Documented by: Hydroxyurea (Hydroxyurea) 500 mg PO TID SONAL Dextrose/Sodium Chloride (D5ns 0.2%) 1,000 mls @ 250 mls/hr IV DIRECT SONAL Last Admin: 04/17/19 17:12 Dose: 250 mls/hr Documented by: Sodium Chloride (Nacl 0.9% 500 Ml) 500 mls @ 0 mls/hr IV ONCE SONAL Stop: 04/18/19 15:51 Ceftriaxone Sodium (Rocephin/Ns 2 Gm/100 Ml) 2 gm in 100 mls @ 200 mls/hr IV Q24HR SONAL; Protocol Ketorolac Tromethamine (Toradol) 30 mg IV Q6HR SONAL Stop: 04/22/19 00:00 Oxycodone HCl (Oxycontin) 10 mg PO Q8HR [facility] Polyethylene Glycol (Miralax 3350) 17 gm PO BID PRN PRN Reason: Constipation Sodium Chloride (Sodium Chloride Flush Syringe 10 Ml) 10 ml IV BID SONAL Sodium Chloride (Sodium Chloride Flush Syringe 10 Ml) 10 ml IV PRN PRN PRN Reason: LINE FLUSH Exam - Constitutional Vitals: Temp Pulse Resp BP Pulse Ox 100.3 F H 97 H 18 114/72 93 04/17/19 18:38 04/17/19 16:43 04/17/19 20:16 04/17/19 16:49 04/17/19 16:43 Results - Labs CBC & Chem 7: 04/17/19 Unknown 04/17/19 Unknown Labs: Abnormal lab results 04/17/19 04/17/19 04/17/19 Range/Units 20:00 Unknown Unknown WBC 18.1 H (4.5-11.0) K/mm3 RBC 1.72 L (3.65-5.03) M/mm3 Hgb 5.3 L* (10.1-14.3) gm/dl Hct 15.2 L* (30.3-42.9) % MCHC 35 H (30-34) % RDW 29.0 H (13.2-15.2) % BUN 6 L (7-17) mg/dL Glucose 132 H (65-100) mg/dL TIBC (250-450) mcg/dL Crossmatch See Detail 04/17/19 Range/Units Unknown WBC (4.5-11.0) K/mm3 RBC (3.65-5.03) M/mm3 Hgb (10.1-14.3) gm/dl Hct (30.3-42.9) % MCHC (30-34) % RDW (13.2-15.2) % BUN (7-17) mg/dL Glucose (65-100) mg/dL TIBC 122 L (250-450) mcg/dL Crossmatch
[2019-04-17] MEDS: oxyCODONE ER 10 MG TAB PO SCH (22:42)
[2019-04-17] MEDS: HYDROXYUREA 500 MG CAP PO SCH (22:42)
[2019-04-18 00:15] LABS: Anisocytosis 1+; Basophils % (Manual) 0 % (0.0-1.8); Poikilocytosis 1+; Total Cells Counted 100
[2019-04-18 00:16] LABS: Platelet Estimate Consistent w Auto; Sickle Cells 1+; Target Cells 1+
[2019-04-18] MEDS: KETOROLAC 30 MG/1 ML INJ IV SCH ×4 (00:59→18:32)
[2019-04-18] MEDS: D5W/0.2% NACL 1,000 ML IV SCH ×3 (00:59→20:28)
[2019-04-18] MEDS: HYDROmorphone 1 MG/1 ML INJ IV PRN ×5 (04:22→21:41)
[2019-04-18] MEDS: diphenhydrAMINE 50 MG/ML VIAL IV PRN ×4 (04:23→21:40)
[2019-04-18] MEDS: oxyCODONE ER 10 MG TAB PO SCH ×3 (06:27→21:40)
[2019-04-18] MEDS ORDERED: SODIUM CHLORIDE 0.9% 250ML 250 ML ONE (06:42)
[2019-04-18] MEDS: FOLIC ACID 1 MG TAB PO SCH (09:38)
[2019-04-18] MEDS: HYDROXYUREA 500 MG CAP PO SCH ×3 (09:38→21:40)
[2019-04-18] MEDS: cefTRIAXone/NS 2 GM/100 ML 2 GM/100 ML BAG IV SCH ×2 (10:09→14:10)
[2019-04-18 17:59] LABS: Hematocrit 22.6 % (30.3-42.9); Hemoglobin 7.7 gm/dl (10.1-14.3)
--- NOTE | 2019-04-18 20:32 | Progress Note ---
Assessment and Plan - Patient Problems (1) Anemia Current Visit: No Status: Chronic Plan to address problem: PRBC replacement. s/p replacement therapy. (2) Hypoxia Current Visit: No Status: Chronic (3) Dehydration Current Visit: No Status: Resolved Plan to address problem: hydration. (4) Fever Current Visit: No Status: Resolved Plan to address problem: work up for sepsis.present on admission. (5) Iron overload due to repeated red blood cell transfusions Current Visit: No Status: Chronic Plan to address problem: iron extraction therapy, if needed. iron chelating. to start. Subjective Date of service: 04/18/19 Principal diagnosis: Sickle pain crisis. Interval history: Patient seen/examined, s/p blood transfusion. Iron , quite elevated, and will give some chelating therapy., and D/c home. Objective - Constitutional Vitals: Vital Signs - 12hr 04/18/19 04/18/19 04/18/19 08:58 09:19 10:16 Temperature 98.3 F 98.1 F 98.2 F Pulse Rate 91 H 98 H 93 H Respiratory 20 18 18 Rate Blood Pressure 106/63 109/56 105/57 O2 Sat by Pulse 92 96 93 Oximetry 04/18/19 04/18/19 04/18/19 10:46 11:16 11:46 Temperature 98.3 F 98.4 F 98.6 F Pulse Rate 100 H 88 86 Respiratory 18 18 20 Rate Blood Pressure 124/58 107/67 123/73 O2 Sat by Pulse 94 98 97 Oximetry 04/18/19 04/18/19 12:16 17:17 Temperature 97.5 F L 98.4 F Pulse Rate 88 82 Respiratory 18 18 Rate Blood Pressure 127/62 111/65 O2 Sat by Pulse 95 97 Oximetry General appearance: Present: mild distress, well-nourished - EENT Eyes: PERRL, EOM intact ENT: hearing intact, clear oral mucosa Ears: bilateral: normal - Neck Neck: supple, normal ROM - Respiratory Respiratory effort: normal Respiratory: bilateral: CTA - Breasts Breasts: deferred - Cardiovascular Rhythm: regular Heart Sounds: Present: S1 & S2. Absent: gallop, rub Extremities: pulses intact, No edema, normal color, Full ROM - Gastrointestinal General gastrointestinal: Present: soft, non-tender, non-distended, normal bowel sounds Rectal Exam: deferred - Genitourinary Female genitourinary: deferred - Integumentary Integumentary: clear, warm, dry - Musculoskeletal Musculoskeletal: 1, strength equal bilaterally - Neurologic Neurologic: moves all extremities - Psychiatric Psychiatric: memory intact, appropriate mood/affect, intact judgment & insight - Labs CBC & Chem 7: 04/18/19 Unknown 04/17/19 Unknown Labs: Abnormal lab results 04/17/19 04/17/19 04/17/19 Range/Units 20:00 Unknown Unknown Hgb (10.1-14.3) gm/dl Hct (30.3-42.9) % Lymphocytes % (Manual) 45.0 H (13.4-35.0) % Seg Neutrophils # Man 8.5 H (1.8-7.7) K/mm3 Lymphocytes # (Manual) 8.1 H (1.2-5.4) K/mm3 Monocytes # (Manual) 1.3 H (0.0-0.8) K/mm3 TIBC (250-450) mcg/dL Ferritin 5384.0 H (13.0-400.0) ng/mL Crossmatch See Detail 04/17/19 04/18/19 Range/Units Unknown Unknown Hgb 7.7 L (10.1-14.3) gm/dl Hct 22.6 L D (30.3-42.9) % Lymphocytes % (Manual) (13.4-35.0) % Seg Neutrophils # Man (1.8-7.7) K/mm3 Lymphocytes # (Manual) (1.2-5.4) K/mm3 Monocytes # (Manual) (0.0-0.8) K/mm3 TIBC 122 L (250-450) mcg/dL Ferritin (13.0-400.0) ng/mL Crossmatch
[2019-04-19] MEDS: D5W/0.2% NACL 1,000 ML IV SCH ×3 (00:30→08:40)
[2019-04-19] MEDS: KETOROLAC 30 MG/1 ML INJ IV SCH ×2 (00:30→06:10)
[2019-04-19] MEDS: HYDROmorphone 1 MG/1 ML INJ IV PRN ×6 (01:36→20:52)
[2019-04-19] MEDS: diphenhydrAMINE 50 MG/ML VIAL IV PRN ×6 (01:36→20:51)
[2019-04-19] MEDS: oxyCODONE ER 10 MG TAB PO SCH ×2 (06:04→16:39)
[2019-04-19] MEDS: HYDROXYUREA 500 MG CAP PO SCH ×3 (08:39→21:02)
[2019-04-19] MEDS: cefTRIAXone/NS 2 GM/100 ML 2 GM/100 ML BAG IV SCH (09:19)
[2019-04-19] MEDS: FOLIC ACID 1 MG TAB PO SCH (09:20)
[2019-04-19] MEDS ORDERED: DEFEROXAMINE MESYLATE IV SCH (10:00)
[2019-04-19] MEDS ORDERED: SODIUM CHLORIDE 0.9% IV SCH (10:00)
--- NOTE | 2019-04-19 20:15 | Discharge Summary ---
Providers - Providers Date of Admission: 04/17/19 15:49 Date of discharge: 04/19/19 Attending physician: CAM PARSON Primary care physician: CAM PARSON Hospitalization Reason for admission: SCD/pain crisis/anemia. Condition: Stable Hospital course: Patient seen/examined, resting in bed, records reviewed, patient just finished 1 bag of desferamine.denies any new issues at this time.pain 5/10, and agrees to discharge home.She had presented to the office ,with diffuse joint pain, and generalized weakness. her hgb was 5.8, she was admitted ,for sxs management, and control. she was transfused, and responded well. She has hx of chronic iron overload, and given 1 bag of iron chelating agent.She will be d/c home at this time, and follow up in the office. Disposition: DC-01 TO HOME OR SELFCARE - Discharge Diagnoses (1) Anemia Status: Chronic (2) Hypoxia Status: Chronic (3) Dehydration Status: Resolved (4) Fever Status: Resolved (5) Iron overload due to repeated red blood cell transfusions Status: Chronic Core Measure Documentation - Palliative Care Palliative Care/ Comfort Measures: Not Applicable - Core Measures Any of the following diagnoses?: none Exam - Constitutional Vitals: Temp Pulse Resp BP Pulse Ox 97.8 F 86 20 124/76 99 04/19/19 17:43 04/19/19 17:43 04/19/19 17:43 04/19/19 17:43 04/19/19 17:43 General appearance: Present: no acute distress, well-nourished - EENT Eyes: Present: PERRL ENT: hearing intact, clear oral mucosa - Neck Neck: Present: supple, normal ROM - Respiratory Respiratory effort: normal Respiratory: bilateral: CTA - Cardiovascular Heart Sounds: Present: S1 & S2. Absent: rub, click - Extremities Extremities: pulses symmetrical, No edema Peripheral Pulses: within normal limits - Abdominal General gastrointestinal: Present: soft, non-tender, non-distended, normal bowel sounds Female genitourinary: Present: deferred - Rectal Rectal Exam: deferred - Integumentary Integumentary: Present: clear, warm, dry - Musculoskeletal Musculoskeletal: gait normal, strength equal bilaterally - Psychiatric Psychiatric: appropriate mood/affect, intact judgment & insight - Neurologic Neurologic: CNII-XII intact, moves all extremities Plan Activity: no restrictions Diet: regular Follow up with: CAM PARSON DO [Primary Care Provider] - 7 Days
[2019-04-19] MEDS ORDERED: NEOMY 3.5 MG/BACIT 400 UNITS/POLY B 5000 UNITS/GM OINT PACKET TP ONE (20:56)
[2019-04-19 22:34] VITALS: BP 141/86
== END 2019-04-19 22:30 | disposition home or self-care (01) | DRG 812 ==
LOC: 3A 14:54 → UNDOADMIN 14:54 → 3A 15:49
PROVIDERS: ADMIT Internal Medicine Hematology & Oncology; ATTEND Internal Medicine Hematology & Oncology
PROC: 30233N1 Transfusion of Nonautologous Red Blood Cells into Peripheral Vein, Percutaneous Approach (ICD-10-PCS; principal; 2019-04-18)
DX: D57.1 Sickle-cell disease without crisis (principal); D64.9 Anemia, unspecified; E86.0 Dehydration; E83.111 Hemochromatosis due to repeated red blood cell transfusions; Z88.5 Allergy status to narcotic agent; Z88.1 Allergy status to other antibiotic agents; Z79.899 Other long term (current) drug therapy
CPT/HCPCS: 36415; 80048; 82728; 83550; 85007; 85018; 85025; 85660; 86850; 86870; 86900; 86901; 86922; 87040; 87086; G0378; A6250; J0696; J0895; J1170; J1200; J1642; J1885; J7050; P9016

== ENCOUNTER 2019-05-26 05:42 | Inpatient (IN) | payer MEDICAID ==
[2019-05-26] MEDS ORDERED: SODIUM CHLORIDE 0.9% 1000 ML IV SOLN IV ONE (08:54)
[2019-05-26] MEDS ORDERED: HYDROmorphone 1 MG/1 ML INJ IV ONE (08:56)
[2019-05-26] MEDS ORDERED: ONDANSETRON 4 MG/2 ML INJ ONE (09:08)
[2019-05-26] MEDS ORDERED: ACETAMINOPHEN 325 MG TAB PO ONE (09:19)
[2019-05-26 09:26] LABS: Mean Corpuscular HGB Conc 36 % (30-34); Mean Corpuscular Volume 96 fl (79-97); Platelet Count 172 K/mm3 (140-440); Red Blood Count 1.58 M/mm3 (3.65-5.03)
--- NOTE | 2019-05-26 09:35 | Emergency Department Report ---
HPI - General Chief Complaint: Sickle Cell Crisis Time Seen by Provider: 05/26/19 08:54 - HPI HPI: 29-year-old Lisette female presents to the emergency department with the complaint of generalized body pain and fatigue. She has a history of sickle cell disease and says "I think my hemoglobin must be very low." She has required blood transfusions in the past. Patient arrived and was found to have a fever and the patient says "I am not surprised" however she denies any chills, sweats or signs of recent fever. When the patient arrived to the emergency department she complained of some mild chest discomfort. She denies any shortness of breath, nausea, vomiting, diaphoresis. The patient takes folic acid, hydroxyurea and narcotic pain medication at home for her sickle cell disease. Her primary care physician and auditing specialist is Dr. Robins. She denies any cough, dysuria, rash, lower extremity swelling. No recent travel or sick contacts at home. ED Past Medical Hx - Past Medical History Previous Medical History?: Yes Hx Hypertension: No Hx Heart Attack/AMI: No Hx Congestive Heart Failure: No Hx Diabetes: No Hx Deep Vein Thrombosis: No Hx Pulmonary Embolism: No Hx GERD: No Hx Liver Disease: No Hx Renal Disease: No Hx Sickle Cell Disease: Yes Hx Arthritis: No Hx Headaches / Migraines: No Hx Seizures: No Hx Kidney Stones: No Hx Asthma: No Hx COPD: No Hx Tuberculosis: No Hx Dementia: No Hx HIV: No - Surgical History Past Surgical History?: Yes Hx Coronary Stent: No Hx Open Heart Surgery: No Hx Pacemaker: No Hx Internal Defibrillator: No Hx Cholecystectomy: No Hx Appendectomy: Yes Hx Breast Surgery: No Additional Surgical History: Port a cath placement. - Social History Smoking Status: Never Smoker Substance Use Type: None - Medications Home Medications: Home Medications Medication Instructions Recorded Confirmed Last Taken Type Folic Acid [Folvite] 1 mg PO DAILY 01/24/18 05/26/19 03/20/19 History Hydroxyurea 1,500 mg PO DAILY 01/24/18 05/26/19 03/20/19 History Hydromorphone HCl [Dilaudid] 4 mg PO Q4H PRN 12/10/18 05/26/19 03/20/19 History Ibuprofen [Motrin] 400 mg PO Q6H PRN 12/10/18 05/26/19 03/20/19 History oxyCODONE ER [oxyCONTIN ER] 10 mg PO Q12HR 12/10/18 05/26/19 03/20/19 History ED Review of Systems ROS: Stated complaint: SICKLE CELL CRISIS Other details as noted in HPI Constitutional: fever, other (fatigue) Eyes: denies: eye pain, vision change ENT: denies: ear pain, throat pain Respiratory: denies: cough, shortness of breath Cardiovascular: chest pain. denies: edema Gastrointestinal: denies: abdominal pain, vomiting Genitourinary: denies: dysuria, discharge Musculoskeletal: back pain, arthralgia, myalgia. denies: joint swelling Skin: denies: rash, lesions Neurological: denies: headache, weakness Physical Exam - Physical Exam Vital Signs: Vital Signs 05/26/19 05:57 Temperature 101.1 F H Pulse Rate 118 H Respiratory 18 Rate Blood Pressure 118/55 O2 Sat by Pulse 90 Oximetry Physical Exam: GENERAL: The patient is well-developed well-nourished. HEENT: Normocephalic. Atraumatic. Patient has moist mucous membranes. EYES: Extraocular motions are intact. Pupils equal reactive to light bilaterally. Pale conjunctiva. NECK: Supple. Trachea is midline. CHEST/LUNGS: Clear to auscultation. There is no respiratory distress noted. HEART/CARDIOVASCULAR: Regular. There is no tachycardia. ABDOMEN: Abdomen is soft, nontender. Patient has normal bowel sounds. There is no abdominal distention. SKIN: Skin is warm and dry. NEURO: The patient is awake, alert, and oriented. The patient is cooperative. The patient has no focal neurologic deficits. The patient has normal speech. MUSCULOSKELETAL: There is no tenderness or deformity. There is no evidence of acute injury. Mild to moderate ED Course Vital Signs 05/26/19 05:57 Temperature 101.1 F H Pulse Rate 118 H Respiratory 18 Rate Blood Pressure 118/55 O2 Sat by Pulse 90 Oximetry ED Medical Decision Making - Lab Data Result diagrams: 05/26/19 09:13 05/26/19 09:13 - EKG Data -: EKG Interpreted by Me EKG shows normal: sinus rhythm, axis, intervals, QRS complexes, ST-T waves Rate: bradycardia (105 bpm) - EKG Data When compared to previous EKG there are: previous EKG unavailable Interpretation: normal EKG (with mild tachycardia, 105 bpm) - Radiology Data Radiology results: image reviewed interpreted by me: Chest x-ray does not show any pneumonia, pleural effusions, focal consolidation, pneumothorax, or any other acute process. - Medical Decision Making This patient presents to the emergency department with some fatigue, generalized weakness. She was made a code sepsis when she was found to have fever and tachycardia. Patient was empirically treated with some Rocephin. Patient had a suspicion that she had low hemoglobin and was correct as her hemoglobin came back at 5.5. She also has a mild cytosis of 14,000, elevated reticulocyte count and a slightly elevated total bilirubin. 2 units of packed red blood cells were ordered for transfusion. No source of infection has been found. Chest x-ray does not show any pneumonia, pleural effusions, or any other acute process. I spoke to the patient's primary care physician, Dr. Robins, who has agreed to admit the patient to his service. - Differential Diagnosis anemia, sickle pain or chest crisis, Pneumonia, UTI Critical Care Time: Yes Critical care time in (mins) excluding proc time.: 31 Critical care attestation.: If time is entered above; I have spent that time in minutes in the direct care of this critically ill patient, excluding procedure time., Critical care time was spent on this patient and doing her initial evaluation, multiple re- evaluations, ordering and interpretation of labs and imaging, ordering of blood for transfusion, discussion with the patient's primary care physician. Critical Care Time: 31 minutes ED Disposition Clinical Impression: Atypical chest pain, Sickle cell crisis, Anemia requiring transfusions Anemia Qualifiers: Anemia type: unspecified type Qualified Code(s): D64.9 - Anemia, unspecified Fever Qualifiers: Fever type: unspecified Qualified Code(s): R50.9 - Fever, unspecified Disposition: 09 OP ADMIT IP TO THIS HOSP Is pt being admited?: Yes Condition: Serious Time of Disposition: 13:00
[2019-05-26 09:37] LABS: Alanine Aminotransferase 43 units/L (7-56); Albumin 4.1 g/dL (3.9-5); BUN/Creatinine Ratio 20; Blood Urea Nitrogen 14 mg/dL (7-17); Calcium 8.9 mg/dL (8.4-10.2); Hemolysis Index 13
[2019-05-26 09:45] LABS: Hematocrit 15.2 % (30.3-42.9); Hemoglobin 5.5 gm/dl (10.1-14.3); Red Cell Distribution Width 33.1 % (13.2-15.2)
[2019-05-26] MEDS ORDERED: SODIUM CHLORIDE 0.9% 500 ML 500 ML IV ONE (09:49)
--- NOTE | 2019-05-26 10:12 | XRay Report ---
CHEST 1 VIEW INDICATION / CLINICAL INFORMATION: CP. COMPARISON: 12/09/2018 FINDINGS: SUPPORT DEVICES: Port-A-Cath appears unchanged HEART / MEDIASTINUM: Unchanged LUNGS / PLEURA: The lungs appear unchanged. Interstitial disease persists.. No pneumothorax. ADDITIONAL FINDINGS: No significant additional findings. IMPRESSION: 1. No significant change. Signer Name: Jacky Cervantes MD Signed: 05/26/2019 10:07 AM Workstation Name: [email or web address]
[2019-05-26 11:04] LABS: Anisocytosis 3+; Band Neutrophils # (Manual) 0.3 K/mm3; Basophils % (Manual) 0 % (0.0-1.8); Eosinophils % (Manual) 0 % (0.0-4.3); Total Cells Counted 100
[2019-05-26 11:05] LABS: Sickle Cells 1+; Target Cells 1+
[2019-05-26 11:06] LABS: Dimorphic RBC Yes; Hypochromasia 1+
[2019-05-26 11:07] LABS: Burr Cells Few; Platelet Estimate Consistent w Auto
[2019-05-26] MEDS: HYDROmorphone 1 MG/1 ML INJ IV PRN ×4 (11:29→21:27)
[2019-05-26] MEDS: D5W/0.2% NACL 1,000 ML IV SCH ×4 (11:30→21:26)
[2019-05-26] MEDS ORDERED: cefTRIAXone/NS 1 GM/50 ML 1 GM/50 ML BAG IV ONE (11:32)
[2019-05-26] MEDS: diphenhydrAMINE 50 MG/ML VIAL IV PRN ×3 (14:33→21:26)
[2019-05-26 15:25] LABS: Bilirubin,Urine NEG (Negative); Blood,Urine NEG (Negative); Color,Urine Straw (Yellow); Protein,Urine <15 mg/dL mg/dL (Negative); Urobilinogen,Urine < 2.0 mg/dL (<2.0); WBC,Urine < 1.0 /HPF (0.0-6.0)
--- NOTE | 2019-05-26 17:20 | History and Physical Report ---
History of Present Illness Date of examination: 05/26/19 Date of admission: 05/26/19 10:57 Chief complaint: Diffuse joint pain/SOB. History of present illness: Patient seen/examined, resting in bed. Patient presented to the ED, with CC of diffuse joint pain, unable to control at home. Patient was admitted , for sxs management/control.She will get pain meds, hydration, blood transfusion, and once stable, will d/c home. For high wbc, cultures drawn, IV ABX started , until cultures resulted. Past History Past Medical History: anemia Social history: no significant social history, single, lives with family Family history: no significant family history Medications and Allergies Allergies Allergy/AdvReac Type Severity Reaction Status Date / Time morphine Allergy Unknown Verified 12/09/18 15:49 oxycodone [From Percocet] Allergy Unknown Verified 12/09/18 15:49 vancomycin AdvReac Unknown Verified 12/09/18 15:49 Home Medications Medication Instructions Recorded Confirmed Last Taken Type Folic Acid [Folvite] 1 mg PO DAILY 01/24/18 05/26/19 03/20/19 History Hydroxyurea 1,500 mg PO DAILY 01/24/18 05/26/19 03/20/19 History Hydromorphone HCl [Dilaudid] 4 mg PO Q4H PRN 12/10/18 05/26/19 03/20/19 History Ibuprofen [Motrin] 400 mg PO Q6H PRN 12/10/18 05/26/19 03/20/19 History oxyCODONE ER [oxyCONTIN ER] 10 mg PO Q12HR 12/10/18 05/26/19 03/20/19 History Active Meds: Active Medications Diphenhydramine HCl (Benadryl) 12.5 mg IV Q3H PRN PRN Reason: Itching Last Admin: 05/26/19 14:33 Dose: 12.5 mg Documented by: Folic Acid (Folvite) 1 mg PO DAILY SONAL Hydromorphone HCl (Dilaudid) 3 mg IV Q3H PRN PRN Reason: Pain , Severe (7-10) Last Admin: 05/26/19 14:33 Dose: 3 mg Documented by: Dextrose/Sodium Chloride (D5ns 0.2%) 1,000 mls @ 250 mls/hr IV DIRECT SONAL Last Admin: 05/26/19 14:35 Dose: 250 mls/hr Documented by: Oxycodone HCl (Oxycontin) 10 mg PO Q12HR [facility] Review of Systems Constitutional: fever, fatigue, chronic pain Breasts: deferred Musculoskeletal: low back pain Exam - Constitutional Vitals: Temp Pulse Resp BP Pulse Ox 98.4 F 91 H 18 104/61 92 05/26/19 12:35 05/26/19 12:35 05/26/19 12:35 05/26/19 12:35 05/26/19 12:35 General appearance: Present: mild distress, well-nourished - EENT Eyes: Present: PERRL ENT: hearing intact, clear oral mucosa - Neck Neck: Present: supple, normal ROM - Respiratory Respiratory effort: normal Respiratory: bilateral: CTA - Cardiovascular Heart Sounds: Present: S1 & S2. Absent: rub, click - Extremities Extremities: pulses symmetrical, No edema Peripheral Pulses: within normal limits - Abdominal General gastrointestinal: Present: soft, non-tender, non-distended, normal bowel sounds Female genitourinary: Present: deferred - Rectal Rectal Exam: deferred - Integumentary Integumentary: Present: clear, warm, dry - Musculoskeletal Musculoskeletal: gait normal, strength equal bilaterally - Psychiatric Psychiatric: appropriate mood/affect, intact judgment & insight - Neurologic Neurologic: CNII-XII intact, moves all extremities Results - Labs CBC & Chem 7: 05/26/19 09:13 05/26/19 09:13 Labs: Abnormal lab results 05/26/19 05/26/19 05/26/19 Range/Units 09:13 09:13 09:27 WBC 14.0 H (4.5-11.0) K/mm3 RBC 1.58 L (3.65-5.03) M/mm3 Hgb 5.5 L* (10.1-14.3) gm/dl Hct 15.2 L* (30.3-42.9) % MCH 35 H (28-32) pg MCHC 36 H (30-34) % RDW 33.1 H (13.2-15.2) % Monocytes % (Manual) 9.0 H (0.0-7.3) % Nucleated RBC % 7.0 H (0.0-0.9) % Seg Neutrophils # Man 8.3 H (1.8-7.7) K/mm3 Monocytes # (Manual) 1.3 H (0.0-0.8) K/mm3 Percent Retic 14.18 H (0.78-2.58) % Sodium 131 L (137-145) mmol/L Carbon Dioxide 20 L (22-30) mmol/L Glucose 140 H (65-100) mg/dL Total Bilirubin 3.70 H (0.1-1.2) mg/dL AST 114 H (5-40) units/L Ur Specific [place] (1.003-1.030) Crossmatch See Detail 05/26/19 Range/Units Unknown WBC (4.5-11.0) K/mm3 RBC (3.65-5.03) M/mm3 Hgb (10.1-14.3) gm/dl Hct (30.3-42.9) % MCH (28-32) pg MCHC (30-34) % RDW (13.2-15.2) % Monocytes % (Manual) (0.0-7.3) % Nucleated RBC % (0.0-0.9) % Seg Neutrophils # Man (1.8-7.7) K/mm3 Monocytes # (Manual) (0.0-0.8) K/mm3 Percent Retic (0.78-2.58) % Sodium (137-145) mmol/L Carbon Dioxide (22-30) mmol/L Glucose (65-100) mg/dL Total Bilirubin (0.1-1.2) mg/dL AST (5-40) units/L Ur Specific [place] 1.002 L (1.003-1.030) Crossmatch Assessment and Plan - Patient Problems (1) Anemia requiring transfusions Current Visit: Yes Status: Acute Plan to address problem: transfusion. (2) Fever Current Visit: Yes Status: Acute Qualifiers: Fever type: unspecified Qualified Code(s): R50.9 - Fever, unspecified Plan to address problem: full w/up., IV ABX. (3) Sickle cell crisis Current Visit: Yes Status: Acute Plan to address problem: Pain control. (4) Anemia Current Visit: Yes Status: Chronic Qualifiers: Anemia type: unspecified type Qualified Code(s): D64.9 - Anemia, unspecified Plan to address problem: supportive care.
[2019-05-26] MEDS ORDERED: SODIUM CHLORIDE 0.9% 500 ML 500 ML IV NR (17:24)
[2019-05-26] MEDS ORDERED: POLYETHYLENE GLYCOL 3350 17 GM POWDER PO PRN (17:26)
[2019-05-26] MEDS ORDERED: ONDANSETRON 4 MG/2 ML INJ IV ONE (18:19)
[2019-05-26 20:33] LABS: Iron 125 ug/dL (37-170)
[2019-05-26 20:51] LABS: Total Iron Binding Capacity 99 mcg/dL (250-450)
[2019-05-26] MEDS: oxyCODONE ER 10 MG TAB PO SCH (21:26)
[2019-05-27] MEDS: D5W/0.2% NACL 1,000 ML IV SCH ×4 (00:38→23:08)
[2019-05-27] MEDS: HYDROmorphone 1 MG/1 ML INJ IV PRN ×7 (00:40→22:45)
[2019-05-27] MEDS: diphenhydrAMINE 50 MG/ML VIAL IV PRN ×7 (00:40→22:46)
[2019-05-27] MEDS: FOLIC ACID 1 MG TAB PO SCH (10:03)
[2019-05-27] MEDS: oxyCODONE ER 10 MG TAB PO SCH ×2 (10:03→21:31)
[2019-05-27] MEDS ORDERED: SODIUM CHLORIDE 0.9% 500 ML 500 ML ONE (11:34)
[2019-05-27] MEDS: SODIUM CHLORIDE 0.9% 500 ML 500 ML IV SCH (12:04)
--- NOTE | 2019-05-27 19:42 | Progress Note ---
Assessment and Plan - Patient Problems (1) Anemia requiring transfusions Current Visit: Yes Status: Acute Plan to address problem: transfusion. (2) Fever Current Visit: Yes Status: Acute Qualifiers: Fever type: unspecified Qualified Code(s): R50.9 - Fever, unspecified Plan to address problem: full w/up., IV ABX. (3) Sickle cell crisis Current Visit: Yes Status: Acute Plan to address problem: Pain control. (4) Anemia Current Visit: Yes Status: Chronic Qualifiers: Anemia type: unspecified type Qualified Code(s): D64.9 - Anemia, unspecified Plan to address problem: supportive care. Subjective Date of service: 05/27/19 Interval history: Patient seen/examined, resting in bed, tolerating blood transfusion ok. will do DESF before d/c.IV ABX was not given , as ordered.will start today. Objective - Constitutional Vitals: Vital Signs - 12hr 05/27/19 05/27/19 05/27/19 09:34 11:34 12:20 Temperature 99.2 F 99.2 F Pulse Rate 98 H 100 H Respiratory 19 18 Rate Blood Pressure 121/56 121/56 O2 Sat by Pulse 93 94 Oximetry 05/27/19 05/27/19 05/27/19 12:35 13:05 13:35 Temperature 99 F 97.4 F L 98.2 F Pulse Rate 100 H 96 H 94 H Respiratory 18 18 18 Rate Blood Pressure 102/55 101/63 122/70 O2 Sat by Pulse 95 99 98 Oximetry 05/27/19 05/27/19 05/27/19 14:05 14:35 16:25 Temperature 98.9 F 98 F 98.8 F Pulse Rate 94 H 94 H 95 H Respiratory 16 18 18 Rate Blood Pressure 119/65 104/55 108/56 O2 Sat by Pulse 99 99 99 Oximetry 05/27/19 05/27/19 05/27/19 16:40 17:10 17:14 Temperature 98.2 F 98 F 98.6 F Pulse Rate 92 H 93 H 93 H Respiratory 18 18 19 Rate Blood Pressure 114/61 117/71 117/71 O2 Sat by Pulse 93 93 94 Oximetry 05/27/19 05/27/19 17:40 18:10 Temperature 98.2 F 98 F Pulse Rate 90 95 H Respiratory 18 Rate Blood Pressure 115/60 115/67 O2 Sat by Pulse 18 L 99 Oximetry General appearance: Present: mild distress, well-nourished - EENT Eyes: PERRL, EOM intact ENT: hearing intact, clear oral mucosa Ears: bilateral: normal - Neck Neck: supple, normal ROM - Respiratory Respiratory effort: normal Respiratory: bilateral: CTA - Breasts Breasts: deferred - Cardiovascular Rhythm: regular Heart Sounds: Present: S1 & S2. Absent: gallop, rub Extremities: pulses intact, No edema, normal color, Full ROM - Gastrointestinal General gastrointestinal: Present: soft, non-tender, non-distended, normal bowel sounds Rectal Exam: deferred - Genitourinary Female genitourinary: deferred - Integumentary Integumentary: clear, warm, dry - Musculoskeletal Musculoskeletal: 1, strength equal bilaterally - Neurologic Neurologic: moves all extremities - Psychiatric Psychiatric: memory intact, appropriate mood/affect, intact judgment & insight - Labs CBC & Chem 7: 05/26/19 09:13 05/26/19 09:13 Labs: Abnormal lab results 05/26/19 05/26/19 05/26/19 Range/Units 09:27 19:46 19:46 TIBC 99 L (250-450) mcg/dL Ferritin 5657.0 H (13.0-400.0) ng/mL Crossmatch See Detail
[2019-05-27] MEDS: SODIUM CHLORIDE 0.9% IV SCH (21:31)
[2019-05-27] MEDS: DEFEROXAMINE MESYLATE IV SCH (21:31)
[2019-05-28] MEDS: HYDROmorphone 1 MG/1 ML INJ IV PRN ×7 (03:09→21:21)
[2019-05-28] MEDS: diphenhydrAMINE 50 MG/ML VIAL IV PRN ×6 (03:10→21:21)
[2019-05-28] MEDS: D5W/0.2% NACL 1,000 ML IV SCH ×5 (03:16→20:27)
[2019-05-28 05:57] LABS: Hematocrit 22.8 % (30.3-42.9); Hemoglobin 8.1 gm/dl (10.1-14.3); Mean Corpuscular HGB Conc 35 % (30-34); Mean Corpuscular Volume 94 fl (79-97); Platelet Count 216 K/mm3 (140-440); Red Blood Count 2.44 M/mm3 (3.65-5.03)
[2019-05-28 06:07] LABS: Red Cell Distribution Width 28.9 % (13.2-15.2)
[2019-05-28 07:02] LABS: Anisocytosis 3+; Basophils % (Manual) 0 % (0.0-1.8); Total Cells Counted 100
[2019-05-28 07:03] LABS: Schistocytes Few; Sickle Cells 2+; Stomatocytes Few; Target Cells Few
[2019-05-28 07:04] LABS: Dimorphic RBC Yes; Platelet Estimate Consistent w Auto
[2019-05-28] MEDS: cefTRIAXone/NS 1 GM/50 ML 1 GM/50 ML BAG IV SCH (10:00)
[2019-05-28] MEDS: FOLIC ACID 1 MG TAB PO SCH (10:03)
[2019-05-28] MEDS: oxyCODONE ER 10 MG TAB PO SCH ×2 (10:40→21:22)
--- NOTE | 2019-05-28 17:54 | Progress Note ---
Assessment and Plan - Patient Problems (1) Anemia requiring transfusions Current Visit: Yes Status: Acute Plan to address problem: transfusion. (2) Fever Current Visit: Yes Status: Acute Qualifiers: Fever type: unspecified Qualified Code(s): R50.9 - Fever, unspecified Plan to address problem: full w/up., IV ABX. (3) Sickle cell crisis Current Visit: Yes Status: Acute Plan to address problem: Pain control. (4) Anemia Current Visit: Yes Status: Chronic Qualifiers: Anemia type: unspecified type Qualified Code(s): D64.9 - Anemia, unspecified Plan to address problem: supportive care. Subjective Date of service: 05/28/19 Principal diagnosis: SCD/Pain crisis, anemia. Interval history: Patient seen/examined, resting in bed, tolerating blood transfusion ok. will do DESF before d/c.IV ABX was not given , as ordered.will start today. Patient seen/examined, resting in bed, labs /records reviewed, case d/w patient, will do h/h, and if hgb low, will give additional 1unit PRBc, before discharge. Objective - Constitutional Vitals: Vital Signs - 12hr 05/28/19 05/28/19 05/28/19 06:25 06:55 12:20 Temperature 98.4 F Pulse Rate 84 Respiratory 17 17 18 Rate Blood Pressure 101/57 O2 Sat by Pulse 95 Oximetry General appearance: Present: mild distress, well-nourished - EENT Eyes: PERRL, EOM intact ENT: hearing intact, clear oral mucosa Ears: bilateral: normal - Neck Neck: supple, normal ROM - Respiratory Respiratory effort: normal Respiratory: bilateral: CTA - Breasts Breasts: deferred - Cardiovascular Rhythm: regular Heart Sounds: Present: S1 & S2. Absent: gallop, rub Extremities: pulses intact, No edema, normal color, Full ROM - Gastrointestinal General gastrointestinal: Present: soft, non-tender, non-distended, normal bowel sounds Rectal Exam: deferred - Genitourinary Female genitourinary: deferred - Integumentary Integumentary: clear, warm, dry - Musculoskeletal Musculoskeletal: 1, strength equal bilaterally - Neurologic Neurologic: moves all extremities - Psychiatric Psychiatric: memory intact, appropriate mood/affect, intact judgment & insight - Labs CBC & Chem 7: 05/28/19 05:32 05/26/19 09:13 Labs: Abnormal lab results 05/26/19 05/28/19 Range/Units 09:27 05:32 WBC 12.7 H (4.5-11.0) K/mm3 RBC 2.44 L (3.65-5.03) M/mm3 Hgb 8.1 L (10.1-14.3) gm/dl Hct 22.8 L D (30.3-42.9) % MCH 33 H (28-32) pg MCHC 35 H (30-34) % RDW 28.9 H (13.2-15.2) % Seg Neuts % (Manual) 24.0 L (40.0-70.0) % Lymphocytes % (Manual) 62.0 H (13.4-35.0) % Eosinophils % (Manual) 7.0 H (0.0-4.3) % Lymphocytes # (Manual) 7.9 H (1.2-5.4) K/mm3 Monocytes # (Manual) 0.9 H (0.0-0.8) K/mm3 Eosinophils # (Manual) 0.9 H (0.0-0.4) K/mm3 Crossmatch See Detail
[2019-05-28] MEDS: DEFEROXAMINE MESYLATE IV SCH (20:55)
[2019-05-28] MEDS: SODIUM CHLORIDE 0.9% IV SCH (20:55)
[2019-05-29] MEDS: HYDROmorphone 1 MG/1 ML INJ IV PRN ×8 (00:15→21:57)
[2019-05-29] MEDS: D5W/0.2% NACL 1,000 ML IV SCH ×7 (00:15→23:09)
[2019-05-29] MEDS: diphenhydrAMINE 50 MG/ML VIAL IV PRN ×8 (00:15→21:57)
[2019-05-29 05:40] LABS: Hematocrit 22.7 % (30.3-42.9)
[2019-05-29] MEDS: cefTRIAXone/NS 1 GM/50 ML 1 GM/50 ML BAG IV SCH (09:28)
[2019-05-29] MEDS: FOLIC ACID 1 MG TAB PO SCH (09:28)
[2019-05-29] MEDS: oxyCODONE ER 10 MG TAB PO SCH ×2 (09:28→21:57)
[2019-05-29] MEDS ORDERED: SODIUM CHLORIDE 0.9% 500 ML 500 ML IV NR (12:00)
--- NOTE | 2019-05-29 21:59 | Discharge Summary ---
Providers - Providers Date of Admission: 05/26/19 10:57 Date of discharge: 05/30/19 Attending physician: CAM PARSON Primary care physician: CAM PARSON Hospitalization Reason for admission: anemia, dehydration, SCD. Condition: Fair Hospital course: Patient presented to the ER ,with CC as above. She was not able to control her sxs at home, hence the ER visit. she jacqueline admitted to the hospital, for sxs management/control.She received some PRBC transfusion replacements. She was hydrated. She was also given Desf, for chronic iron overload. Disposition: DC-01 TO HOME OR SELFCARE - Discharge Diagnoses (1) Anemia requiring transfusions Status: Chronic (2) Fever Status: Resolved Qualifiers: Fever type: unspecified Qualified Code(s): R50.9 - Fever, unspecified (3) Sickle cell crisis Status: Resolved (4) Anemia Status: Chronic Qualifiers: Anemia type: unspecified type Qualified Code(s): D64.9 - Anemia, unspecified Core Measure Documentation - Palliative Care Palliative Care/ Comfort Measures: Not Applicable - Core Measures Any of the following diagnoses?: none Exam - Constitutional Vitals: Temp Pulse Resp BP Pulse Ox 98.8 F 95 H 19 113/55 97 05/29/19 16:33 05/29/19 16:33 05/29/19 16:33 05/29/19 16:33 05/29/19 16:33 General appearance: Present: no acute distress, well-nourished - EENT Eyes: Present: PERRL ENT: hearing intact, clear oral mucosa - Neck Neck: Present: supple, normal ROM - Respiratory Respiratory effort: normal Respiratory: bilateral: CTA - Cardiovascular Heart Sounds: Present: S1 & S2. Absent: rub, click - Extremities Extremities: pulses symmetrical, No edema Peripheral Pulses: within normal limits - Abdominal General gastrointestinal: Present: soft, non-tender, non-distended, normal bowel sounds Female genitourinary: Present: deferred - Rectal Rectal Exam: deferred - Integumentary Integumentary: Present: clear, warm, dry - Musculoskeletal Musculoskeletal: gait normal, strength equal bilaterally - Psychiatric Psychiatric: appropriate mood/affect, intact judgment & insight - Neurologic Neurologic: CNII-XII intact, moves all extremities Plan Activity: no restrictions Diet: regular Follow up with: CAM PARSON DO [Primary Care Provider] - 3-5 Days
[2019-05-29] MEDS: SODIUM CHLORIDE 0.9% IV SCH (23:00)
[2019-05-29] MEDS: DEFEROXAMINE MESYLATE IV SCH (23:00)
[2019-05-30] MEDS: HYDROmorphone 1 MG/1 ML INJ IV PRN ×5 (01:18→16:44)
[2019-05-30] MEDS: diphenhydrAMINE 50 MG/ML VIAL IV PRN ×6 (01:18→16:46)
[2019-05-30] MEDS: D5W/0.2% NACL 1,000 ML IV SCH (05:24)
[2019-05-30] MEDS: SODIUM CHLORIDE 0.9% 500 ML 500 ML IV SCH (08:59)
[2019-05-30] MEDS: cefTRIAXone/NS 1 GM/50 ML 1 GM/50 ML BAG IV SCH (10:00)
[2019-05-30] MEDS: FOLIC ACID 1 MG TAB PO SCH (13:00)
[2019-05-30] MEDS: oxyCODONE ER 10 MG TAB PO SCH (13:01)
[2019-05-30 18:03] VITALS: BP 112/63
[2019-05-30] MEDS ORDERED: BACITRACIN ZINC OINT 28.4 GM TP SCH (22:00)
== END 2019-05-30 18:00 | disposition home or self-care (01) | DRG 812 ==
LOC: ED 05:42 → 3A 10:57
PROVIDERS: ADMIT Internal Medicine Hematology & Oncology; ATTEND Internal Medicine Hematology & Oncology
PROC: 30233N1 Transfusion of Nonautologous Red Blood Cells into Peripheral Vein, Percutaneous Approach (ICD-10-PCS; principal; 2019-05-27)
DX: D57.00 Hb-SS disease with crisis, unspecified (principal); R07.89 Other chest pain; D64.9 Anemia, unspecified; R50.9 Fever, unspecified; E86.0 Dehydration; Z88.5 Allergy status to narcotic agent; Z88.1 Allergy status to other antibiotic agents; Z79.899 Other long term (current) drug therapy; Z90.49 Acquired absence of other specified parts of digestive tract
CPT/HCPCS: 36415; 71045; 80053; 81001; 82140; 82728; 83550; 84484; 84703; 85007; 85014; 85018; 85025; 85045; 85660; 86850; 86870; 86900; 86901; 86922; 87040; 87116; 93005; 93010; 96374; 96375; G0378; J0696; J0895; J1170; J1200; J1642; J2405; J7030; J7040; J7050; P9016

== ENCOUNTER 2019-10-31 13:42 | Inpatient (IN) | payer MEDICAID ==
[2019-10-31] MEDS ORDERED: HYDROmorphone 1 MG/1 ML INJ IV PRN (13:55)
[2019-10-31] MEDS ORDERED: ACETAMINOPHEN 325 MG TAB PO PRN (13:55)
[2019-10-31 19:15] LABS: Hematocrit 16.4 % (30.3-42.9); Hemoglobin 5.9 gm/dl (10.1-14.3)
[2019-10-31] MEDS ORDERED: SODIUM CHLORIDE 0.9% 500 ML 500 ML IV NR (19:54)
[2019-10-31] MEDS: diphenhydrAMINE 50 MG/ML VIAL IV PRN ×2 (21:09→23:52)
[2019-10-31] MEDS: D5W/0.2% NACL 1,000 ML IV SCH (22:50)
[2019-10-31] MEDS ORDERED: POLYETHYLENE GLYCOL 3350 17 GM POWDER PO PRN (22:51)
--- NOTE | 2019-10-31 22:59 | History and Physical Report ---
History of Present Illness Date of examination: 10/31/19 Date of admission: 10/31/19 13:55 Chief complaint: SCD/pain crisis/anemia, with sxs. History of present illness: Patient presented to the office , with CC of diffuse joint pain, and sob. latest lab 6.5, and repeated , now 5.4. patient admitted, for sxs management/control. She will get blood transfusion, pain control, iron extraction therapy, for chronic iron overload.Once stable, she will be d/c home. Past History Past Medical History: anemia Social history: single, lives with family Family history: no significant family history Medications and Allergies Allergies Allergy/AdvReac Type Severity Reaction Status Date / Time morphine Allergy Unknown Verified 12/09/18 15:49 oxycodone [From Percocet] Allergy Unknown Verified 12/09/18 15:49 vancomycin AdvReac Unknown Verified 12/09/18 15:49 Home Medications Medication Instructions Recorded Confirmed Last Taken Type Folic Acid [Folvite] 1 mg PO DAILY 01/24/18 08/08/19 06/26/19 22:00 History Hydroxyurea 1,500 mg PO DAILY 01/24/18 08/08/19 06/27/19 22:00 History Hydromorphone HCl [Dilaudid] 4 mg PO Q4H PRN 12/10/18 08/08/19 06/25/19 15:00 History Ibuprofen [Motrin] 400 mg PO Q6H PRN 12/10/18 08/08/19 06/27/19 09:00 History oxyCODONE ER [oxyCONTIN ER] 10 mg PO Q12HR 12/10/18 08/08/19 06/26/19 22:00 History Active Meds: Active Medications Acetaminophen (Tylenol) 650 mg PO Q6H PRN PRN Reason: Pain MILD(1-3) Diphenhydramine HCl (Benadryl) 12.5 mg IV Q3H PRN PRN Reason: Itching Last Admin: 10/31/19 21:09 Dose: 12.5 mg Documented by: Folic Acid (Folvite) 1 mg PO QDAY SONAL Hydromorphone HCl (Dilaudid) 2 mg IV Q3H PRN PRN Reason: Pain , Severe (7-10) Last Admin: 10/31/19 21:03 Dose: 2 mg Documented by: Dextrose/Sodium Chloride (D5ns 0.2%) 1,000 mls @ 250 mls/hr IV DIRECT SONAL Last Admin: 10/31/19 22:50 Dose: 250 mls/hr Documented by: Sodium Chloride (Nacl 0.9% 500 Ml) 500 mls @ 0 mls/hr IV ONCE NR Stop: 11/01/19 06:00 Polyethylene Glycol (Miralax 3350) 17 gm PO BID PRN PRN Reason: Constipation Sodium Chloride (Sodium Chloride Flush Syringe 10 Ml) 10 ml IV BID SONAL Sodium Chloride (Sodium Chloride Flush Syringe 10 Ml) 10 ml IV PRN PRN PRN Reason: LINE FLUSH Review of Systems Constitutional: chronic pain Breasts: deferred Respiratory: shortness of breath, dyspnea on exertion, home oxygen Musculoskeletal: low back pain Neurological: weakness, syncope Exam - Constitutional Vitals: Temp Pulse Resp BP Pulse Ox 99.3 F 108 H 18 98/56 92 10/31/19 19:36 10/31/19 19:36 10/31/19 21:03 10/31/19 19:36 10/31/19 19:58 General appearance: Present: mild distress, well-nourished - EENT Eyes: Present: PERRL ENT: hearing intact, clear oral mucosa - Neck Neck: Present: supple, normal ROM - Respiratory Respiratory effort: normal Respiratory: bilateral: diminished - Cardiovascular Heart Sounds: Present: S1 & S2. Absent: rub, click - Extremities Extremities: pulses symmetrical, No edema Peripheral Pulses: within normal limits - Abdominal General gastrointestinal: Present: soft, non-tender, non-distended, normal bowel sounds Female genitourinary: Present: deferred - Rectal Rectal Exam: deferred - Integumentary Integumentary: Present: clear, warm, dry - Musculoskeletal Musculoskeletal: gait normal, strength equal bilaterally - Psychiatric Psychiatric: appropriate mood/affect, intact judgment & insight - Neurologic Neurologic: CNII-XII intact, moves all extremities Results - Labs CBC & Chem 7: 10/31/19 18:29 Labs: Abnormal lab results 10/31/19 10/31/19 10/31/19 Range/Units 18:29 18:29 20:32 Hgb 5.9 L* (10.1-14.3) gm/dl Hct 16.4 L* (30.3-42.9) % Percent Retic 19.78 H (0.78-2.58) % Ferritin > 2000.0 H (13.0-400.0) ng/mL Crossmatch See Detail Assessment and Plan - Patient Problems (1) Sickle cell pain crisis Current Visit: No Status: Acute Plan to address problem: pain control. (2) Anemia Current Visit: No Status: Chronic Qualifiers: Anemia type: unspecified type Qualified Code(s): D64.9 - Anemia, unspecified Plan to address problem: see below. (3) Anemia requiring transfusions Current Visit: No Status: Chronic Plan to address problem: replacement transfusion. (4) Hypoxia Current Visit: No Status: Chronic Plan to address problem: oxygen. (5) Iron overload due to repeated red blood cell transfusions Current Visit: No Status: Chronic Plan to address problem: iron extraction therapy.
[2019-10-31] MEDS: HYDROmorphone 2 MG/1 ML INJ IV PRN (23:53)
[2019-11-01] MEDS: diphenhydrAMINE 50 MG/ML VIAL IV PRN ×5 (03:07→21:57)
[2019-11-01] MEDS: HYDROmorphone 2 MG/1 ML INJ IV PRN ×5 (03:08→21:56)
[2019-11-01] MEDS: D5W/0.2% NACL 1,000 ML IV SCH (03:12)
[2019-11-01 03:45] LABS: Bilirubin,Urine NEG (Negative); Blood,Urine SM (Negative); Color,Urine Yellow (Yellow); Protein,Urine <15 mg/dL mg/dL (Negative); Urobilinogen,Urine < 2.0 mg/dL (<2.0); WBC,Urine < 1.0 /HPF (0.0-6.0)
[2019-11-01] MEDS: FOLIC ACID 1 MG TAB PO SCH (09:33)
[2019-11-01] MEDS ORDERED: SODIUM CHLORIDE 0.9% 1000 ML 1,000 ML ONE (11:20)
[2019-11-01 14:46] LABS: Hematocrit 23.3 % (30.3-42.9); Hemoglobin 8.4 gm/dl (10.1-14.3)
[2019-11-01] MEDS: DEFEROXAMINE MESYLATE IV SCH (15:46)
[2019-11-01] MEDS: SODIUM CHLORIDE 0.9% IV SCH (15:46)
--- NOTE | 2019-11-01 22:43 | Progress Note ---
Assessment and Plan - Patient Problems (1) Sickle cell pain crisis Current Visit: No Status: Acute Plan to address problem: pain control. (2) Anemia Current Visit: No Status: Chronic Qualifiers: Anemia type: unspecified type Qualified Code(s): D64.9 - Anemia, unspecified Plan to address problem: see below. (3) Anemia requiring transfusions Current Visit: No Status: Chronic Plan to address problem: replacement transfusion. (4) Hypoxia Current Visit: No Status: Chronic Plan to address problem: oxygen. (5) Iron overload due to repeated red blood cell transfusions Current Visit: No Status: Chronic Plan to address problem: iron extraction therapy. Subjective Date of service: 11/01/19 Interval history: Patient seen/examined, resting in bed, labs/records reviewed, and ok, post 2units PRBCs transfusion. pain is rated today , at 6-7/10, an improvement following transfusion, and pain adjustment.This is day #2 of 4 of [facility], and once completed, will d/c home. Objective - Constitutional Vitals: Vital Signs - 12hr 11/01/19 11/01/19 11/01/19 11:29 11:44 11:55 Temperature 98.6 F 97.8 F 97.8 F Pulse Rate 93 H 87 93 H Respiratory 20 20 18 Rate Blood Pressure 112/67 109/72 124/78 O2 Sat by Pulse 98 99 97 Oximetry 11/01/19 11/01/19 11/01/19 12:14 12:44 13:04 Temperature 98.2 F 97.8 F 98.6 F Pulse Rate 88 84 84 Respiratory 20 20 20 Rate Blood Pressure 118/66 111/64 120/84 O2 Sat by Pulse 99 98 98 Oximetry 11/01/19 11/01/19 11/01/19 15:00 17:21 19:44 Temperature 99.8 F H 98.3 F Pulse Rate 83 90 Respiratory 18 20 18 Rate Blood Pressure 110/54 126/83 O2 Sat by Pulse 94 99 Oximetry 11/01/19 11/01/19 21:56 22:31 Temperature Pulse Rate Respiratory 18 Rate Blood Pressure O2 Sat by Pulse 96 Oximetry General appearance: Present: mild distress, well-nourished - EENT Eyes: PERRL, EOM intact ENT: hearing intact, clear oral mucosa Ears: bilateral: normal - Neck Neck: supple, normal ROM - Respiratory Respiratory effort: normal Respiratory: bilateral: CTA - Breasts Breasts: deferred - Cardiovascular Rhythm: regular Heart Sounds: Present: S1 & S2. Absent: gallop, rub Extremities: pulses intact, No edema, normal color, Full ROM - Gastrointestinal General gastrointestinal: Present: soft, non-tender, non-distended, normal bowel sounds Rectal Exam: deferred - Genitourinary Female genitourinary: deferred - Integumentary Integumentary: clear, warm, dry - Musculoskeletal Musculoskeletal: 1, strength equal bilaterally - Neurologic Neurologic: moves all extremities - Psychiatric Psychiatric: memory intact, appropriate mood/affect, intact judgment & insight - Labs CBC & Chem 7: 11/01/19 14:15 Labs: Abnormal lab results 10/31/19 11/01/19 Range/Units 20:32 14:15 Hgb 8.4 L (10.1-14.3) gm/dl Hct 23.3 L D (30.3-42.9) % Crossmatch See Detail
[2019-11-02] MEDS: D5W/0.2% NACL 1,000 ML IV SCH ×6 (01:06→23:43)
[2019-11-02] MEDS: HYDROmorphone 2 MG/1 ML INJ IV PRN ×6 (01:07→22:15)
[2019-11-02] MEDS: diphenhydrAMINE 50 MG/ML VIAL IV PRN ×6 (01:09→22:15)
[2019-11-02] MEDS: FOLIC ACID 1 MG TAB PO SCH (09:02)
[2019-11-02] MEDS: DEFEROXAMINE MESYLATE IV SCH (10:49)
[2019-11-02] MEDS: SODIUM CHLORIDE 0.9% IV SCH (10:49)
--- NOTE | 2019-11-02 21:11 | Progress Note ---
Assessment and Plan - Patient Problems (1) Sickle cell pain crisis Current Visit: No Status: Acute Plan to address problem: pain control. (2) Anemia Current Visit: No Status: Chronic Qualifiers: Anemia type: unspecified type Qualified Code(s): D64.9 - Anemia, unspecified Plan to address problem: see below. (3) Anemia requiring transfusions Current Visit: No Status: Chronic Plan to address problem: replacement transfusion. completed., and responded well. (4) Hypoxia Current Visit: No Status: Chronic Plan to address problem: oxygen. (5) Iron overload due to repeated red blood cell transfusions Current Visit: No Status: Chronic Plan to address problem: iron extraction therapy. Subjective Date of service: 11/02/19 Interval history: Patient seen/examined, resting in bed, labs/records reviewed, and ok, post 2units PRBCs transfusion. pain is rated today , at 6-7/10, an improvement following transfusion, and pain adjustment.This is day #2 of 4 of desf, and once completed, will d/c home. Patient seen/examined, resting in bed, records reviewed, case d/w patient.Pain better. once she finishes the 4th/last dose os desf, will d/c home on wednesday. Objective - Constitutional Vitals: Vital Signs - 12hr 11/02/19 11/02/19 11/02/19 09:25 10:49 13:19 Temperature 98.0 F Pulse Rate 79 Pulse Rate [ 76 Apical] Pulse Rate [ 76 Left Radial] Pulse Rate [ 76 Right Radial] Respiratory 18 18 Rate Blood Pressure 119/74 O2 Sat by Pulse 95 99 Oximetry 11/02/19 11/02/19 11/02/19 16:59 17:00 19:34 Temperature 98.1 F 98.2 F Pulse Rate 65 92 H 89 Pulse Rate [ Apical] Pulse Rate [ Left Radial] Pulse Rate [ Right Radial] Respiratory 19 18 Rate Blood Pressure 125/82 117/77 O2 Sat by Pulse 94 93 Oximetry General appearance: Present: mild distress, well-nourished - EENT Eyes: PERRL, EOM intact ENT: hearing intact, clear oral mucosa Ears: bilateral: normal - Neck Neck: supple, normal ROM - Respiratory Respiratory effort: normal Respiratory: bilateral: CTA - Breasts Breasts: deferred - Cardiovascular Rhythm: regular Heart Sounds: Present: S1 & S2. Absent: gallop, rub Extremities: pulses intact, No edema, normal color, Full ROM - Gastrointestinal General gastrointestinal: Present: soft, non-tender, non-distended, normal bowel sounds Rectal Exam: deferred - Genitourinary Female genitourinary: deferred - Integumentary Integumentary: clear, warm, dry - Musculoskeletal Musculoskeletal: 1, strength equal bilaterally - Neurologic Neurologic: moves all extremities - Psychiatric Psychiatric: memory intact, appropriate mood/affect, intact judgment & insight - Labs CBC & Chem 7: 11/01/19 14:15
[2019-11-02] MEDS: oxyCODONE ER 10 MG TAB PO SCH (23:39)
[2019-11-03] MEDS: HYDROmorphone 2 MG/1 ML INJ IV PRN ×8 (02:01→23:50)
[2019-11-03] MEDS: diphenhydrAMINE 50 MG/ML VIAL IV PRN ×8 (02:01→23:50)
[2019-11-03] MEDS: D5W/0.2% NACL 1,000 ML IV SCH ×4 (05:22→20:38)
[2019-11-03] MEDS: oxyCODONE ER 10 MG TAB PO SCH ×3 (07:35→22:08)
[2019-11-03] MEDS: SODIUM CHLORIDE 0.9% IV SCH (10:37)
[2019-11-03] MEDS: DEFEROXAMINE MESYLATE IV SCH (10:37)
[2019-11-03] MEDS: FOLIC ACID 1 MG TAB PO SCH (10:37)
--- NOTE | 2019-11-03 20:52 | Progress Note ---
Assessment and Plan - Patient Problems (1) Sickle cell pain crisis Current Visit: No Status: Acute Plan to address problem: pain control. (2) Anemia Current Visit: No Status: Chronic Qualifiers: Anemia type: unspecified type Qualified Code(s): D64.9 - Anemia, unspecified Plan to address problem: see below. (3) Anemia requiring transfusions Current Visit: No Status: Chronic Plan to address problem: replacement transfusion. completed., and responded well. (4) Hypoxia Current Visit: No Status: Chronic Plan to address problem: oxygen. (5) Iron overload due to repeated red blood cell transfusions Current Visit: No Status: Chronic Plan to address problem: iron extraction therapy. Subjective Date of service: 11/03/19 Interval history: Patient seen/examined, resting in bed, labs/records reviewed, and ok, post 2units PRBCs transfusion. pain is rated today , at 6-7/10, an improvement following transfusion, and pain adjustment.This is day #2 of 4 of desf, and once completed, will d/c home. Patient seen/examined, resting in bed, records reviewed, case d/w patient.Pain better. once she finishes the 4th/last dose of desf, will d/c home on wednesday. Patient seen/examined, resting in bed, rated pain back to 7-8/10, in the joints/muscles.Will continue to get pain better in control, before discharge. Continue with desf. Objective - Constitutional Vitals: Vital Signs - 12hr 11/03/19 11/03/19 11/03/19 10:00 11:45 14:00 Temperature 98.2 F Pulse Rate 84 84 Respiratory 16 Rate Respiratory 18 Rate [Chest] Blood Pressure 106/63 O2 Sat by Pulse 98 Oximetry 11/03/19 11/03/19 16:52 19:54 Temperature 98.2 F Pulse Rate 79 79 Respiratory 18 Rate Respiratory Rate [Chest] Blood Pressure 132/62 O2 Sat by Pulse 95 Oximetry General appearance: Present: mild distress, well-nourished - EENT Eyes: PERRL, EOM intact ENT: hearing intact, clear oral mucosa Ears: bilateral: normal - Neck Neck: supple, normal ROM - Respiratory Respiratory effort: normal Respiratory: bilateral: CTA - Breasts Breasts: deferred - Cardiovascular Rhythm: regular Heart Sounds: Present: S1 & S2. Absent: gallop, rub Extremities: pulses intact, No edema, normal color, Full ROM - Gastrointestinal General gastrointestinal: Present: soft, non-tender, non-distended, normal bowel sounds Rectal Exam: deferred - Genitourinary Female genitourinary: deferred - Integumentary Integumentary: clear, warm, dry - Musculoskeletal Musculoskeletal: 1, strength equal bilaterally - Neurologic Neurologic: moves all extremities - Psychiatric Psychiatric: memory intact, appropriate mood/affect, intact judgment & insight - Labs CBC & Chem 7: 11/01/19 14:15
[2019-11-04] MEDS: D5W/0.2% NACL 1,000 ML IV SCH ×5 (02:00→21:49)
[2019-11-04] MEDS: diphenhydrAMINE 50 MG/ML VIAL IV PRN ×7 (02:45→22:46)
[2019-11-04] MEDS: HYDROmorphone 2 MG/1 ML INJ IV PRN ×7 (02:45→22:46)
[2019-11-04 07:02] LABS: Hematocrit 22.3 % (30.3-42.9); Hemoglobin 7.9 gm/dl (10.1-14.3)
[2019-11-04] MEDS: oxyCODONE ER 10 MG TAB PO SCH ×3 (07:17→21:42)
[2019-11-04] MEDS: FOLIC ACID 1 MG TAB PO SCH (09:18)
[2019-11-04] MEDS: DEFEROXAMINE MESYLATE IV SCH (09:21)
[2019-11-04] MEDS: SODIUM CHLORIDE 0.9% IV SCH (09:21)
[2019-11-05] MEDS: D5W/0.2% NACL 1,000 ML IV SCH ×4 (02:28→13:23)
[2019-11-05] MEDS: HYDROmorphone 2 MG/1 ML INJ IV PRN ×2 (02:28→05:38)
[2019-11-05] MEDS: diphenhydrAMINE 50 MG/ML VIAL IV PRN ×5 (02:29→15:25)
[2019-11-05] MEDS: oxyCODONE ER 10 MG TAB PO SCH ×2 (06:10→14:18)
[2019-11-05] MEDS: FOLIC ACID 1 MG TAB PO SCH (09:20)
[2019-11-05] MEDS: HYDROmorphone 1 MG/1 ML INJ IV PRN ×3 (09:20→15:24)
--- NOTE | 2019-11-05 13:30 | Discharge Summary ---
Providers - Providers Date of Admission: 10/31/19 13:55 Date of discharge: 11/05/19 (1-2hrs after the next dose pain medication.) Attending physician: CAM PARSON Primary care physician: CAM PARSON Hospitalization Reason for admission: SCD/symptomatic anemia/dehydration. Condition: Fair Hospital course: Patient presented, and was admitted to the hospital, due to uncontrollable pain crisis. She was treated with hydration, pain control, and was transfused PRBCs. She did fair , as far as response to treatment. She was also treated for chronic iron overload.She will be d/c home 1-2hrs after the next pain med. She stated that the chest wall reproducible pain had subsided. Disposition: TO HOME OR SELFCARE - Discharge Diagnoses (1) Sickle cell pain crisis Status: Resolved (2) Anemia Status: Chronic Qualifiers: Anemia type: unspecified type Qualified Code(s): D64.9 - Anemia, unspecified (3) Anemia requiring transfusions Status: Chronic (4) Hypoxia Status: Chronic (5) Iron overload due to repeated red blood cell transfusions Status: Chronic Core Measure Documentation - Palliative Care Palliative Care/ Comfort Measures: Not Applicable - Core Measures Any of the following diagnoses?: none Exam - Constitutional Vitals: Temp Pulse Resp BP Pulse Ox 98.9 F 103 H 18 100/47 95 11/05/19 13:05 11/05/19 13:05 11/05/19 13:05 11/05/19 13:05 11/05/19 13:05 General appearance: Present: mild distress, well-nourished - EENT Eyes: Present: PERRL ENT: hearing intact, clear oral mucosa - Neck Neck: Present: supple, normal ROM - Respiratory Respiratory effort: normal Respiratory: bilateral: CTA - Cardiovascular Heart Sounds: Present: S1 & S2. Absent: rub, click - Extremities Extremities: pulses symmetrical, No edema Peripheral Pulses: within normal limits - Abdominal General gastrointestinal: Present: soft, non-tender, non-distended, normal bowel sounds Female genitourinary: Present: deferred - Rectal Rectal Exam: deferred - Integumentary Integumentary: Present: clear, warm, dry - Musculoskeletal Musculoskeletal: gait normal, strength equal bilaterally - Psychiatric Psychiatric: appropriate mood/affect, intact judgment & insight - Neurologic Neurologic: CNII-XII intact, moves all extremities Plan Activity: no restrictions Diet: regular Follow up with: CAM PARSON DO [Primary Care Provider] - 7 Days
[2019-11-05 15:24] VITALS: BP 117/66
== END 2019-11-05 16:57 | disposition home or self-care (01) | DRG 812 ==
LOC: UNDOADMIN 13:42 → 4A 13:42
PROVIDERS: ADMIT Internal Medicine Hematology & Oncology; ATTEND Internal Medicine Hematology & Oncology
PROC: 30233N1 Transfusion of Nonautologous Red Blood Cells into Peripheral Vein, Percutaneous Approach (ICD-10-PCS; principal; 2019-11-01)
DX: D57.00 Hb-SS disease with crisis, unspecified (principal); D64.9 Anemia, unspecified; R09.02 Hypoxemia; E83.111 Hemochromatosis due to repeated red blood cell transfusions; Z88.6 Allergy status to analgesic agent; Z88.1 Allergy status to other antibiotic agents
CPT/HCPCS: 36415; 81001; 82728; 85014; 85018; 85045; 85660; 86850; 86900; 86901; 86922; 87040; 87116; 87641; 94760; G0378; J0895; J1170; J1200; J1642; J7030; J7040; J7050; P9016

== ENCOUNTER 2020-02-01 08:37 | Emergency (ER) | payer MEDICAID ==
[2020-02-01 09:01] VITALS: BP 114/63
[2020-02-01] MEDS ORDERED: SODIUM CHLORIDE 0.9% 1000 ML 1,000 ML IV ONE ×2 (14:36→16:51)
[2020-02-01] MEDS ORDERED: HYDROmorphone 2 MG/1 ML INJ IV ONE (14:36)
--- NOTE | 2020-02-01 14:38 | Emergency Department Report ---
HPI - General Chief Complaint: Sickle Cell Crisis Time Seen by Provider: 02/01/20 14:29 - HPI HPI: This is a 29-year-old female presents to the emergency department with a complaint of generalized pain that she believes is secondary to a sickle cell pain crisis. She says that the pain was in the bilateral legs but since she has had a wait in the emergency department waiting room she now says the pain is "everywhere." She denies any fever, chest pain, shortness of breath, lower extremity swelling. She is on hydroxyurea, folic acid, and home narcotic pain medication without any relief. The patient was admitted to [facility] of [facility] a week ago and received a blood transfusion so the patient says "my energy level is better now but I do not know what is going on with this pain." No recent travel or sick contacts at home. Her primary care physician/account supervisor is Dr. Robins. ED Past Medical Hx - Past Medical History Previous Medical History?: Yes Hx Hypertension: No Hx Heart Attack/AMI: No Hx Congestive Heart Failure: No Hx Diabetes: No Hx Deep Vein Thrombosis: No Hx Pulmonary Embolism: No Hx GERD: No Hx Liver Disease: No Hx Renal Disease: No Hx Sickle Cell Disease: Yes Hx Arthritis: No Hx Headaches / Migraines: No Hx Seizures: No Hx Kidney Stones: No Hx Asthma: No Hx COPD: No Hx Tuberculosis: No Hx Dementia: No Hx HIV: No - Surgical History Past Surgical History?: Yes Hx Coronary Stent: No Hx Open Heart Surgery: No Hx Pacemaker: No Hx Internal Defibrillator: No Hx Cholecystectomy: No Hx Appendectomy: Yes Hx Breast Surgery: No Additional Surgical History: Port a cath placement. - Social History Smoking Status: Never Smoker Substance Use Type: None - Medications Home Medications: Home Medications Medication Instructions Recorded Confirmed Last Taken Type Folic Acid [Folvite] 1 mg PO DAILY 01/24/18 11/02/19 11/02/19 11:55 History Hydroxyurea 1,500 mg PO DAILY 01/24/18 11/02/19 10/31/19 History Hydromorphone HCl [Dilaudid] 4 mg PO Q4H PRN 12/10/18 11/02/19 11/02/19 11:55 History Ibuprofen [Motrin] 400 mg PO Q6H PRN 12/10/18 11/02/19 06/27/19 09:00 History oxyCODONE ER [oxyCONTIN ER] 10 mg PO Q12HR 12/10/18 11/02/19 06/26/19 22:00 History ED Review of Systems ROS: Stated complaint: sickle Cell crisis Other details as noted in HPI Comment: All other systems reviewed and negative Constitutional: denies: chills, fever Eyes: denies: eye pain, vision change ENT: denies: ear pain, throat pain Respiratory: denies: cough, shortness of breath Cardiovascular: denies: chest pain, palpitations Gastrointestinal: denies: nausea, vomiting Genitourinary: denies: dysuria, discharge Musculoskeletal: arthralgia, myalgia. denies: joint swelling Skin: denies: rash, lesions Neurological: denies: headache, numbness, paresthesias Physical Exam - Physical Exam Vital Signs: Vital Signs 02/01/20 08:58 Temperature 99.2 F Pulse Rate 105 H Respiratory 20 Rate Blood Pressure 114/63 O2 Sat by Pulse 99 Oximetry Physical Exam: GENERAL: The patient is well-developed well-nourished. HENT: Normocephalic. Atraumatic. Patient has moist mucous membranes. EYES: Extraocular motions are intact. NECK: Supple. Trachea is midline. CHEST/LUNGS: Clear to auscultation. There is no respiratory distress noted. HEART/CARDIOVASCULAR: Regular. There is no tachycardia. ABDOMEN: Abdomen is soft, nontender. Patient has normal bowel sounds. SKIN: Skin is warm and dry. NEURO: The patient is awake, alert, and oriented. The patient is cooperative. The patient has no focal neurologic deficits. Normal speech. MUSCULOSKELETAL: There is tenderness to palpation along the bilateral lower extremities but no obvious deformity. There is no limitation range of motion. ED Course Vital Signs 02/01/20 08:58 Temperature 99.2 F Pulse Rate 105 H Respiratory 20 Rate Blood Pressure 114/63 O2 Sat by Pulse 99 Oximetry - Reevaluation(s) Reevaluation #1: 02/01/20 18:19 This patient has left the emergency department and eloped AGAINST MEDICAL ADVICE. After the patient received IV analgesia, her blood pressure has a systolic in the low to mid 90s. A unit of packed red blood cells has been ordered for transfusion due to the hemogloin of 6.7. Another liter of IV fluid has also been ordered, and the patient was to receive a smaller dose of IV analgesia, Dilaudid, for pain control. I spoke to the admitting hospitalist, Dr. Serraon, about admitting this patient secondary to the low hemoglobin and for pain control. I was not there for the conversation between the patient and the hospitalist, but it appears that the patient was not pleased with the amount of pain medication that was offered or with attempting to treat her pain with other modalities or medications. Per the hospitalist, the patient only will accept Dilaudid. When patient heard that there may be other medications used instead of Dilaudid, or she was not going to receive the amount of Dilaudid she wanted, the patient kicked the hospitalist out of the room and announced that she is leaving the emergency department to go to another hospital. The patient would not agree to sign an AMA form. We also told the patient repeatedly that we needed to remove her port access, but the patient would not allow us to do so. At this point the patient eloped from the emergency department. It is been about 3 hours since the patient last received IV narcotics and she is not currently intoxicated. She is awake, oriented and has a normal decision- making capacity. For these reasons we can not force her to stay in the emergency department. Risk management will be notified regarding the port access. ED Medical Decision Making - Lab Data Result diagrams: 02/01/20 15:49 02/01/20 15:49 - Medical Decision Making This patient presents to the emergency department with a complaint of initially having bilateral lower extremity pain but then complained of generalized pain. On examination the patient has normal sounding heart and lungs to auscultation. She does not appear in any acute or respiratory distress. Patient's port was accessed and she received IV fluid resuscitation and a dose of IV analgesia. Patient's labs came back showing hemoglobin of 6.7, reticulocyte count of about 5 and a normal metabolic panel. The patient's vital signs have essentially been reassuring throughout her ED course including being afebrile. However, after receiving IV analgesia the patient's systolic blood pressure was in the 90s. While the patient is not hypotensive, as she has a normal mean arterial pressure, this will limit our ability to give IV and oral narcotic analgesia. Another liter of IV fluid was ordered. 1 unit of packed red blood cells was ordered for transfusion, and another dose of IV analgesia was ordered, although a smaller dose secondary to the current blood pressure. Since the patient has a hemoglobin of 6.7 requiring transfusion, and since the patient's blood pressure may not allow me to provide sufficient pain control, I planned to admit the patient to the hospital for further evaluation and treatment. As per the reevaluation section, the patient became upset that she would not receive higher doses of Dilaudid and was not open to other medications or treatment modalities. At this time the patient eloped AMA from the hospital and would not allow us to de-access her port. It has been a sufficient amount of time since her previous pain medication that we are well past the half-life and the patient is not sedated. Critical Care Time: No Critical care attestation.: If time is entered above; I have spent that time in minutes in the direct care of this critically ill patient, excluding procedure time. ED Disposition Clinical Impression: Sickle cell pain crisis Anemia Qualifiers: Anemia type: unspecified type Qualified Code(s): D64.9 - Anemia, unspecified Disposition: DC- LEFT AGAINST MED ADVICE Is pt being admited?: No Time of Disposition: 19:05
[2020-02-01 16:04] LABS: Hematocrit 20.2 % (30.3-42.9); Hemoglobin 6.7 gm/dl (10.1-14.3); Mean Corpuscular HGB Conc 33 % (30-34); Mean Corpuscular Volume 89 fl (79-97); Platelet Count 281 K/mm3 (140-440); Red Blood Count 2.27 M/mm3 (3.65-5.03); Red Cell Distribution Width 18.5 % (13.2-15.2)
[2020-02-01 16:23] LABS: BUN/Creatinine Ratio 20; Blood Urea Nitrogen 14 mg/dL (7-17); Calcium 8.9 mg/dL (8.4-10.2); Hemolysis Index 14
[2020-02-01] MEDS ORDERED: diphenhydrAMINE 50 MG/ML VIAL IV ONE (16:51)
[2020-02-01] MEDS ORDERED: HYDROmorphone 1 MG/1 ML INJ IV ONE (16:51)
[2020-02-01 17:04] LABS: Anisocytosis 1+; Sickle Cells Few; Total Cells Counted 100
[2020-02-01 17:05] LABS: Hypochromasia Few; Spherocytes Rare
[2020-02-01] MEDS ORDERED: SODIUM CHLORIDE 0.9% 500 ML 500 ML IV ONE (17:33)
== END 2020-02-01 18:25 | disposition left against medical advice (07) ==
LOC: ED 08:37
DX: D57.00 Hb-SS disease with crisis, unspecified (principal); D64.9 Anemia, unspecified; Z90.49 Acquired absence of other specified parts of digestive tract; Z98.890 Other specified postprocedural states; Z79.1 Long term (current) use of non-steroidal anti-inflammatories (NSAID); Z79.899 Other long term (current) drug therapy; Z88.8 Allergy status to other drugs, medicaments and biological substances
CPT/HCPCS: 36415; 80048; 82550; 85007; 85025; 85045; 96361; 96374; 99283; J1170; J7030